=== PATIENT | male | born 1975 | race Caucasian/White ===

== ENCOUNTER 2019-01-16 09:19 | Emergency (ER) | payer BC, SELFPAY ==
[2019-01-16 09:20] VITALS: BP 218/134; PULSE 113; RESP 17; TEMP 37; O2SAT 96; BMI 47.5
[2019-01-16 09:31] VITALS: RESP 18
--- NOTE | 2019-01-16 09:31 | CT_ITS ---
STUDY: CT ABDOMEN AND PELVIS WITHOUT CONTRAST REASON FOR EXAM: Male, 43 years old. Left pelvic pain RADIATION DOSAGE (If Supplied By Facility): CTDIvol = ( 19.99 ) mGy, DLP = ( 2035.03 ) mGycm TECHNIQUE: Transaxial images were obtained from the dome of the diaphragm to the symphysis pubis without oral contrast, and without intravenous contrast. Sagittal and coronal images were reconstructed. Individualized dose optimization techniques were used for this CT. COMPARISON: None. FINDINGS: The visualized lung bases are unremarkable. The visualized portions of the heart are within normal limits. Normal liver. There is non-visualization of the gallbladder, which may be secondary to either contraction or a prior cholecystectomy. Normal spleen. Normal pancreas. Normal bilateral adrenal glands. Normal right kidney. Normal left kidney. Normal visualized stomach. Normal small intestine. There are a few scattered colonic diverticula. The appendix is visualized and appears normal. Appendix best seen on coronal recon image 61. Normal abdominal aorta. Normal inferior vena cava. Normal retroperitoneum. There is nonspecific induration of the pelvic fat is seen on axial image 178. This could be due to a focal diverticulitis but a cystitis can also not be excluded. No abscess cavity or free pelvic air noted. There is nonspecific bladder wall thickening, but the bladder is not completely distended. There are prostatic calcifications. Normal abdominal wall. Normal osseous structures. CT/Abdomen/Pelvis without Cont IMPRESSION: Colonic diverticulosis. No suspicious thickening of the colon noted, there is nonspecific induration of the pelvic fat which could be due to a focal diverticulitis or cystitis. Although the bladder is not completely distended, there is nonspecific circumferential bladder wall thickening. No suspicious solid organ abnormality No free intraperitoneal fluid, air, or suspicious adenopathy Electronically Signed: Sean Quiroga MD at 10:43 EDT , Service support ,
--- NOTE | 2019-01-16 09:32 | US_ITS ---
STUDY: SCROTUM ULTRASOUND REASON FOR EXAM: Male, 43 years old. Left testicular pain TECHNIQUE: Ultrasound evaluation of the scrotum was performed with color Doppler and static lala-scale imaging. COMPARISON: None. FINDINGS: RIGHT TESTICLE INTRATESTICULAR: There is a normal size of the right testicle. The right testicle measures 4.9 x 3.2 x 2.5 cm. There is a homogenous echotexture. There is normal arterial and normal venous vascularity. There is no demonstrated right testicular mass or cyst. EXTRATESTICULAR: The epididymis is normal in size. The epididymis head measures 2.3 x 1.1 x 1.3 cm. There is normal vascularity of the epididymis. There is an epididymal head cyst measuring 1.5 x 0.9 x 1 cm There is a small hydrocele. There are prominent extratesticular veins consistent with a varicocele. There is no demonstrated extratesticular mass or cyst. LEFT TESTICLE INTRATESTICULAR: There is a normal size of the left testicle. The left testicle measures 4.2 x 3.3 x 3 cm. There is a homogenous echotexture. There is increased arterial and increased venous vascularity. There is no demonstrated left testicular mass or cyst. EXTRATESTICULAR: The epididymis is normal in size. The epididymis head measures 1.7 x 1.6 x 1 cm. There is normal vascularity of the epididymis. There is no demonstrated epididymal cystic structure. There is a moderate to large size hydrocele. There are prominent extratesticular veins consistent with a varicocele. There is no demonstrated extratesticular mass or cyst. US/Testicular with Arterial Flow IMPRESSION: There is left testicular hyperemia which may represent orchitis. No evidence of testicular torsion. Small right and moderate to large left hydroceles. Bilateral varicoceles. Right epididymal head cyst. Electronically Signed: Nathanael Huizar, at 12:15 EDT Tel , Service support ,
--- NOTE | 2019-01-16 09:32 | RAD_ITS ---
STUDY: X-RAY CHEST REASON FOR EXAM: Male, 43 years old. Chest pain and cough TECHNIQUE: PA and lateral views of the chest. COMPARISON: 2012 FINDINGS: The lungs are clear and expanded. There is no demonstrated pleural abnormality. Normal size heart. Normal mediastinum and kip. Normal visualized pulmonary arteries. Normal visualized aortic arch and descending thoracic aorta. Normal visualized thoracic spine. Normal visualized ribs, clavicles, and shoulders. There is no demonstrated abnormality of the visualized soft tissue structures of the upper abdomen. RAD/Chest PA and Lateral IMPRESSION: Normal x-ray examination of the chest. Electronically Signed: Sean Quiroga MD at 10:15 EDT , Service support ,
--- NOTE | 2019-01-16 09:36 | ED.VIS.GEN ---
History of Present Illness Chief Complaint: Male Pain/Injury Narrative: 43-year-old male presents with left testicular pain that started last night. He then noticed bilateral flank pain, somewhat worse on the left that was radiating anteriorly. His left testicle became somewhat swollen. He then ejaculated and noticed blood in his semen which has never happened to him before. He denies lower extremity edema or right testicular swelling. Denies shortness of breath. Denies weakness. He has a history of labile blood pressure and does not take blood pressure medication. He denies any recent testicular trauma. Denies concern for STD. No dysuria or hematuria, just blood in his semen. Past Medical History - Allergies and Home Meds Allergies/Adverse Reactions: Allergies No Known Allergies Allergy (Verified 01/16/19 09:20) Primary Care Physician: Care Physician,No Primary [Primary Care Provider] - Surgical History: no surgical history Smoking Status: Current every day smoker Review of Systems All systems negative except as indicated General: Denies: Chills, Fever, Sweats Eyes: Denies: Visual changes - bilaterally, Diplopia ENT: Denies: Rhinorrhea, Sore throat Cardiovascular: Denies: Chest pain, Palpitations Respiratory: Denies: Dyspnea, Cough, Dyspnea on exertion Gastrointestinal: Denies: Abdominal pain, Nausea, Vomiting, Diarrhea, Melena, Hematochezia Genitourinary: Reports: - - left testicle swelling/pain. Denies: Dysuria, Hematuria, Frequency Musculoskeletal: Reports: Back pain. Denies: Extremity Pain Skin: Denies: Rash, Wounds Neurological: Denies: Headache, Weakness, Numbness Physical Exam Vital Signs/Narrative: Vital Signs Temp Pulse Resp BP Pulse Ox 01/16/19 09:31 18 01/16/19 09:20 98.6 F 113 H 17 218/134 H 96 General: Well nourished, Well developed, No Acute Distress Head: Normocephalic, Atraumatic Eyes: Perrl, EOMI ENT: Moist mucous membranes, No rhinorrhea Neck: Supple, Nontender Cardiovascular: Regular rate, Regular rhythm, No murmurs Respiratory: No distress, CTA bilaterally, Chest nontender Abdomen: Soft, Nontender, Nondistended, Normal bowel sounds : - - Left testicular swelling, blood in semen Back: Nontender, Normal Inspection Extremities: Nontender, No edema Skin: Normal color, No rash Neurological: Alert, Oriented x3, Cranial nerves II-XII grossly intact, Normal Strength, Normal Sensation Psychological: Normal affect, Normal Mood Diagnostic/Tx/Re-eval - Medical Decision Making CT abdomen/pelvis revealed inflammation around the bladder. No obstructing ureteral stone. His urine appears infected with positive nitrites and bacteria. It was sent for a culture. White blood cell count only mildly elevated at 12.7. Chemistry panel unremarkable. Ultrasound the left testicle was consistent with orchitis. He was given Percocet for pain. I discussed the case with Dr. England who recommended oral Bactrim and close follow-up. The patient was instructed to come back if he develops a fever or is unable to tolerate his oral medication, or worse pain. ED Disposition - Plan for ED Patient: Disposition: Home or Assisted Living Diagnosis: Orchitis of left testicle, Lower urinary tract infection, acute Instructions: Orchitis, Urinary Tract Infections in Men, Bladder Infection, Male (Adult) Prescriptions: Smz/Tmp Ds [Bactrim Ds] 1 tablet PO BID #20 tablet Naproxen [Naprosyn] 500 mg PO BID PRN #20 tablet Referrals: Ye England MD [STAFF PHYSICIAN] - As soon as possible
[2019-01-16 09:51] LABS: Absolute Lymphocyte Count 1.78 X10^3/uL (0.83-4.51); Absolute Neutrophil Count 9.7 X10^3/uL (2.0-7.7); Basophil# 0.07 X10^3/uL; Basophil% 0.6 % (0-1); Eosinophil# 0.14 X10^3/uL; Eosinophils% 1.1 % (0-5); Hematocrit 52.1 % (40-54); Hemoglobin 17.5 g/dL (13.0-16.5); Lymphocyte # 1.78 X10^3/ul (4.0); Lymphocyte % 14.1 % (19-41); Mean Corp Hgb Conc 33.6 g/dL (32-36); Mean Corpuscular Hgb 31.6 pg (27.0-32.0); Mean Corpuscular Volume 94.2 fL (80-94); Mean Platelet Vol. 10.4 fl (6.2-12.0); Monocyte# 0.93 X10^3/uL; Monocyte% 7.3 % (0-10); NRBC Flagged by Analyzer 0 % (0-5); Neutrophil # 9.68 X10^3/uL (2.7-7.7); Neutrophil % 76.4 % (47-70); Platelet Count 179 K/mm3 (150-450); RBC Distribution Width CV 13.2 % (11.6-14.6); RBC Distribution Width SD 45.9 fl (35.1-43.9); Red Blood Count 5.53 M/mm3 (4.6-6.2); White Blood Count 12.7 K/mm3 (4.4-11.0)
[2019-01-16 10:02] LABS: Anion Gap 3 (5-15); BUN 16 mg/dL (7-18); BUN/Creat Ratio 17.5 RATIO (10-20); Calcium,Total 8.7 mg/dL (8.5-10.1); Chloride 108 mmol/L (98-107); Creatinine, Serum 0.91 mg/dL (0.70-1.30); EST Glomerular Filtration Rate 95 mL/min (>60); Est Glom Filt Rate - Afr Amer 115 mL/min (>60); Estimated Creatinine Clearance 105.85 ml/min; Glucose 104 mg/dL (74-106); Potassium 4.1 mmol/L (3.5-5.1); Sodium Level 140 mmol/L (136-145)
[2019-01-16 10:12] LABS: Mucous, Urine 0 SEEN /hpf (<or=2+); Squamous Epithelial Cells - UA 0 SEEN /hpf (0-5)
[2019-01-16 10:17] LABS: Color, Urine Amber (Yellow); Glucose, Dipstick Normal (Normal); Ketone-Dipstick 5 mg/dl (Negative); Leukocyte Esterase-Dipstick 500 /ul (Negative); Nitrite-Dipstick Positive (Negative); Occult Blood-Urine 250 /ul (Negative); Protein-Dipstick 30 mg/dl (Negative); Specific Gravity, Urine 1.015 (1.002-1.030); Urine Bilirubin Dipstick Negative (Negative); Urine Clarity Cloudy (Clear); Urine Urobilinogen 1 mg/dl (Normal); Urine pH 6.5 (5.0 - 8.0)
[2019-01-16 10:25] LABS: Red Blood Cells-Urine 50-100 SEEN /hpf (0-5); White Blood Cells 5-10 SEEN /hpf (0-5)
[2019-01-16 10:26] LABS: Bacteria 3+ /hpf (None Seen)
[2019-01-16] MEDS: oxyCODONE 5 MG Tablet PO (12:10)
[2019-01-16] MEDS: Smz/Tmp Ds Tablet 1 TABLET PO (12:10)
[2019-01-16 12:11] VITALS: RESP 18
== END 2019-01-16 13:33 | disposition home or self-care (01) ==
PROVIDERS: Emergency Provider Emergency Medicine
DX: N45.2 Orchitis (principal); N39.0 Urinary tract infection, site not specified; F17.200 Nicotine dependence, unspecified, uncomplicated
CPT/HCPCS: 71046; 74176; 76870; 80048; 81001; 85025; 87077; 87086; 87088; 87186; 93976; 99283; A4216

== ENCOUNTER 2021-09-12 12:46 | Emergency (ER) | payer MEDICAID, SELFPAY ==
[2021-09-12 12:46] VITALS: BP 218/126; PULSE 120; RESP 18; TEMP 36.1; O2SAT 95; BMI 50.3
[2021-09-12 14:14] VITALS: BP 207/127; PULSE 108; RESP 18; O2SAT 95
--- NOTE | 2021-09-12 14:22 | EDS_ITS ---
HPI <LYNSEY Stone - Last Filed: 09/12/21 15:57> History of Present Illness Chief Complaint: Hypertension Narrative Narrative: 46-year-old male presents with high blood pressure. He states he has not seen a doctor since 2012. Yesterday he went to get his Covid booster shot but he had a cough so they would not administer it. They checked his blood pressure and it was high in the 200s/100s. He states when he told his friends at the [facility] they guilt tripped into coming to the ER to get checked out. He has never been on medication for HTN. He states he had a cold last week and now just has his chronic smoker's cough. He smokes 1.5 PPD. He has a [id number] history. He has dyspnea on exertion but denies chest pain. He has occasional lower extremity swelling. He has no known cardiac history. He states his blood pressure has been high for a while and some visiting clinic at the [facility] prescribe him BP meds but it was never sent to his pharmacy. [facility] <LYNSEY Stone - Last Filed: 09/12/21 15:57> [facility] Medical History (Updated 09/12/21 @ 15:18 by LYNSEY Stone) Cholecystectomy planned Home Medications naproxen 500 mg PO BID PRN #20 tab 01/16/19 [Rx Last Taken Unknown] sulfamethoxazole-trimethoprim 1 tab PO BID #20 tab 01/16/19 [Rx Last Taken Unknown] metoprolol tartrate [Lopressor] 50 mg PO DAILY #30 tab 09/12/21 [Rx Last Taken Unknown] Allergy/AdvReac Type Severity Reaction Status Date / Time No Known Allergies Allergy Verified 01/16/19 09:20 Social History Smoking Status: Current every day smoker tobacco type: cigarettes ROS <LYNSEY Stone - Last Filed: 09/12/21 15:57> ROS ED ROS Narrative Constitutional: Negative for fever, chills, malaise. Eyes: Negative for visual change. ENT: Negative for sore throat, rhinorrhea. CVS: Negative for palpitations, chest pain, syncope. Respiratory: Positive for dyspnea on exertion, cough. Negative for orthopnea. GI: Negative for abdominal pain, nausea, vomiting, diarrhea, constipation, melena, hematochezia. : Negative for dysuria, hematuria or frequency. Neuro: Negative for headache, motor/sensory dysfunction. Skin: Negative for rash, abscess, or wound. Musc: Negative for joint pain, swelling, trauma. Heme: Negative for easy bruising, bleeding, lymphadenopathy. EXAM <LYNSEY Stone - Last Filed: 09/12/21 15:57> Physical Exam Narrative Exam Narrative: CONST: Patient sitting in no acute distress. EYES: Normal inspection. ENT: Normal inspection, moist mucous membranes. NECK: Normal inspection. RESP: No respiratory distress, CTAB. CVS: Regular rate and rhythm, no murmur, no gallop. ABD: Soft and nontender, no guarding or rebound, nondistended. Back: Normal inspection, no CVA tenderness. SKIN: Color normal, no rash, warm, dry, intact. EXTREMITIES: Normal appearance, 1+ pitting edema both ankles. NEURO: Oriented x4. PSYCH: Normal affect. Const Vital Signs: 09/12/21 12:46 09/12/21 14:12 09/12/21 14:14 Temperature 97 F L Temperature Source Temporal Pulse Rate 120 H 108 H Respiratory Rate 18 18 Respiratory Pattern Normal Blood Pressure 218/126 H 207/127 H Blood Pressure Mean 156 153 Pulse Ox 95 95 Oxygen Delivery Method Room Air Room Air 09/12/21 14:33 09/12/21 16:15 Temperature 98.4 F Temperature Source Pulse Rate 101 H 84 Respiratory Rate 22 H 14 Respiratory Pattern Blood Pressure 197/122 H 190/107 H Blood Pressure Mean 147 Pulse Ox 96 98 Oxygen Delivery Method Room Air <Ervin Ryan MD - Last Filed: 09/12/21 22:54> Physical Exam Const Vital Signs: 09/12/21 12:46 09/12/21 14:12 09/12/21 14:14 Temperature 97 F L Temperature Source Temporal Pulse Rate 120 H 108 H Respiratory Rate 18 18 Respiratory Pattern Normal Blood Pressure 218/126 H 207/127 H Blood Pressure Mean 156 153 Pulse Ox 95 95 Oxygen Delivery Method Room Air Room Air 09/12/21 14:33 09/12/21 16:15 Temperature 98.4 F Temperature Source Pulse Rate 101 H 84 Respiratory Rate 22 H 14 Respiratory Pattern Blood Pressure 197/122 H 190/107 H Blood Pressure Mean 147 Pulse Ox 96 98 Oxygen Delivery Method Room Air MDM <LYNSEY Stone - Last Filed: 09/12/21 15:57> MDM MDM Narrative Medical decision making narrative: Patient presents with asymptomatic hypertension. In triage his BP was 218/126, heart rate 120, otherwise normal. During my examination his blood pressure remained high but his heart rate is around 105. His heart is rapid but regular. Lungs are clear to auscultation. Abdomen soft and nontender. He has scant lower extremity edema. EKG is normal sinus rhythm with no acute ischemia. Basic labs and troponin are obtained and show no end-organ damage. Chest x-ray was negative. He was treated with IV labetalol 10 mg and BP improved to 188/113. He is likely had underlying high blood pressure for a long period of time as he has not seen a doctor in many years. He will be started on metoprolol 50 mg once daily and was given a PCP referral. He was discharged in stable condition. Diagnosis 1. Hypertension Lab Data Labs: Laboratory Results - last 24 hr 09/12/21 09/12/21 14:20 14:20 WBC 9.9 RBC 5.43 Hgb 17.4 H Hct 50.6 MCV 93.2 MCH 32.0 MCHC 34.4 RDW Std Deviation 43.9 RDW Coeff of Angelo 12.8 Plt Count 181 MPV 9.6 Immature Gran % (Auto) 0.400 Neut % (Auto) 72.8 H Lymph % (Auto) 16.8 L [place] % (Auto) 8.0 Eos % (Auto) 1.5 Baso % (Auto) 0.5 Absolute Neuts (auto) 7.2 Absolute Lymphs (auto) 1.66 Nucleated RBC % 0 Sodium 141 Potassium 3.7 Chloride 108 H Carbon Dioxide 31.0 Anion Gap 2 L BUN 20 H Creatinine 1.01 Estim Creat Clear Calc 95.26 Est GFR (MDRD) Af Amer 101 Est GFR (MDRD) Non-Af 84 BUN/Creatinine Ratio 19.8 Glucose 102 Calcium 9.4 Troponin I High Sens 27 Radiography Diagnostic Testing: Clinical Impression(s) from Imaging Studies Chest X-Ray 09/12/21 14:50 IMPRESSION: There are no acute findings. Electronically Signed: Anshul Gonzales MD at 15:19 EDT , ED attending interpretation of chest x-ray shows normal heart size, no acute infiltrate or edema EKG Initial EKG: Attestation: I personally reviewed and interpreted this EKG as follows: Interpretation: Sinus Rhythm Comments: Normal sinus rhythm, normal intervals, no acute ischemia <Ervin Ryan MD - Last Filed: 09/12/21 22:54> MDM MDM Narrative Medical decision making narrative: ATTENDING NOTE: Dr. Ryan: The patient was seen in conjunction with the PA-C/nurse practitioner. I performed a history and physical, and agree with the management of this patient. I agree with noted documentation and plan. I discussed the plan of care and final disposition with the physician associate/nurse practitioner. Elevated blood pressure. Asymptomatic. No chest pain or shortness of breath. Afebrile. Vital signs noted. Regular rate and rhythm. Lungs clear to auscultation bilaterally. Abdomen soft nontender. Neurological examination nonfocal and nonlateralizing. Check labs. Antihypertensives. Follow-up primary care. Discharge. Lab Data Attestation: I reviewed the patient's lab results. Labs: Laboratory Results - last 24 hr 09/12/21 09/12/21 14:20 14:20 WBC 9.9 RBC 5.43 Hgb 17.4 H Hct 50.6 MCV 93.2 MCH 32.0 MCHC 34.4 RDW Std Deviation 43.9 RDW Coeff of Angelo 12.8 Plt Count 181 MPV 9.6 Immature Gran % (Auto) 0.400 Neut % (Auto) 72.8 H Lymph % (Auto) 16.8 L [place] % (Auto) 8.0 Eos % (Auto) 1.5 Baso % (Auto) 0.5 Absolute Neuts (auto) 7.2 Absolute Lymphs (auto) 1.66 Nucleated RBC % 0 Sodium 141 Potassium 3.7 Chloride 108 H Carbon Dioxide 31.0 Anion Gap 2 L BUN 20 H Creatinine 1.01 Estim Creat Clear Calc 95.26 Est GFR (MDRD) Af Amer 101 Est GFR (MDRD) Non-Af 84 BUN/Creatinine Ratio 19.8 Glucose 102 Calcium 9.4 Troponin I High Sens 27 Radiography Diagnostic Testing: Clinical Impression(s) from Imaging Studies Chest X-Ray 09/12/21 14:50 IMPRESSION: There are no acute findings. Electronically Signed: Anshul Gonzales MD at 15:19 EDT , Discharge Plan Triage Chief Complaint: Hypertension ED Provider: Lakisha Loving Dx/Rx/DC Orders Clinical Impression: Hypertension Instructions: ED High Blood Pressure Hypertension Prescriptions: New metoprolol tartrate [Lopressor] 50 mg tablet 50 mg PO DAILY Qty: 30 RF: 2 No Action sulfamethoxazole-trimethoprim 1 TABLET tablet 1 tab PO BID Qty: 20 RF: 0 naproxen 500 MG tablet 500 mg PO BID PRN Qty: 20 RF: 0 Primary Care Provider: Care Physician,No Primary Referrals: Lakisha Paris DO [STAFF PHYSICIAN] - Care Physician,No Primary [Primary Care Provider] - Activity Restrictions/Additional Instructions: I am prescribing a blood pressure medication called metoprolol 50 mg. Take this once daily at the same time every day. Please call the primary care doctor listed above for a follow-up appointment. Disposition Disposition: Home, Self Care Discharge Date/Time: 09/12/21 16:16
[2021-09-12 14:31] LABS: Absolute Lymphocyte Count 1.66 X10^3/uL (0.83-4.51); Absolute Neutrophil Count 7.2 X10^3/uL (2.0-7.7); Basophil# 0.05 X10^3/uL; Basophil% 0.5 % (0-1); Eosinophil# 0.15 X10^3/uL; Eosinophils% 1.5 % (0-5); Hematocrit 50.6 % (40-54); Hemoglobin 17.4 g/dL (13.0-16.5); Lymphocyte # 1.66 X10^3/ul (0.83-4.51); Lymphocyte % 16.8 % (19-41); Mean Corp Hgb Conc 34.4 g/dL (32-36); Mean Corpuscular Volume 93.2 fL (80-94); Mean Platelet Vol. 9.6 fl (6.2-12.0); Monocyte# 0.79 X10^3/uL; NRBC Flagged by Analyzer 0 % (0-5); Neutrophil # 7.19 X10^3/uL (2.7-7.7); Neutrophil % 72.8 % (47-70); Platelet Count 181 K/mm3 (150-450); RBC Distribution Width CV 12.8 % (11.6-14.6); RBC Distribution Width SD 43.9 fl (35.1-43.9); Red Blood Count 5.43 M/mm3 (4.6-6.2); White Blood Count 9.9 K/mm3 (4.4-11.0)
[2021-09-12] MEDS: Labetalol (Prefilled) 20 MG/4 ML 10 MG IV (14:32)
[2021-09-12 14:33] VITALS: BP 197/122; PULSE 101; RESP 22; O2SAT 96
[2021-09-12 14:47] LABS: Anion Gap 2 (5-15); BUN 20 mg/dL (7-18); BUN/Creat Ratio 19.8 RATIO (10-20); Calcium,Total 9.4 mg/dL (8.5-10.1); Chloride 108 mmol/L (98-107); Creatinine, Serum 1.01 mg/dL (0.70-1.30); EST Glomerular Filtration Rate 84 mL/min (>60); Est Glom Filt Rate - Afr Amer 101 mL/min (>60); Estimated Creatinine Clearance 95.26 ml/min; Glucose 102 mg/dL (74-106); Potassium 3.7 mmol/L (3.5-5.1); Sodium Level 141 mmol/L (136-145); Troponin-I HS 27 pg/mL (3.0-78.0)
--- NOTE | 2021-09-12 14:50 | RAD_ITS ---
STUDY: X-RAY CHEST REASON FOR EXAM: Male, 46 years old. Hypertension PAIN dyspnea TECHNIQUE: XR Chest 1 View COMPARISON: 01/16/2019 FINDINGS: There is no demonstrated pleural abnormality. There is borderline cardiomegaly. Normal mediastinum and kip. Normal visualized pulmonary arteries. Normal visualized aortic arch and descending thoracic aorta. There are diffuse degenerative changes of the visualized thoracic spine. There is degenerative osteoarthritis of the bilateral shoulders. There is no demonstrated abnormality of the visualized soft tissue structures of the upper abdomen. RAD/Chest 1 View (Portable) IMPRESSION: There are no acute findings. Electronically Signed: Anshul Gonzales MD at 15:19 EDT ,
--- NOTE | 2021-09-12 15:32 | EKG12_ITS ---
Test Reason : Blood Pressure : / mmHG Vent. Rate : 095 BPM Atrial Rate : 095 BPM P-R Int : 170 ms QRS Dur : 124 ms QT Int : 402 ms P-R-T Axes : 063 025 084 degrees QTc Int : 505 ms Normal sinus rhythm Normal ECG Confirmed by HARLEY MCGILL, RICHARD ([id number]), editor at large DEMETRIO TREVINO ([id number]) on 09/15/2021 11:13:36 A M Referred By: BRENT Confirmed By:DENISE SOUZA MD
[2021-09-12] MEDS: Metoprolol(XL)Succ 50 MG Tablet PO (15:49)
[2021-09-12 16:15] VITALS: BP 190/107; PULSE 84; RESP 14; TEMP 36.9; O2SAT 98
--- NOTE | 2021-09-15 13:28 | CM.ED ---
ED RNCM DC F/u Call: Called patient listed number on demographics. No answer and VM does not identify correct patient identity- therefore no VM left at this time. Patient marked Homeless per demographics, No h/o HTN but prescribed rx meds for HTN by clinic with [facility] in past but clinic never sent rx to pharmacy/or patient never picked up per chart documentation from ER MD. Rx for HTN and PCP list provided this ED visit- attempt to f/u to inquire if any issues picking up/filling medication and/or establishing care with a PCP. Sari Burton RNCM
== END 2021-09-12 16:16 | disposition home or self-care (01) ==
PROVIDERS: Emergency Provider Physician Assistant; Visit Provider Physician Assistant
DX: I10 Essential (primary) hypertension (principal); F17.210 Nicotine dependence, cigarettes, uncomplicated
CPT/HCPCS: 71045; 80048; 84484; 85025; 93005; 96374; 99285

== ENCOUNTER 2022-05-01 21:13 | Emergency (ER) | payer MEDICAID, SELFPAY ==
[2022-05-01 21:15] VITALS: BP 220/155; PULSE 109; RESP 20; TEMP 36.7; O2SAT 95; BMI 50.1
--- NOTE | 2022-05-01 22:04 | EKG12_ITS ---
Test Reason : DYSRHYTHMIA Blood Pressure : / mmHG Vent. Rate : 098 BPM Atrial Rate : 098 BPM P-R Int : 162 ms QRS Dur : 124 ms QT Int : 400 ms P-R-T Axes : 055 043 077 degrees QTc Int : 510 ms Normal sinus rhythm Normal ECG Confirmed by PURVI MCGILL, SHWETHA ([id number]), editor & co founder KEYSHAWN TROY ([id number]) on 05/04/2022 11:42:36 AM Referred By: MARY Confirmed By:SHWETHA LOJA MD
[2022-05-01] MEDS: Labetalol (Prefilled) 20 MG/4 ML IV ×2 (22:13→23:19)
[2022-05-01 22:15] VITALS: BP 178/148; PULSE 87; RESP 18; O2SAT 95
[2022-05-01] MEDS: cloNIDine HCl 0.2 MG Tablet PO (22:21)
[2022-05-01 22:35] LABS: Absolute Lymphocyte Count 1.74 X10^3/uL (0.83-4.51); Absolute Neutrophil Count 8.6 X10^3/uL (2.0-7.7); Basophil# 0.06 X10^3/uL; Basophil% 0.5 % (0-1); Eosinophil# 0.13 X10^3/uL; Eosinophils% 1.1 % (0-5); Hematocrit 45.2 % (40-54); Hemoglobin 14.9 g/dL (13.0-16.5); Lymphocyte # 1.74 X10^3/ul (0.83-4.51); Lymphocyte % 15.4 % (19-41); Mean Corpuscular Hgb 30.3 pg (27.0-32.0); Mean Corpuscular Volume 91.9 fL (80-94); Mean Platelet Vol. 10.4 fl (6.2-12.0); Monocyte# 0.77 X10^3/uL; Monocyte% 6.8 % (0-10); NRBC Flagged by Analyzer 0 % (0-5); Neutrophil # 8.55 X10^3/uL (2.7-7.7); Neutrophil % 75.7 % (47-70); Platelet Count 213 K/mm3 (150-450); RBC Distribution Width CV 13.2 % (11.6-14.6); RBC Distribution Width SD 44.4 fl (35.1-43.9); Red Blood Count 4.92 M/mm3 (4.6-6.2); White Blood Count 11.3 K/mm3 (4.4-11.0)
[2022-05-01 22:59] LABS: Anion Gap 7 (5-15); BUN 18 mg/dL (7-18); BUN/Creat Ratio 19.5 RATIO (10-20); Calcium,Total 8.9 mg/dL (8.5-10.1); Chloride 108 mmol/L (98-107); Creatinine, Serum 0.92 mg/dL (0.70-1.30); EST Glomerular Filtration Rate 93 mL/min (>60); Est Glom Filt Rate - Afr Amer 112 mL/min (>60); Estimated Creatinine Clearance 104.58 ml/min; Glucose 97 mg/dL (74-106); Sodium Level 142 mmol/L (136-145); Troponin-I HS 88 pg/mL (3.0-78.0)
[2022-05-01 23:03] VITALS: BP 205/127; PULSE 86; RESP 18; O2SAT 92
[2022-05-01 23:45] VITALS: BP 163/103; PULSE 73; RESP 18; O2SAT 91
[2022-05-02 00:33] VITALS: BP 158/97; PULSE 79; RESP 18; O2SAT 94
[2022-05-02 01:05] LABS: Troponin-I HS 84 pg/mL (3.0-78.0)
[2022-05-02 02:00] VITALS: O2SAT 93
[2022-05-02 02:09] VITALS: BP 172/95; PULSE 69; RESP 16; O2SAT 87
[2022-05-02 03:09] LABS: Troponin-I HS 78 pg/mL (3.0-78.0)
--- NOTE | 2022-05-02 03:15 | EX.ED.DYSGE1 ---
HPI History of Present Illness Chief Complaint: Hypertension Narrative Narrative: Patient is a 46-year-old male with history of hypertension morbid obesity and tobacco abuse. He states he is prescribed 2 different blood pressure medications but does not know what they are and states that he does not take them as directed most days. He states this evening he ate food prepared by his roommate which had a large amount of salt and he felt like his blood pressure began to elevate after this. He states he checked it at home and it was high and it was not coming down with time and therefore he presents to the ER for evaluation. The patient denies any headache change in vision chest pain or shortness of breath associated with this. He denies any excessive stimulant use or illicit drug use [facility] Medical History (Updated 05/02/22 @ 04:[address] Jose Wall DO) Cholecystectomy planned Home Medications naproxen 500 mg tablet 500 mg PO BID PRN #20 tabs 01/16/19 [Rx Last Taken Unknown] sulfamethoxazole 800 mg-trimethoprim 160 mg tablet 1 tab PO BID #20 tabs 01/16/19 [Rx Last Taken Unknown] metoprolol tartrate 50 mg tablet (Lopressor) 50 mg PO DAILY #30 tabs 09/12/21 [Rx Last Taken Unknown] Allergy/AdvReac Type Severity Reaction Status Date / Time No Known Allergies Allergy Verified 05/01/22 21:18 Social History Smoking Status: Current every day smoker tobacco type: cigarettes ROS ROS ED Constitutional Constitutional ED: Denies chills or fever(s) Eyes Eyes: Denies change in vision ENT ENT ED: Denies sore throat Cardiovascular Cardiovascular: Denies chest pain Respiratory/Chest Respiratory/Chest: Denies cough or dyspnea Gastrointestinal Gastrointestinal: Denies abdominal pain, diarrhea, nausea or vomiting Genitourinary Genitourinary ED: Denies dysuria Musculoskeletal Musculoskeletal: Denies myalgias Integumentary Denies rash Neurologic Neurologic: Denies headache(s) Hematologic/Lymphatic Hematologic/Lymphatic: Denies easy bleeding or easy bruising EXAM Physical Exam Const Vital Signs: 05/01/22 21:15 05/01/22 21:25 05/01/22 22:15 Temperature 98.0 F Temperature Source Oral Pulse Rate 109 H 87 Respiratory Rate 20 H 18 Respiratory Pattern Normal Blood Pressure 220/155 H 178/148 H Blood Pressure Mean 176 158 Pulse Ox 95 95 Oxygen Delivery Method Room Air Room Air Oxygen Flow Rate (L/min) 05/01/22 23:03 05/01/22 23:45 05/02/22 00:33 Temperature Temperature Source Pulse Rate 86 73 79 Respiratory Rate 18 18 18 Respiratory Pattern Blood Pressure 205/127 H 163/103 H 158/97 H Blood Pressure Mean 153 123 117 Pulse Ox 92 91 94 Oxygen Delivery Method Room Air Room Air Room Air Oxygen Flow Rate (L/min) 05/02/22 02:09 05/02/22 02:00 05/02/22 03:22 Temperature Temperature Source Pulse Rate 69 74 Respiratory Rate 16 16 Respiratory Pattern Blood Pressure 172/95 H 157/94 H Blood Pressure Mean 120 Pulse Ox 87 93 97 Oxygen Delivery Method Room Air Nasal Cannula Oxygen Flow Rate (L/min) 2 Positive well nourished, well developed and obese General Appearance ED: well developed Nutritional Appearance: obese Eyes PERRL and EOMs intact bilaterally Neck supple Resp normal respiratory effort Resp Narrative: Breath sounds are diminished throughout with faint expiratory wheeze and rhonchi in bilateral bases distant smoking history but no signs of respiratory distress Cardio regular rate and regular rhythm Rate: other Other Details: Radial pulses are +2-4 bilaterally are equal and symmetric Carotid pulses are equal and symmetric as well GI normal to inspection, nondistended, normoactive bowel sounds, non-tender and non-distended GI Narrative: No voluntary guarding or rigidity no pulsatile mass Auscultation: normoactive bowel sounds Palpation: soft Extremity normal to inspection Neuro oriented x3, CN's II-XII intact bilaterally and no sensory deficits noted Neuro Narrative: Cranial nerves II through XII are grossly intact no focal neurologic deficits. No pronator drift no dysmetria no truncal ataxia. NIH stroke scale score of 0 Sensorium / Orientation: alert Psych mental status grossly normal Skin no rashes or lesions noted MDM MDM MDM Narrative Medical decision making narrative: Patient presented to the ER hypertensive approximately 220/155. With this however he had no signs of endorgan damage or hypertensive encephalopathy. However in order to ensure that there was no endorgan damage from the hypertensive event a basic work-up was obtained. Labs revealed normal kidney function but his initial troponin was elevated at 88. Despite this elevation his EKG was normal sinus rhythm and he had no complaint of chest pain. A 2-hour delta was obtained which decreased to 84. His blood pressure has been reduced by approximately 25% and I do feel that the initial elevation to the troponin was secondary to the hypertension. In order to ensure that symptoms are improving with blood pressure control I like to perform a third troponin which decreased even further to 78. On reevaluation the patient still does not have any chest pain and now that his blood pressure has been controlled and his work-up does not show any signs of endorgan damage she is otherwise safe for discharge Lab Data Attestation: I reviewed the patient's lab results. Labs: Laboratory Results - last 24 hr 05/01/22 05/01/22 05/02/22 22:21 22:21 00:20 WBC 11.3 H RBC 4.92 Hgb 14.9 Hct 45.2 MCV 91.9 MCH 30.3 MCHC 33.0 RDW Std Deviation 44.4 H RDW Coeff of Angelo 13.2 Plt Count 213 MPV 10.4 Immature Gran % (Auto) 0.500 Neut % (Auto) 75.7 H Lymph % (Auto) 15.4 L [place] % (Auto) 6.8 Eos % (Auto) 1.1 Baso % (Auto) 0.5 Absolute Neuts (auto) 8.6 H Absolute Lymphs (auto) 1.74 Nucleated RBC % 0 Sodium 142 Potassium 4.0 Chloride 108 H Carbon Dioxide 27.0 Anion Gap 7 BUN 18 Creatinine 0.92 Estim Creat Clear Calc 104.58 Est GFR (MDRD) Af Amer 112 Est GFR (MDRD) Non-Af 93 BUN/Creatinine Ratio 19.5 Glucose 97 Calcium 8.9 Troponin I High Sens 88 H 84 H 05/02/22 02:30 WBC RBC Hgb Hct MCV MCH MCHC RDW Std Deviation RDW Coeff of Angelo Plt Count MPV Immature Gran % (Auto) Neut % (Auto) Lymph % (Auto) [place] % (Auto) Eos % (Auto) Baso % (Auto) Absolute Neuts (auto) Absolute Lymphs (auto) Nucleated RBC % Sodium Potassium Chloride Carbon Dioxide Anion Gap BUN Creatinine Estim Creat Clear Calc Est GFR (MDRD) Af Amer Est GFR (MDRD) Non-Af BUN/Creatinine Ratio Glucose Calcium Troponin I High Sens 78 Discharge Plan Triage Chief Complaint: Hypertension ED Provider: Jose Wall Dx/Rx/DC Orders Clinical Impression: Accelerated hypertension, Tobacco abuse disorder, Morbid obesity Instructions: ED Hypertension, Established Prescriptions: No Action sulfamethoxazole-trimethoprim 1 TABLET tablet 1 tab PO BID Qty: 20 0RF naproxen 500 MG tablet 500 mg PO BID PRN Qty: 20 0RF metoprolol tartrate [Lopressor] 50 mg tablet 50 mg PO DAILY Qty: 30 2RF Primary Care Provider: Care Physician,No Primary Referrals: Samuel Jaffe MD [STAFF PHYSICIAN] - Care Physician,No Primary [Primary Care Provider] - Activity Restrictions/Additional Instructions: Please continue your blood pressure medications as previously directed and return to the ER should you have any further concerns Disposition Disposition: Home, Self Care Discharge Date/Time: 05/02/22 03:23
[2022-05-02 03:22] VITALS: BP 157/94; PULSE 74; RESP 16; O2SAT 97
== END 2022-05-02 03:23 | disposition home or self-care (01) ==
PROVIDERS: Emergency Provider Emergency Medicine; Visit Provider Emergency Medicine
DX: I10 Essential (primary) hypertension (principal); E66.01 Morbid (severe) obesity due to excess calories; F17.210 Nicotine dependence, cigarettes, uncomplicated
CPT/HCPCS: 80048; 84484; 85025; 93005; 99284; A4216

== ENCOUNTER 2022-05-09 17:40 | Inpatient (IN) | payer MEDICAID, SELFPAY ==
[2022-05-09] VITALS (8 sets, daily range): BP systolic 166–221; BP diastolic 110–137; PULSE 91–108; RESP 18–28; TEMP 36.6–37.1; O2SAT 89–99; BMI 50.1; BMI 58.1
--- NOTE | 2022-05-09 18:00 | EKG12_ITS ---
Test Reason : HYPERTENSION Blood Pressure : / mmHG Vent. Rate : 096 BPM Atrial Rate : 096 BPM P-R Int : 150 ms QRS Dur : 114 ms QT Int : 400 ms P-R-T Axes : 058 033 083 degrees QTc Int : 505 ms Normal sinus rhythm Possible Left atrial enlargement Incomplete right bundle branch block Prolonged QT Abnormal ECG Confirmed by PURVI MCGILL, SHWETHA ([id number]), technical writer and editor DEMETRIO TREVINO ([id number]) on 05/12/2022 11:08:53 AM Referred By: Confirmed By:SHWETHA LOJA MD
--- NOTE | 2022-05-09 18:01 | EX.ED.DYSGE1 ---
HPI History of Present Illness Chief Complaint: Hypertension Informant: patient Narrative Narrative: Patient states the primary reason he came in is he feels his blood pressure is up. He states he feels slightly dizzy. For him this is a nonspecific sense of motion. He is not dizzy right now. He also feels more short of breath. He has been feeling short of breath for about a week. He now tells me that he has been having coughing this week. He has no sputum production. He is having wheezing. He denies a history of asthma but has been on steroid inhalers, rescue inhalers, and is a long-term smoker. He has also been on steroids for his breathing before. He takes metoprolol and lisinopril for blood pressure. At first he was not sure when he last took it. He then states he took metoprolol this morning he thinks. But he has not taken lisinopril for about 2 weeks. He states he was told to take 1 pill a day. So he will take metoprolol 1 month and then switch to lisinopril the next month. He also admits to frequently missing dosages. He also complains that he has some thrush. This has been a problem before. It is worse when he uses steroid inhalers. He denies being diabetic. He states it causes him to have [place]. Patient denies chest pain or palpitations. He states his temperature has been up and down but his fever does not stay. But he has not checked his temperature but he does have symptoms consistent with that. [facility] Medical History (Updated 05/09/22 @ 22:[address] Matt Davenport MD) HTN (hypertension) Morbid obesity Tobacco abuse disorder Home Medications naproxen 500 mg tablet 500 mg PO BID PRN #20 tabs 01/16/19 [Rx Last Taken Unknown] sulfamethoxazole 800 mg-trimethoprim 160 mg tablet 1 tab PO BID #20 tabs 01/16/19 [Rx Last Taken Unknown] metoprolol tartrate 50 mg tablet (Lopressor) 50 mg PO DAILY #30 tabs 09/12/21 [Rx Last Taken Unknown] Allergy/AdvReac Type Severity Reaction Status Date / Time No Known Allergies Allergy Verified 05/09/22 17:40 Surgical History (Updated 05/09/22 @ 20:[address] Meghan Mejía MD) History of lithotripsy History of tonsillectomy and adenoidectomy Hx of cholecystectomy Social History (Updated 05/09/22 @ 20:[address] Meghan Mejía MD) Smoking Status: Current every day smoker tobacco type: cigarettes Smoking packs per day: 1.5 Smoking cigarettes per day: 30.0 alcohol intake: never substance use type: does not use ROS ROS ED Constitutional Constitutional ED: Reports subjective Eyes Eyes: Denies change in vision or diplopia ENT ENT ED: Reports sore throat and other Details: Thrush. ; Denies ear pain or rhinorrhea Cardiovascular Cardiovascular: Denies chest pain, palpitations or racing heartbeat Respiratory/Chest Respiratory/Chest: Reports cough, dyspnea and other Details: Patient is not sure if he has sputum. He has coughed up a little bit of clear material on occasion. No blood. Gastrointestinal Gastrointestinal: Denies abdominal pain, nausea or vomiting Genitourinary Genitourinary ED: Denies dysuria, hematuria or urinary frequency Musculoskeletal Musculoskeletal: Denies arthralgias, back pain or myalgias Integumentary Denies rash Neurologic Neurologic: Denies headache(s) Psychiatric Psychiatric: Denies anxiety Endocrine Endocrinology: Denies polydipsia or polyuria Hematologic/Lymphatic Hematologic/Lymphatic: Denies easy bleeding or easy bruising Allergic/Immunologic Allergic/Immunologic ED: Denies urticaria EXAM Physical Exam Const Vital Signs: 05/09/22 17:42 05/09/22 18:10 05/09/22 18:15 Temperature 97.8 F Temperature Source Temporal Pulse Rate 104 H 100 Respiratory Rate 18 18 Respiratory Effort Short of Breath Respiratory Pattern Hyperpnea Blood Pressure 206/121 H Blood Pressure Mean 149 Pulse Ox 99 Oxygen Delivery Method Room Air Oxygen Flow Rate (L/min) 05/09/22 19:40 05/09/22 19:56 05/09/22 20:51 Temperature 98.5 F Temperature Source Oral Pulse Rate 108 H 93 92 Respiratory Rate 28 H 23 H 22 H Respiratory Effort Respiratory Pattern Blood Pressure 221/137 H 189/111 H Blood Pressure Mean 165 137 Pulse Ox 89 94 Oxygen Delivery Method Room Air Nasal Cannula Oxygen Flow Rate (L/min) 2 05/09/22 21:51 Temperature Temperature Source Pulse Rate 91 Respiratory Rate 21 H Respiratory Effort Respiratory Pattern Blood Pressure Blood Pressure Mean Pulse Ox Oxygen Delivery Method Oxygen Flow Rate (L/min) Positive well nourished and obese Constitutional Narrative: Patient is awake alert. He is laying back in bed. Breathing is overall unlabored. General Appearance ED: NAD Nutritional Appearance: obese HEENT Reports moist mucous membranes HEENT Narrative: Patient is essentially edentulous. Gums are a little bit red. There may be a small amount of thrush but is not significant. Eyes EOMs intact bilaterally General Eye ED: Negative for scleral icterus Neck supple Neck Narrative: No JVD noted. This would be difficult as he has a somewhat thick neck. Chest Wall inspection of chest normal Resp normal respiratory effort Resp Narrative: Breathing does not seem labored. Patient carries on normal conversation. But he does have a very notable wheezing on exam. Cardio regular rhythm Rate: tachycardic and other Other Details: Rate ranges from about 90-105. It is sinus rhythm. No ectopy noted. GI normal to inspection, nondistended, normoactive bowel sounds and non-tender Narrative: No CVA tenderness. Back/Spine no CVA tenderness Extremity Extremity Narrative: Patient does have bilaterally large legs. He has some chronic stasis changes. No tenderness. No asymmetry. Neuro oriented x3 Neuro Narrative: Patient is not sleepy or lethargic. Sensorium / Orientation: Negative for lethargic or stuporous Psych mental status grossly normal Skin no rashes or lesions noted MDM MDM MDM Narrative Medical decision making narrative: X-ray was hinting of bilateral pneumonia. At this point we added further blood work. There was no sign of congestive heart failure on labs. Troponin was negative. However his white count was elevated. Lactate was normal. We did listen to him again after his breathing treatment. He was actually wheezing quite a bit more. We have given him a second treatment. The patient will desaturate if we take oxygen off. When we walked him he went down to 85%. I am giving him a third treatment. He is overall doing better. He is more comfortable. He is sitting calmly in bed at 2 L and not desaturating even asleep. Blood pressure is down but still a bit up. We will give him a small dose of hydralazine. With his x-ray findings, cough, dyspnea, high white count we will bring him in the hospital. He is also wheezing quite a bit. I think this likely represents undiagnosed COPD/emphysema. He has been a lifelong smoker. He has smoked for about 32 years. He smokes about a pack and a half a day. He has used inhalers but denies ever officially being diagnosed with COPD. I discussed the case with hospitalist. Lab Data Attestation: I reviewed the patient's lab results. Labs: Laboratory Results - last 24 hr 05/09/22 05/09/22 05/09/22 19:22 19:22 19:22 WBC 14.6 H RBC 4.86 Hgb 14.7 Hct 45.5 MCV 93.6 MCH 30.2 MCHC 32.3 RDW Std Deviation 46.6 H RDW Coeff of Angelo 13.7 Plt Count 214 MPV 10.1 Immature Gran % (Auto) 0.500 Neut % (Auto) 80.4 H Lymph % (Auto) 9.0 L [place] % (Auto) 9.1 Eos % (Auto) 0.6 Baso % (Auto) 0.4 Absolute Neuts (auto) 11.8 H Absolute Lymphs (auto) 1.32 Nucleated RBC % 0 Sodium 142 Potassium 3.7 Chloride 107 Carbon Dioxide 31.0 Anion Gap 4 L BUN 17 Creatinine 0.93 Estim Creat Clear Calc 103.46 Est GFR (MDRD) Af Amer 111 Est GFR (MDRD) Non-Af 92 BUN/Creatinine Ratio 18.2 Glucose 100 Lactic Acid Calcium 9.0 Troponin I High Sens 38 B-Natriuretic Peptide 93.6 05/09/22 20:00 WBC RBC Hgb Hct MCV MCH MCHC RDW Std Deviation RDW Coeff of Angelo Plt Count MPV Immature Gran % (Auto) Neut % (Auto) Lymph % (Auto) [place] % (Auto) Eos % (Auto) Baso % (Auto) Absolute Neuts (auto) Absolute Lymphs (auto) Nucleated RBC % Sodium Potassium Chloride Carbon Dioxide Anion Gap BUN Creatinine Estim Creat Clear Calc Est GFR (MDRD) Af Amer Est GFR (MDRD) Non-Af BUN/Creatinine Ratio Glucose Lactic Acid 0.9 Calcium Troponin I High Sens B-Natriuretic Peptide Radiography Diagnostic Testing: Clinical Impression(s) from Imaging Studies Chest X-Ray 05/09/22 18:30 IMPRESSION: Bilateral pneumonia. Electronically Signed: Anshul Gonzales MD at 18:58 EST , X-ray is read as bilateral pneumonia. Some of these changes also could be from his body habitus. It does look somewhat similar to prior although does have slightly more markings. Discharge Plan Dx/Rx/DC Orders Clinical Impression: COPD exacerbation, Bilateral pneumonia, Hypoxia Disposition Disposition: Acute Care Hospital [facility]
[2022-05-09] MEDS: Ipratropium/Albuterol Sulfate 3 ML AMPUL.NEB INHALATION (18:14)
[2022-05-09] MEDS: cloNIDine HCl 0.2 MG Tablet PO (18:15)
[2022-05-09] MEDS: Lisinopril 20 MG Tablet PO (18:15)
--- NOTE | 2022-05-09 18:30 | RAD_ITS ---
STUDY: X-RAY CHEST REASON FOR EXAM: Male, 46 years old. CHEST PAIN cough TECHNIQUE: XR Chest 1 View COMPARISON: 3 FINDINGS: There is no demonstrated pleural abnormality. There is bilateral infiltrate. Normal size heart. Normal mediastinum and kip. Normal visualized pulmonary arteries. Normal visualized aortic arch and descending thoracic aorta. Normal visualized thoracic spine. Normal visualized ribs, clavicles, and shoulders. There is no demonstrated abnormality of the visualized soft tissue structures of the upper abdomen. RAD/Chest 1 View (Portable) IMPRESSION: Bilateral pneumonia. Electronically Signed: Anshul Gonzales MD at 18:58 EST ,
[2022-05-09 19:39] LABS: Absolute Lymphocyte Count 1.32 X10^3/uL (0.83-4.51); Absolute Neutrophil Count 11.8 X10^3/uL (2.0-7.7); Basophil# 0.06 X10^3/uL; Basophil% 0.4 % (0-1); Eosinophil# 0.09 X10^3/uL; Eosinophils% 0.6 % (0-5); Hematocrit 45.5 % (40-54); Hemoglobin 14.7 g/dL (13.0-16.5); Lymphocyte # 1.32 X10^3/ul (0.83-4.51); Mean Corp Hgb Conc 32.3 g/dL (32-36); Mean Corpuscular Hgb 30.2 pg (27.0-32.0); Mean Corpuscular Volume 93.6 fL (80-94); Mean Platelet Vol. 10.1 fl (6.2-12.0); Monocyte# 1.33 X10^3/uL; Monocyte% 9.1 % (0-10); NRBC Flagged by Analyzer 0 % (0-5); Neutrophil # 11.76 X10^3/uL (2.7-7.7); Neutrophil % 80.4 % (47-70); Platelet Count 214 K/mm3 (150-450); RBC Distribution Width CV 13.7 % (11.6-14.6); RBC Distribution Width SD 46.6 fl (35.1-43.9); Red Blood Count 4.86 M/mm3 (4.6-6.2); White Blood Count 14.6 K/mm3 (4.4-11.0)
--- NOTE | 2022-05-09 19:40 | ED.RN ---
pt ambulated on room air, pulse ox dropped to 85%, placed on 2lnc
[2022-05-09 19:52] LABS: Anion Gap 4 (5-15); BUN 17 mg/dL (7-18); BUN/Creat Ratio 18.2 RATIO (10-20); Chloride 107 mmol/L (98-107); Creatinine, Serum 0.93 mg/dL (0.70-1.30); EST Glomerular Filtration Rate 92 mL/min (>60); Est Glom Filt Rate - Afr Amer 111 mL/min (>60); Estimated Creatinine Clearance 103.46 ml/min; Glucose 100 mg/dL (74-106); Potassium 3.7 mmol/L (3.5-5.1); Sodium Level 142 mmol/L (136-145); Troponin-I HS 38 pg/mL (3.0-78.0)
[2022-05-09] MEDS: Albuterol 2.5 MG/3 ML VIAL.NEB. INHALATION ×2 (19:55→21:50)
[2022-05-09 19:59] LABS: BNP,B-Type NATRIURETIC PEPTIDE 93.6 pg/mL (0-100)
[2022-05-09] MEDS: Ceftriaxone 1 GM/50 ML BAG IV (20:10)
[2022-05-09] MEDS: MethylPREDNISolone 125 MG/2 ML Vial IV (20:11)
[2022-05-09 20:45] LABS: Lactic Acid 0.9 mmol/L (0.4-1.9)
--- NOTE | 2022-05-09 22:31 | PCM.HP.STD ---
HPI - General General Date of Admission: 05/09/22 Date of Service: 05/09/22 Chief Complaint: Cough, dyspnea, wheezing. HPI Narrative The patient is a 46 y/o M w/ PMHx: Suspected CARSON (notes gasping for air, snoring if sleeps on his back, no formal testing), Morbid Obesity, HTN, Asthma/COPD, Tobacco use who presents to the [facility] ED on 05/09/22 with history of onset of dizziness with dyspnea ongoing for the last week with a nonproductive cough and associated wheezing with intermittently notes having felt febrile but never checked his temperature prompting eventual ED presentation. He has been using his steroid inhalers more frequently and as a result has thrush. Patient recently was in the emergency room 05/02/2022 for elevated blood pressure and at that time reported he is not been taking his medications and reports to medications that he is previously been prescribed at that time but unclear specific ones. Work-up in the ED included T98.5, heart rate 108 initially with most recent repeat 93, BP initially 221/137 believing he did not take his blood pressure medication on day of presentation-->166/118 which is his prior baseline from review of trending, initially respiratory rate 18, 99% on room air however most recent repeat 89% on room air, CBC with WC 14.6, he 114.7, platelet 214 with left shift, BMP unremarkable, troponin 38, BNP 93.6, lactic acid 0.8, chest x-ray with questionable bilateral pneumonia, rapid SARS COVID antigen and influenza negative, blood culture x2 pending per ED. In the ED patient administered albuterol, DuoNeb therapy, Solu-Medrol 125 mg IV x1 as well as lisinopril 20 mg, clonidine 0.2 mg, azithromycin 5 mg IV x1, Rocephin 1 g IV x1. [facility] Medical History (Updated 05/09/22 @ 22:[address] Meghan Mejía MD) COPD with asthma HTN (hypertension) Morbid obesity Tobacco abuse disorder Home Medications naproxen 500 mg tablet 500 mg PO BID PRN #20 tabs 01/16/19 [Rx Last Taken Unknown] sulfamethoxazole 800 mg-trimethoprim 160 mg tablet 1 tab PO BID #20 tabs 01/16/19 [Rx Last Taken Unknown] metoprolol tartrate 50 mg tablet (Lopressor) 50 mg PO DAILY #30 tabs 09/12/21 [Rx Last Taken Unknown] Allergy/AdvReac Type Severity Reaction Status Date / Time No Known Allergies Allergy Verified 05/09/22 17:40 Family History (Updated 05/09/22 @ 22:[address] Meghan Mejía MD) Father Diabetes Family History other other (Patient does not know his maternal family history well but denies hx of DM, HD, CA.) Surgical History (Updated 05/09/22 @ 20:[address] Meghan Mejía MD) History of lithotripsy History of tonsillectomy and adenoidectomy Hx of cholecystectomy Social History (Updated 05/09/22 @ 20:[address] Meghan Mejía MD) Smoking Status: Current every day smoker tobacco type: cigarettes Smoking packs per day: 1.5 Smoking cigarettes per day: 30.0 alcohol intake: never substance use type: does not use ROS ROS Narrative Admission Review of Systems: CONSTITUTIONAL: No weight loss, fever, chills, + weakness or fatigue. HEENT: + Congestion, rhinorrhea. Eyes: No visual loss, blurred vision, double vision or yellow sclerae. Ears, Nose, Throat: No hearing loss, sneezing. SKIN: No rash or itching, lesions, wounds. CARDIOVASCULAR: No chest pain, chest pressure or chest discomfort, palpitations, edema, orthopnea, syncopal events. RESPIRATORY: + shortness of breath, cough with occasional sputum, wheezing, No hemoptysis. GASTROINTESTINAL: + anorexia, No nausea, vomiting or diarrhea, abdominal pain, melena, BRBPR. GENITOURINARY: No dysuria, frequency, urgency or retention. NEUROLOGICAL: No headache, dizziness, syncope, paralysis, ataxia, numbness or tingling in the extremities, focal weakness, change in bowel or bladder control, seizure. MUSCULOSKELETAL: + muscle, back pain, joint pain or stiffness. HEMATOLOGIC: No anemia, bleeding or bruising. LYMPHATICS: No enlarged nodes. No history of splenectomy. PSYCHIATRIC: No history of depression or anxiety. ENDOCRINOLOGIC: + reports of sweating, cold or heat intolerance. No polyuria or polydipsia. ALLERGIES: + history of asthma, rhinitis. Vital Signs Vital Signs Vital Signs: 05/09/22 17:42 05/09/22 18:10 05/09/22 18:15 Temperature 97.8 F Temperature Source Temporal Pulse Rate 104 H 100 Respiratory Rate 18 18 Respiratory Effort Short of Breath Respiratory Pattern Hyperpnea Blood Pressure 206/121 H Blood Pressure Mean 149 Pulse Ox 99 Oxygen Delivery Method Room Air Oxygen Flow Rate (L/min) 05/09/22 19:40 05/09/22 19:56 05/09/22 20:51 Temperature 98.5 F Temperature Source Oral Pulse Rate 108 H 93 92 Respiratory Rate 28 H 23 H 22 H Respiratory Effort Respiratory Pattern Blood Pressure 221/137 H 189/111 H Blood Pressure Mean 165 137 Pulse Ox 89 94 Oxygen Delivery Method Room Air Nasal Cannula Oxygen Flow Rate (L/min) 2 05/09/22 21:51 05/09/22 21:48 Temperature 98.1 F Temperature Source Oral Pulse Rate 91 95 Respiratory Rate 21 H 26 H Respiratory Effort Respiratory Pattern Blood Pressure 166/118 H Blood Pressure Mean 134 Pulse Ox 94 Oxygen Delivery Method Nasal Cannula Oxygen Flow Rate (L/min) 2 Weight Weight: 359 lb 5.655 oz Body Mass Index (BMI) 50.1 Physical Exam Narrative Physical Examination: General: Awake, alert, oriented x 3 and cooperative, seated upright in the ED bed, fatigued and ill-appearing, diaphoretic. Skin: Normal color, normal turgor, no icterus, no cyanosis. HEENT: AT/NC, EOMI, PERRLA, dry MM, mild thrush, no carotid bruits or JVD noted. Lungs: Significantly diminished, diffuse expiratory wheezing, no specific rales or rhonchi, mild increased respiratory rate but no distress. Heart: Regular rate and rhythm; no gallop, rub audible. Abdomen: Soft, morbidly obese, no obvious tenderness to palpation, difficult to assess distention given habitus, distant bowel sounds, unable to discern HSM well given habitus. Extremities: No cyanosis, clubbing, or edema. Neurological: Patient awake, alert, oriented as noted, cognitive function intact; pupils equally reactive to light and accommodation, cranial nerves II-XII grossly normal, moving all 4 extremities, no focal deficits, strength moderately to severely global decrease secondary to acute presentation Psychiatric: Affect appears fatigued, ill-appearing, no acute evidence of depressive or anxiety feelings. Results Lab / Micro Data Result Diagrams: 05/09/22 19:22 05/09/22 19:22 Labs: Laboratory Results - last 24 hr 05/09/22 19:22: WBC 14.6 H, RBC 4.86, Hgb 14.7, Hct 45.5, MCV 93.6, MCH 30.2, MCHC 32.3, RDW Std Deviation 46.6 H, RDW Coeff of Angelo 13.7, Plt Count 214, MPV 10.1, Immature Gran % (Auto) 0.500, Neut % (Auto) 80.4 H, Lymph % (Auto) 9.0 L, [place] % (Auto) 9.1, Eos % (Auto) 0.6, Baso % (Auto) 0.4, Absolute Neuts (auto) 11.8 H, Absolute Lymphs (auto) 1.32, Nucleated RBC % 0 05/09/22 19:22: Sodium 142, Potassium 3.7, Chloride 107, Carbon Dioxide 31.0, Anion Gap 4 L, BUN 17, Creatinine 0.93, Estim Creat Clear Calc 103.46, Est GFR (MDRD) Af Amer 111, Est GFR (MDRD) Non-Af 92, BUN/Creatinine Ratio 18.2, Glucose 100, Calcium 9.0, Troponin I High Sens 38 05/09/22 19:22: B-Natriuretic Peptide 93.6 05/09/22 20:00: Lactic Acid 0.9 Micro: Microbiology 05/09/22 18:20 Nasal Secretion SARS-CoV-2 & FLU Antigen (Rapid) - Final Radiology Impression Chest X-Ray 05/09/22 18:30 IMPRESSION: Bilateral pneumonia. Electronically Signed: Anshul Gonzales MD at 18:58 EST Reading Location ID and State: [facility] [place] / MD , Service support , Assessment & Plan Assessment/Plan (1) COPD exacerbation: (2) Bilateral pneumonia: (3) Hypoxia: PLAN: Plan The patient is a 46 y/o M w/ PMHx: Suspected CARSON (notes gasping for air, snoring if sleeps on his back, no formal testing), Morbid Obesity, HTN, Asthma/COPD, Tobacco use who presents to the [facility] ED on 05/09/22 with history of onset of dizziness with dyspnea ongoing for the last week with a nonproductive cough and associated wheezing with intermittently notes having felt febrile but never checked his temperature prompting eventual ED presentation. #1. Community Acquired Pneumonia w/ associated Acute Asthma/COPD Exacerbation and Acute Hypoxia: Will admit to MS, maintain on oxygen with wean as tolerated to room air, continue ATC duonebs, PRN albuterol, maintained on IV Rocephin and Azithromycin, HOB, IS parameters w/ pending sputum cultures, full respiratory viral panel, COVID PCR and urine antigens. Bld cx x 2 obtained in the ED. #2. Hypertension, uncontrolled: From external records patient was on losartan 50 mg daily, although it appears this has not been filled since August 2021. Patient also reports being on metoprolol but no external record. Awaiting clarification especially given history. BP improved with clonidine and lisinopril. Will maintain on lisinopril, add HCTZ, PRN hydralazine with further adjustments pending repeat blood pressure trending. #3. Tobacco Abuse: Encouraged cessation, inpatient consultation per RT, NR if desired. #4. Morbid Obesity: Weight loss and lifestyle changes encouraged, nutrition consulted for education and teaching especially given uncontrolled hypertension. #5. Mild oral thrush: We will maintain on oral nystatin swish and swallow. #6. Suspected CARSON: Patient does admit to gasping for air and waking himself up when he sleeps on his back but has never had formal sleep apnea testing, will maintain on continuous trending pulse ox. #7. DVT prophylaxis: SCDs, Lovenox. Charges/Coding Visit Charges Inpatient E&M: 86640 Init Hosp L3
[2022-05-09] MEDS: hydrALAZINE 20 MG/ML Vial 10 MG IV (22:32)
[2022-05-09] MEDS: 0.9% Normal Saline 1,000 ML 125 ML IV (23:44)
[2022-05-09] MEDS: NYSTATIN 500,000 UNIT/5 ML UDC 500000 UNIT PO (23:56)
[2022-05-10] VITALS (24 sets, daily range): BP systolic 144–181; BP diastolic 74–103; PULSE 84–101; RESP 17–20; TEMP 36.2–36.9; O2SAT 94–98
[2022-05-10] MEDS: hydrALAZINE 20 MG/ML Vial 10 MG IV ×3 (02:39→17:42)
[2022-05-10] MEDS: 0.9% Saline Lock 10 ML Syringe IV ×4 (02:39→21:06)
[2022-05-10] MEDS: guaiFENesin 10 ML UDC (200MG/10ML) 20 ML PO (02:39)
[2022-05-10] MEDS: Ipratropium/Albuterol Sulfate 3 ML AMPUL.NEB INHALATION ×4 (07:15→19:24)
[2022-05-10 07:22] LABS: Absolute Lymphocyte Count 0.75 X10^3/uL (0.83-4.51); Absolute Neutrophil Count 14.4 X10^3/uL (2.0-7.7); Basophil# 0.03 X10^3/uL; Basophil% 0.2 % (0-1); Hematocrit 48.7 % (40-54); Hemoglobin 15.8 g/dL (13.0-16.5); Lymphocyte # 0.75 X10^3/ul (0.83-4.51); Lymphocyte % 4.8 % (19-41); Mean Corp Hgb Conc 32.4 g/dL (32-36); Mean Corpuscular Hgb 30.6 pg (27.0-32.0); Mean Corpuscular Volume 94.4 fL (80-94); Mean Platelet Vol. 10.3 fl (6.2-12.0); Monocyte# 0.18 X10^3/uL; Monocyte% 1.2 % (0-10); NRBC Flagged by Analyzer 0 % (0-5); Neutrophil # 14.44 X10^3/uL (2.7-7.7); Neutrophil % 93.2 % (47-70); Platelet Count 236 K/mm3 (150-450); RBC Distribution Width CV 13.7 % (11.6-14.6); RBC Distribution Width SD 47.2 fl (35.1-43.9); Red Blood Count 5.16 M/mm3 (4.6-6.2); White Blood Count 15.5 K/mm3 (4.4-11.0)
[2022-05-10 07:55] LABS: ALB/GLOB Ratio 0.9 RATIO (0.9-2.4); AST(SGOT) 14 U/L (15-37); Alanine Aminotransfer ALT/SGPT 26 U/L (16-61); Albumin, Serum 3.5 g/dL (3.2-5.0); Alkaline Phosphatase 81 U/L (45-117); Anion Gap 7 (5-15); BUN 16 mg/dL (7-18); BUN/Creat Ratio 15.1 RATIO (10-20); Calcium,Total 8.7 mg/dL (8.5-10.1); Chloride 103 mmol/L (98-107); Creatinine, Serum 1.06 mg/dL (0.70-1.30); EST Glomerular Filtration Rate 79 mL/min (>60); Est Glom Filt Rate - Afr Amer 96 mL/min (>60); Estimated Creatinine Clearance 90.77 ml/min; Globulin 3.8 g/dL (2.2-4.2); Glucose 163 mg/dL (74-106); Protein, Total 7.3 g/dL (6.4-8.2); Sodium Level 139 mmol/L (136-145)
--- NOTE | 2022-05-10 08:48 | PCM.PN.HOSP ---
Subjective Subjective Doing well, no issues overnight. Maintaining his oxygen saturations on 2 L nasal cannula. Objective Data Objective Data Vital Signs: Vital Signs Temp Pulse Resp BP Pulse Ox O2 Del Method O2 Flow Rate 97.2 F L 96 18 166/102 H 98 Nasal Cannula 2 05/10/22 08:17 05/10/22 08:33 05/10/22 08:17 05/10/22 08:17 05/10/22 08:17 05/10/22 08:25 05/10/22 08:17 Oxygen Flow Rate (L/min) 2 Oxygen Delivery Method Nasal Cannula Weight: 416 lb 14.306 oz Body Mass Index (BMI) 58.1 Intake & Output: Intake and Output for Last 24 Hours 05/09/22 05/10/22 05/11/22 03:59 03:59 03:59 Intake Total 305 / 305 1000 / 1000 Balance 305 / 305 1000 / 1000 Lab / Micro Data Result Diagrams: 05/10/22 06:52 05/10/22 06:52 Labs: Laboratory Results - last 24 hr 05/09/22 19:22: WBC 14.6 H, RBC 4.86, Hgb 14.7, Hct 45.5, MCV 93.6, MCH 30.2, MCHC 32.3, RDW Std Deviation 46.6 H, RDW Coeff of Angelo 13.7, Plt Count 214, MPV 10.1, Immature Gran % (Auto) 0.500, Neut % (Auto) 80.4 H, Lymph % (Auto) 9.0 L, [place] % (Auto) 9.1, Eos % (Auto) 0.6, Baso % (Auto) 0.4, Absolute Neuts (auto) 11.8 H, Absolute Lymphs (auto) 1.32, Nucleated RBC % 0 05/09/22 19:22: Sodium 142, Potassium 3.7, Chloride 107, Carbon Dioxide 31.0, Anion Gap 4 L, BUN 17, Creatinine 0.93, Estim Creat Clear Calc 103.46, Est GFR (MDRD) Af Amer 111, Est GFR (MDRD) Non-Af 92, BUN/Creatinine Ratio 18.2, Glucose 100, Calcium 9.0, Troponin I High Sens 38 05/09/22 19:22: B-Natriuretic Peptide 93.6 05/09/22 20:00: Lactic Acid 0.9 05/10/22 00:21: COVID-19 (DEEPTI) Not Detected 05/10/22 06:52: WBC 15.5 H, RBC 5.16, Hgb 15.8, Hct 48.7, MCV 94.4 H, MCH 30.6, MCHC 32.4, RDW Std Deviation 47.2 H, RDW Coeff of Angelo 13.7, Plt Count 236, MPV 10.3, Immature Gran % (Auto) 0.600, Neut % (Auto) 93.2 H, Lymph % (Auto) 4.8 L, [place] % (Auto) 1.2, Eos % (Auto) 0.0, Baso % (Auto) 0.2, Absolute Neuts (auto) 14.4 H, Absolute Lymphs (auto) 0.75 L, Nucleated RBC % 0 05/10/22 06:52: Sodium 139, Potassium 4.0, Chloride 103, Carbon Dioxide 29.0, Anion Gap 7, BUN 16, Creatinine 1.06, Estim Creat Clear Calc 90.77, Est GFR (MDRD) Af Amer 96, Est GFR (MDRD) Non-Af 79, BUN/Creatinine Ratio 15.1, Glucose 163 H, Calcium 8.7, Total Bilirubin 0.80, AST 14 L, ALT 26, Alkaline Phosphatase 81, Total Protein 7.3, Albumin 3.5, Globulin 3.8, Albumin/Globulin Ratio 0.9 Micro: Microbiology 05/10/22 00:21 Interface Orders Respiratory Panel (PCR) - Final 05/10/22 00:05 Urine, Clean Catch Legionella Antigen - Final 05/10/22 00:05 Urine, Clean Catch Streptococcus pneumoniae Antigen (M - Final 05/09/22 18:20 Nasal Secretion SARS-CoV-2 & FLU Antigen (Rapid) - Final Radiography Diagnostic Testing: Radiology Impression Chest X-Ray 05/09/22 18:30 IMPRESSION: Bilateral pneumonia. Electronically Signed: Anshul Gonzales MD at 18:58 EST , Physical Exam Narrative General: Alert, Oriented x3, Cooperative, No apparent distress HEENT: Atraumatic, PERRLA, EOMI, Normocephalic Oral: Moist Mucosa Neck: Supple, No JVD Lungs: Diminished, Normal air movement, rhonchi, wheeze, No rales Cardiovascular: Regular rate, Regular Rhythm, Normal S1, Normal S2, No murmurs Abdomen: Soft, Non Tender, Non-Distended, No Hepato-splenomegaly Extremities: No edema, Capillary Refill Less than 3 Seconds Skin: No rashes, No breakdown Musculoskeletal: No Tenderness to Palpation of Joints or Extremities Neurological: Cranial nerves II-XII grossly intact, Motor Exam 5/5 strength throughout, Sensory exam intact to light touch and pain Psych/Mental Status: Normal Affect, Appropriate Assessment & Plan Assessment/Plan (1) COPD exacerbation: (2) Bilateral pneumonia: (3) Hypoxia: PLAN: Plan 1. Acute hypoxic respiratory failure secondary to immunity acquired pneumonia in the setting of a COPD exacerbation/tobacco abuse ? Continue with Rocephin and azithromycin ? Continue with steroids and breathing treatments ? Discussed tobacco cessation ? Given his body habitus would be beneficial for him to have a sleep study as an outpatient 2. Hypertension/morbid obesity ? Continue with his home blood pressure medications including the metoprolol ? We will continue to monitor and make adjustments as necessary ? BMI 58.1, discussed lifestyle modifications 3. Mild oral thrush ? Continue with nystatin DVT: Lovenox Charges/Coding Visit Charges Inpatient E&M: 46810 Subs Hosp L2
[2022-05-10] MEDS: Metoprolol Tartrate 50 MG Tablet PO (09:29)
[2022-05-10] MEDS: NYSTATIN 500,000 UNIT/5 ML UDC 500000 UNIT PO ×4 (09:29→21:06)
[2022-05-10] MEDS: Enoxaparin 40 MG/0.4 ML Syringe SC ×2 (09:29→21:06)
[2022-05-10] MEDS: Lisinopril 20 MG Tablet PO (09:29)
[2022-05-10] MEDS: hydroCHLOROthiazide 12.5mg 12.5 MG PO (09:29)
--- NOTE | 2022-05-10 13:28 | CPS ---
Patient was unable to produce a sputum sample.
[2022-05-10] MEDS: amLODIPine 10 MG Tablet PO (18:06)
[2022-05-10] MEDS: Ceftriaxone 1 GM/50 ML BAG IV (21:07)
[2022-05-11] VITALS (19 sets, daily range): BP systolic 150–171; BP diastolic 78–95; PULSE 87–115; RESP 18–20; TEMP 36.6–37.2; O2SAT 94–96
[2022-05-11] MEDS: 0.9% Saline Lock 10 ML Syringe IV (06:28)
[2022-05-11] MEDS: Ipratropium/Albuterol Sulfate 3 ML AMPUL.NEB INHALATION ×3 (07:19→19:42)
--- NOTE | 2022-05-11 07:30 | PN.HOSP_ITS ---
Subjective Subjective DOS: 05/11/2022 CC: Cough Reports continued cough but since admission has not been productive, shortness of breath slowly improving. Denying present chest pain, no significant swelling. Eating well. No other complaints this morning Objective Data Objective Data Vital Signs: Vital Signs Temp Pulse Resp BP Pulse Ox O2 Del Method O2 Flow Rate 97.8 F 95 18 150/93 H 95 Nasal Cannula 2 05/11/22 03:57 05/11/22 03:57 05/11/22 03:57 05/11/22 03:57 05/11/22 03:57 05/11/22 03:57 05/11/22 03:57 FiO2 2 05/11/22 03:57 Oxygen Flow Rate (L/min) 2 Oxygen Delivery Method Nasal Cannula Weight: 187.5 kg Body Mass Index (BMI) 58.1 Intake & Output: Intake and Output for Last 24 Hours 05/09/22 05/10/22 05/11/22 23:59 23:59 23:59 Intake Total 305 / 305 2455 / 2455 Output Total 200 / 200 Balance 305 / 305 2455 / 2255 -200 / -200 Lab / Micro Data Result Diagrams: 05/10/22 06:52 05/10/22 06:52 Labs: Laboratory Results - last 24 hr 05/10/22 06:52: Sodium 139, Potassium 4.0, Chloride 103, Carbon Dioxide 29.0, Anion Gap 7, BUN 16, Creatinine 1.06, Estim Creat Clear Calc 90.77, Est GFR (MDRD) Af Amer 96, Est GFR (MDRD) Non-Af 79, BUN/Creatinine Ratio 15.1, Glucose 163 H, Calcium 8.7, Total Bilirubin 0.80, AST 14 L, ALT 26, Alkaline Phosphatase 81, Total Protein 7.3, Albumin 3.5, Globulin 3.8, Albumin/Globulin Ratio 0.9 Micro: Microbiology 05/10/22 00:21 Interface Orders Respiratory Panel (PCR) - Final 05/10/22 00:05 Urine, Clean Catch Legionella Antigen - Final 05/10/22 00:05 Urine, Clean Catch Streptococcus pneumoniae Antigen (M - Francesca l 05/09/22 18:20 Nasal Secretion SARS-CoV-2 & FLU Antigen (Rapid) - Final Physical Exam Const alert and no apparent distress Constitutional Narrative: Oriented HEENT normocephalic and head/scalp atraumatic Eyes Eyes Narrative: EOM grossly intact, anicteric Neck supple Resp normal respiratory effort Resp Narrative: Difficult to auscultate secondary to body habitus, diminished at the this Cardio regular rate and regular rhythm GI soft to palpation, non-tender and non-distended Extremity Extremity Narrative: No edema appreciated Neuro moves all extremities Neuro Narrative: No overt focal deficits appreciated Psych Psych Narrative: Cooperative Assessment & Plan Assessment/Plan (1) COPD exacerbation: (2) Bilateral pneumonia: (3) Hypoxia: PLAN: Plan 38-year-old male with suspected history of CARSON though normal formal testing, morbid obesity, asthma/COPD, hypertension presented 04/29 with dizziness and dyspnea for 1 week with nonproductive cough and associated wheezing. #Acute hypoxic respiratory failure secondary to community-acquired pneumonia associated with acute COPD exacerbation and hypoxia Chest x-ray with questionable bilateral pneumonia flu and COVID-negative Blood cultures pending Albuterol as needed, DuoNebs, Solu-Medrol, azithromycin and Rocephin Would recommend sleep study as an outpatient Wean O2 as able, does seem to be improving #Hypertensive urgency on chronic hypertension Per report appears likely due to noncompliance Lisinopril, HCTZ, as needed hydralazine Blood pressure improving though not at goal #Tobacco abuse Encourage cessation #Morbid obesity Weight loss and lifestyle changes encouraged Nutrition consulted on admission for education and teaching especially given uncontrolled hypertension #Mild oral thrush Was started nystatin swish and swallow #Suspicion for CARSON History concerning for CARSON, on continuous pulse ox here Will need outpatient sleep study #DVT ppx: SCDs, Lovenox Clair Riggs MD Charges/Coding Visit Charges Inpatient E&M: 06992 Subs Hosp L2
[2022-05-11] MEDS: amLODIPine 10 MG Tablet PO (10:07)
[2022-05-11] MEDS: Enoxaparin 40 MG/0.4 ML Syringe SC ×2 (10:07→20:59)
[2022-05-11] MEDS: Metoprolol Tartrate 50 MG Tablet PO (10:07)
[2022-05-11] MEDS: NYSTATIN 500,000 UNIT/5 ML UDC 500000 UNIT PO ×4 (10:08→21:00)
[2022-05-11] MEDS: Lisinopril 20 MG Tablet PO (10:08)
[2022-05-11] MEDS: hydroCHLOROthiazide 12.5mg 12.5 MG PO (10:08)
[2022-05-11] MEDS: hydrALAZINE 20 MG/ML Vial 10 MG IV ×2 (10:21→20:54)
--- NOTE | 2022-05-11 10:48 | CASEMGMT ---
Addendum entered by Shelly Hinkle 05/11/22 15:45: Referral made to Patient Link. Original Note: RN AXEL Assessment: Face to Face with pt for initial transition planning/care coordination assessment. ANDRA REYNA introduced self and role at [facility], pt voices understanding and consents to assessment. Pt is A/O x4 and answers all questions appropriately at this time. Pt sitting up in bed on RA in no distress. Care providers, pharmacy, and demographics verified/updated. Admitting Dx: COPD, pna, HTN PCP:Pt denies. States everytime he goes to set one up, something else comes up that needs his attention more. Provided pt with a local healthcare directory list. Specialists:Pt denies. Preferred Pharmacy: [facility] Insurance: [facility] Prescription Benefit: yes LNOK: Pt does not have any contact listed and denies need to do so. States he needs to pick someone and does not want to do this yet. Living Arrangements: Pt lives with a friend, pt declines to list friend's name or address. He states it is in [place]. Pt lives in a two story house with 13 steps to enter with a rail. Pt reports he is I in ADL's and denies concerns at home. Transportation: Pt drives self but states he currently does not have a vehicle. Pt denies concerns with transportation. DME/HHC/SNF: Pt denies having any DME in the home, previous HHC or SNF stays. Pt states no concerns with going home at time of dc. States he is supposed to work tomorrow and is wondering if he will be dc'd. Pt states no further concerns/needs. CM to follow. Advised pt to ask CM if any further question/concerns/needs arise, voices understanding. Pt Goal: Home Plan: Home
--- NOTE | 2022-05-11 14:33 | EKG12_ITS ---
Test Reason : Blood Pressure : / mmHG Vent. Rate : 092 BPM Atrial Rate : 092 BPM P-R Int : 156 ms QRS Dur : 114 ms QT Int : 402 ms P-R-T Axes : 064 027 100 degrees QTc Int : 497 ms Somatic/Motion Artifact Normal sinus rhythm Confirmed by LINDA MCGILL, KAREN ([id number]), technical editor DEMETRIO TREVINO ([id number]) on 05/13/2022 7:57:49 AM Referred By: KIMBERLEY Confirmed By:KAREN MCKEON MD
[2022-05-11 15:12] LABS: Magnesium 2.3 mg/dL (1.6-2.6)
[2022-05-11 17:02] LABS: Anion Gap 8 (5-15); BUN 23 mg/dL (7-18); BUN/Creat Ratio 19.8 RATIO (10-20); Calcium,Total 9.3 mg/dL (8.5-10.1); Chloride 101 mmol/L (98-107); Creatinine, Serum 1.16 mg/dL (0.70-1.30); EST Glomerular Filtration Rate 71 mL/min (>60); Est Glom Filt Rate - Afr Amer 86 mL/min (>60); Estimated Creatinine Clearance 82.95 ml/min; Glucose 139 mg/dL (74-106); Potassium 3.9 mmol/L (3.5-5.1); Sodium Level 138 mmol/L (136-145)
[2022-05-11] MEDS: Ceftriaxone 1 GM/50 ML BAG IV (20:57)
[2022-05-11] MEDS: guaiFENesin 10 ML UDC (200MG/10ML) 20 ML PO (21:02)
[2022-05-12] VITALS (9 sets, daily range): BP systolic 145–158; BP diastolic 80–98; PULSE 88–103; RESP 16–20; TEMP 36.7–37.1; O2SAT 92–95
[2022-05-12 05:05] LABS: Absolute Lymphocyte Count 1.17 X10^3/uL (0.83-4.51); Absolute Neutrophil Count 16.6 X10^3/uL (2.0-7.7); Basophil# 0.05 X10^3/uL; Basophil% 0.3 % (0-1); Hemoglobin 15.3 g/dL (13.0-16.5); Lymphocyte # 1.17 X10^3/ul (0.83-4.51); Lymphocyte % 6.1 % (19-41); Mean Corp Hgb Conc 31.9 g/dL (32-36); Mean Corpuscular Hgb 29.9 pg (27.0-32.0); Mean Corpuscular Volume 93.8 fL (80-94); Mean Platelet Vol. 9.9 fl (6.2-12.0); Monocyte# 0.97 X10^3/uL; Monocyte% 5.1 % (0-10); NRBC Flagged by Analyzer 0 % (0-5); Neutrophil # 16.59 X10^3/uL (2.7-7.7); Neutrophil % 86.9 % (47-70); Platelet Count 285 K/mm3 (150-450); RBC Distribution Width CV 13.8 % (11.6-14.6); RBC Distribution Width SD 47.3 fl (35.1-43.9); Red Blood Count 5.12 M/mm3 (4.6-6.2); White Blood Count 19.1 K/mm3 (4.4-11.0)
[2022-05-12] MEDS: 0.9% Saline Lock 10 ML Syringe IV (05:07)
[2022-05-12 05:37] LABS: Anion Gap 6 (5-15); BUN 24 mg/dL (7-18); BUN/Creat Ratio 24.8 RATIO (10-20); Calcium,Total 8.8 mg/dL (8.5-10.1); Chloride 101 mmol/L (98-107); Creatinine, Serum 0.97 mg/dL (0.70-1.30); EST Glomerular Filtration Rate 88 mL/min (>60); Est Glom Filt Rate - Afr Amer 106 mL/min (>60); Estimated Creatinine Clearance 99.19 ml/min; Glucose 124 mg/dL (74-106); Potassium 4.1 mmol/L (3.5-5.1); Sodium Level 138 mmol/L (136-145)
[2022-05-12] MEDS: Ipratropium/Albuterol Sulfate 3 ML AMPUL.NEB INHALATION ×2 (07:19→11:06)
[2022-05-12] MEDS: Metoprolol Tartrate 50 MG Tablet PO (08:44)
[2022-05-12] MEDS: hydroCHLOROthiazide 12.5mg 12.5 MG PO (08:44)
[2022-05-12] MEDS: predniSONE 20 MG Tablet 40 MG PO (08:44)
[2022-05-12] MEDS: amLODIPine 10 MG Tablet PO (08:45)
[2022-05-12] MEDS: NYSTATIN 500,000 UNIT/5 ML UDC 500000 UNIT PO (08:45)
[2022-05-12] MEDS: Enoxaparin 40 MG/0.4 ML Syringe SC (08:45)
[2022-05-12] MEDS: Lisinopril 20 MG Tablet PO (08:45)
--- NOTE | 2022-05-12 10:59 | DCINST_ITS ---
Discharge Instructions Diet Discharge Diet: No restrictions Activity Discharge Activity: Return to Normal Activity Follow Up Care Test Results: Test results from this visit will be discussed in further detail at your follow- up appointment, if applicable. Discharge Plan Admission Admit Date/Time: 05/09/22 22:33 Primary Reason for Your Visit: Shortness of breath Attending Provider: Clair Riggs Primary Care Provider: Care Physician,No Primary Consulting Providers: Meghan Mejía ; Herb Williamson Instructions Patient Instructions: ED Pneumonia (Adult) Additional Instructions / Restrictions: ? Recommend that you discuss an outpatient sleep study with your primary care physician upon discharge ?You were diagnosed with pneumonia and was started on antibiotics and steroids as well as breathing treatments ? You will be discharged on Augmentin 875 mg twice daily starting this evening and continuing for 4 more days as well as azithromycin 500 mg for 1 more dose this evening ?Additionally you will be discharged on prednisone for 4 more days tomorrow 05/13 ? 2 inhalers will be sent to your preferred pharmacy on file to take over the next 10 days ? You were started on several blood pressure medications amlodipine, losartan, hydrochlorothiazide. These have been sent to your preferred pharmacy on file. Continue your home metoprolol -Please call your primary care provider's office upon discharge to schedule a hospital follow up within 1 week. If you do not have a primary care provider a list of local providers can be provided prior to discharge -For any concerning signs or symptoms please call 911 or proceed to the nearest emergency department Discharge Orders/Prescriptions Prescriptions: New lisinopril 20 mg Tablet 20 mg PO DAILY 30 Days Qty: 30 1RF prednisone 20 mg Tablet 40 mg PO BREAKFAST 4 Days Qty: 8 0RF amlodipine 10 mg Tablet 10 mg PO DAILY 30 Days Qty: 30 1RF hydrochlorothiazide 12.5 mg Capsule 12.5 mg PO DAILY 30 Days Qty: 30 1RF amoxicillin-pot clavulanate 875-125 mg tablet 1 tab PO BID Qty: 9 0RF Rx Instructions: Start first dose 05/12 at night azithromycin 500 mg tablet 500 mg PO DAILY 1 Days Qty: 1 0RF Rx Instructions: Take the night of 05/12 to finish your course albuterol sulfate 90 mcg/actuation HFA aerosol inhaler 2 inh inhalation Q6H 10 Days Qty: 8.5 0RF ipratropium bromide 17 mcg/actuation HFA aerosol inhaler 2 puff inhalation Q6H 10 Days Qty: 12.9 0RF Rx Instructions: administer with spacer Continued metoprolol tartrate [Lopressor] 50 mg tablet 50 mg PO DAILY Qty: 30 2RF Discontinued sulfamethoxazole-trimethoprim 1 TABLET tablet 1 tab PO BID Qty: 20 0RF naproxen 500 MG tablet 500 mg PO BID PRN Qty: 20 0RF Referrals / Follow Up: Care Physician,No Primary [Primary Care Provider] - Disposition Disposition (needs filled in before D/C Order can be placed): Home, Self Care
--- NOTE | 2022-05-12 11:15 | PCM.DC.SUM ---
Providers Date of Admission: 05/09/22 Date of Discharge: 05/12/22 Primary Care Physician: No Primary Care Phys Reason For Visit: COPD, PNEUMONIA, HYPERTENSION Diagnosis Discharge Diagnosis (1) COPD exacerbation: Status: Chronic Code(s): J44.1 - Chronic obstructive pulmonary disease with (acute) exacerbation (2) Bilateral pneumonia: Status: Acute Code(s): J18.9 - Pneumonia, unspecified organism (3) Hypoxia: Status: Acute Code(s): R09.02 - Hypoxemia Plan #Acute hypoxic respiratory failure secondary to community-acquired pneumonia associated with acute COPD exacerbation and hypoxia #Hypertensive urgency on chronic hypertension #Tobacco abuse #Morbid obesity #Mild oral thrush #Suspicion for CARSON Medications at Discharge Home Medications metoprolol tartrate 50 mg tablet (Lopressor) 50 mg PO DAILY #30 tabs 09/12/21 albuterol sulfate 90 mcg/actuation aerosol inhaler 2 inh inhalation Q6H 10 days #8.5 grams 05/12/22 amlodipine 10 mg tablet 10 mg PO DAILY 30 days #30 tabs 05/12/22 amoxicillin 875 mg-potassium clavulanate 125 mg tablet 1 tab PO BID #9 tabs 05/12/22 azithromycin 500 mg tablet 500 mg PO DAILY 1 day #1 TAB 05/12/22 hydrochlorothiazide 12.5 mg capsule 12.5 mg PO DAILY 30 days #30 caps 05/12/22 ipratropium bromide 17 mcg/actuation HFA aerosol inhaler 2 puff inhalation Q6H 10 days #12.9 grams 05/12/22 lisinopril 20 mg tablet 20 mg PO DAILY 30 days #30 tabs 05/12/22 prednisone 20 mg tablet 40 mg PO BREAKFAST 4 days #8 tabs 05/12/22 Hospital Course Summary of Care Provided Minutes Spent on Discharge: 32 Hospital Course: 38-year-old male with suspected history of CARSNO though normal formal testing, morbid obesity, asthma/COPD, hypertension presented 04/29 with dizziness and dyspnea for 1 week with nonproductive cough and associated wheezing. He was found to have bilateral pneumonia and was also deemed to have a COPD exacerbation. He was started on azithromycin and Rocephin as well as duo nebs and steroids. He improved significantly and was off oxygen, walk test revealed he did not need ambulatory oxygen either. Given his significant improvement he is ready for discharge 05/12. On day of discharge he reports breathing is certainly better, cough improved, no chest pain. Denies any other complaints today. He will be discharged on oral antibiotics, prednisone, inhalers as well as multiple blood pressure medications that were added to his regimen. Instructions given to patient as below: ? Recommend that you discuss an outpatient sleep study with your primary care physician upon discharge ?You were diagnosed with pneumonia and was started on antibiotics and steroids as well as breathing treatments ? You will be discharged on Augmentin 875 mg twice daily starting this evening and continuing for 4 more days as well as azithromycin 500 mg for 1 more dose this evening ?Additionally you will be discharged on prednisone for 4 more days tomorrow 05/13 ? 2 inhalers will be sent to your preferred pharmacy on file to take over the next 10 days ? You were started on several blood pressure medications amlodipine, losartan, hydrochlorothiazide.? These have been sent to your preferred pharmacy on file.? Continue your home metoprolol -Please call your primary care provider's office upon discharge to schedule a hospital follow up within 1 week.? If you do not have a primary care provider a list of local providers can be provided prior to discharge -For any concerning signs or symptoms please call 911 or proceed to the nearest emergency department Physical Exam Const alert and no apparent distress Constitutional Narrative: Oriented HEENT normocephalic and head/scalp atraumatic Eyes Eyes Narrative: EOM grossly intact, anicteric Neck supple Resp normal respiratory effort Resp Narrative: Difficult to auscultate secondary to body habitus, diminished at the bases, no wheezes or rhonci appreciated Cardio regular rate and regular rhythm GI soft to palpation, non-tender and non-distended Extremity Extremity Narrative: No edema appreciated Neuro moves all extremities Neuro Narrative: No overt focal deficits appreciated Psych Psych Narrative: Cooperative Weight / BMI Weight Weight: 185 kg Body Mass Index (BMI) 58.1 ABG / Lab / Microbiology Data Result Diagrams: 05/12/22 04:42 05/12/22 04:42 Laboratory: Laboratory Results - last 24 hr 05/10/22 06:52: Magnesium 2.3 05/11/22 15:25: Sodium 138, Potassium 3.9, Chloride 101, Carbon Dioxide 29.0, Anion Gap 8, BUN 23 H, Creatinine 1.16, Estim Creat Clear Calc 82.95, Est GFR (MDRD) Af Amer 86, Est GFR (MDRD) Non-Af 71, BUN/Creatinine Ratio 19.8, Glucose 139 H, Calcium 9.3 05/12/22 04:42: WBC 19.1 H, RBC 5.12, Hgb 15.3, Hct 48.0, MCV 93.8, MCH 29.9, MCHC 31.9 L, RDW Std Deviation 47.3 H, RDW Coeff of Angelo 13.8, Plt Count 285, MPV 9.9, Immature Gran % (Auto) 1.600 H, Neut % (Auto) 86.9 H, Lymph % (Auto) 6.1 L, [place] % (Auto) 5.1, Eos % (Auto) 0.0, Baso % (Auto) 0.3, Absolute Neuts (auto) 16.6 H, Absolute Lymphs (auto) 1.17, Nucleated RBC % 0 05/12/22 04:42: Sodium 138, Potassium 4.1, Chloride 101, Carbon Dioxide 31.0, Anion Gap 6, BUN 24 H, Creatinine 0.97, Estim Creat Clear Calc 99.19, Est GFR (MDRD) Af Amer 106, Est GFR (MDRD) Non-Af 88, BUN/Creatinine Ratio 24.8 H, Glucose 124 H, Calcium 8.8 Microbiology: Microbiology 05/09/22 20:00 Blood Culture (Wb) - Anticubital Right Blood Culture - Preliminary No growth in 48 hours. 05/09/22 20:00 Blood Culture (Wb) - Anticubital Left Blood Culture - Preliminary No growth in 48 hours. 05/10/22 00:21 Interface Orders Respiratory Panel (PCR) - Final 05/10/22 00:05 Urine, Clean Catch Legionella Antigen - Final 05/10/22 00:05 Urine, Clean Catch Streptococcus pneumoniae Antigen (M - Final 05/09/22 18:20 Nasal Secretion SARS-CoV-2 & FLU Antigen (Rapid) - Final D/C Instructions Discharge Diet: No restrictions Meaningful Use Info Meaningful Use Diagnoses (Choose all that apply): None applicable Discharge Plan Admission Admit Date/Time: 05/09/22 22:33 Primary Reason for Your Visit: Shortness of breath Attending Provider: Clair Riggs Primary Care Provider: Care Physician,No Primary Consulting Providers: Meghan Mejía ; Herb Williamson Instructions Patient Instructions: ED Pneumonia (Adult) Additional Instructions / Restrictions: ? Recommend that you discuss an outpatient sleep study with your primary care physician upon discharge ?You were diagnosed with pneumonia and was started on antibiotics and steroids as well as breathing treatments ? You will be discharged on Augmentin 875 mg twice daily starting this evening and continuing for 4 more days as well as azithromycin 500 mg for 1 more dose this evening ?Additionally you will be discharged on prednisone for 4 more days tomorrow 05/13 ? 2 inhalers will be sent to your preferred pharmacy on file to take over the next 10 days ? You were started on several blood pressure medications amlodipine, losartan, hydrochlorothiazide. These have been sent to your preferred pharmacy on file. Continue your home metoprolol -Please call your primary care provider's office upon discharge to schedule a hospital follow up within 1 week. If you do not have a primary care provider a list of local providers can be provided prior to discharge -For any concerning signs or symptoms please call 911 or proceed to the nearest emergency department Discharge Orders/Prescriptions Prescriptions: New lisinopril 20 mg Tablet 20 mg PO DAILY 30 Days Qty: 30 1RF prednisone 20 mg Tablet 40 mg PO BREAKFAST 4 Days Qty: 8 0RF amlodipine 10 mg Tablet 10 mg PO DAILY 30 Days Qty: 30 1RF hydrochlorothiazide 12.5 mg Capsule 12.5 mg PO DAILY 30 Days Qty: 30 1RF amoxicillin-pot clavulanate 875-125 mg tablet 1 tab PO BID Qty: 9 0RF Rx Instructions: Start first dose 05/12 at night azithromycin 500 mg tablet 500 mg PO DAILY 1 Days Qty: 1 0RF Rx Instructions: Take the night of 05/12 to finish your course albuterol sulfate 90 mcg/actuation HFA aerosol inhaler 2 inh inhalation Q6H 10 Days Qty: 8.5 0RF ipratropium bromide 17 mcg/actuation HFA aerosol inhaler 2 puff inhalation Q6H 10 Days Qty: 12.9 0RF Rx Instructions: administer with spacer Continued metoprolol tartrate [Lopressor] 50 mg tablet 50 mg PO DAILY Qty: 30 2RF Discontinued sulfamethoxazole-trimethoprim 1 TABLET tablet 1 tab PO BID Qty: 20 0RF naproxen 500 MG tablet 500 mg PO BID PRN Qty: 20 0RF Referrals / Follow Up: Care Physician,No Primary [Primary Care Provider] - Disposition Disposition (needs filled in before D/C Order can be placed): Home, Self Care Charges/Coding Visit Charges Inpatient E&M: 81856 Disch Hosp
--- NOTE | 2022-05-12 11:22 | CASEMGMT ---
Spoke with pt nurse, pt did not qualify for home oxygen.
--- NOTE | 2022-05-12 14:43 | PHA.DC.MC ---
Pharmacy Service has performed discharge medication reconciliation and counseling for this patient. 1. ALBUTEROL MDI 2INHALATIONS Q6H 2. AMLODIPINE 10MG PO DAILY 3. AUGMENTIN 875 1T PO BID X 4.5 DAYS 4. AZITHROMYCIN 500MG PO DAILY X 1 DAY 5. HYDROCHLOROTHIAZIDE 12.5MG PO DAILY 6. IPRATROPIUM 2INHALATIONS Q2H 7. LISINOPRIL 20MG PO DAILY 8. PREDNISONE 40MG PO BREAKFAST X 4 DAYS The patient's discharge medication list was reviewed for discrepancies and discrepancies were resolved. Home Medications metoprolol tartrate 50 mg tablet (Lopressor) 50 mg PO DAILY #30 tabs 09/12/21 albuterol sulfate 90 mcg/actuation aerosol inhaler 2 inh inhalation Q6H 10 days #8.5 grams 05/12/22 amlodipine 10 mg tablet 10 mg PO DAILY 30 days #30 tabs 05/12/22 amoxicillin 875 mg-potassium clavulanate 125 mg tablet 1 tab PO BID #9 tabs 05/12/22 azithromycin 500 mg tablet 500 mg PO DAILY 1 day #1 TAB 05/12/22 hydrochlorothiazide 12.5 mg capsule 12.5 mg PO DAILY 30 days #30 caps 05/12/22 ipratropium bromide 17 mcg/actuation HFA aerosol inhaler 2 puff inhalation Q6H 10 days #12.9 grams 05/12/22 lisinopril 20 mg tablet 20 mg PO DAILY 30 days #30 tabs 05/12/22 prednisone 20 mg tablet 40 mg PO BREAKFAST 4 days #8 tabs 05/12/22 The patient was counseled on the following discharge medications and changes in medications for homegoing were reviewed. The Reason for Use, instructions for use, and potential side effects were reviewed for all new medications. The patient's questions regarding all of their medications were answered. The patient was able to verbally demonstrate an understanding of their discharge medications. Patient counseled by pharmacy service associateStarr.
== END 2022-05-12 11:20 | disposition home or self-care (01) | DRG 139 ==
LOC: ED 17:59 → MS3 22:07
PROVIDERS: Admitting Provider Family Medicine; Emergency Provider Emergency Medicine; Visit Provider Internal Medicine
DX: J18.9 Pneumonia, unspecified organism (principal); J96.01 Acute respiratory failure with hypoxia; J44.0 Chronic obstructive pulmonary disease with (acute) lower respiratory infection; J44.1 Chronic obstructive pulmonary disease with (acute) exacerbation; Z68.43 Body mass index [BMI] 50.0-59.9, adult; B37.0 Candidal stomatitis; E66.01 Morbid (severe) obesity due to excess calories; G47.33 Obstructive sleep apnea (adult) (pediatric); I10 Essential (primary) hypertension; J45.909 Unspecified asthma, uncomplicated; I16.0 Hypertensive urgency; F17.210 Nicotine dependence, cigarettes, uncomplicated
CPT/HCPCS: 36415; 71045; 80048; 80053; 83605; 83735; 83880; 84484; 85025; 87040; 87428; 87449; 87633; 87635; 93005; 94640; 94762; 97802; 99251; 99285; 99406; J7030; J7050; A4216; G0463; U0003; U0005

== ENCOUNTER 2022-09-13 19:01 | Emergency (ER) | payer MEDICAID, SELFPAY ==
[2022-09-13] VITALS (11 sets, daily range): BP systolic 152–199; BP diastolic 90–123; PULSE 79–118; RESP 16–22; TEMP 36.1; O2SAT 92–96; BMI 52.2
--- NOTE | 2022-09-13 19:08 | EKG12_ITS ---
Test Reason : CP Blood Pressure : / mmHG Vent. Rate : 113 BPM Atrial Rate : 113 BPM P-R Int : 134 ms QRS Dur : 128 ms QT Int : 370 ms P-R-T Axes : 049 047 056 degrees QTc Int : 507 ms Sinus tachycardia Non-specific intra-ventricular conduction block Abnormal ECG Confirmed by PURVI MCGILL, SHWETHA ([id number]), technical editor DEMETRIO TREVINO ([id number]) on 09/14/2022 12:42:02 PM Referred By: YVONNE Confirmed By:SHWETHA LOJA MD
[2022-09-13 19:21] LABS: Absolute Lymphocyte Count 1.77 X10^3/uL (0.83-4.51); Absolute Neutrophil Count 2.7 X10^3/uL (2.0-7.7); Basophil# 0.02 X10^3/uL; Basophil% 0.4 % (0-1); Eosinophil# 0.05 X10^3/uL; Hematocrit 49.3 % (40-54); Hemoglobin 16.1 g/dL (13.0-16.5); Lymphocyte # 1.77 X10^3/ul (0.83-4.51); Lymphocyte % 34.2 % (19-41); Mean Corp Hgb Conc 32.7 g/dL (32-36); Mean Corpuscular Hgb 30.3 pg (27.0-32.0); Mean Corpuscular Volume 92.7 fL (80-94); Mean Platelet Vol. 9.8 fl (6.2-12.0); Monocyte# 0.65 X10^3/uL; Monocyte% 12.5 % (0-10); NRBC Flagged by Analyzer 0 % (0-5); Neutrophil # 2.68 X10^3/uL (2.7-7.7); Neutrophil % 51.7 % (47-70); Platelet Count 159 K/mm3 (150-450); RBC Distribution Width CV 13.4 % (11.6-14.6); RBC Distribution Width SD 45.7 fl (35.1-43.9); Red Blood Count 5.32 M/mm3 (4.6-6.2); White Blood Count 5.2 K/mm3 (4.4-11.0)
--- NOTE | 2022-09-13 19:25 | RAD_ITS ---
STUDY: X-RAY CHEST REASON FOR EXAM: Male, 47 years old. CHEST PAIN chest pain TECHNIQUE: XR Chest 1 View COMPARISON: 05/09/2022 FINDINGS: There is no demonstrated pleural abnormality. There is bilateral infiltrate. There is moderate cardiac enlargement. Normal mediastinum and kip. Normal visualized pulmonary arteries. Normal visualized aortic arch and descending thoracic aorta. Normal visualized thoracic spine. Normal visualized ribs, clavicles, and shoulders. There is no demonstrated abnormality of the visualized soft tissue structures of the upper abdomen. RAD/Chest 1 View (Portable) IMPRESSION: Bilateral pneumonia. Enlarged heart Electronically Signed: Anshul Gonzales MD at 19:53 EDT ,
[2022-09-13 19:36] LABS: D-Dimer Quantitative (DVT/PE) 0.58 FEU/ug/m (0.27-0.49)
[2022-09-13 19:38] LABS: Anion Gap 6 (5-15); BUN 12 mg/dL (7-18); BUN/Creat Ratio 10.6 RATIO (10-20); Calcium,Total 8.1 mg/dL (8.5-10.1); Chloride 106 mmol/L (98-107); Creatinine, Serum 1.13 mg/dL (0.70-1.30); EST Glomerular Filtration Rate 73 mL/min (>60); Est Glom Filt Rate - Afr Amer 89 mL/min (>60); Estimated Creatinine Clearance 84.22 ml/min; Glucose 116 mg/dL (74-106); Potassium 3.2 mmol/L (3.5-5.1); Sodium Level 142 mmol/L (136-145); Troponin-I HS (w/2H Reflex) 57 pg/mL (3.0-78.0)
--- NOTE | 2022-09-13 19:45 | ED.VIS.CHEST ---
HPI History of Present Illness Chief Complaint: Shortness of Breath Narrative Narrative: 47-year-old male with uncontrolled hypertension presenting with chest pain and shortness of breath. He states he also has a history of COPD. He still a smoker. He reports that he is trying to quit. Patient states he was hospitalized in April and he was treated for pneumonia and ultimately started on antihypertensive medications. He was given a 30-day supply of amlodipine 10 mg, hydrochlorothiazide 12.5 mg, lisinopril 20 mg and states that he made this somehow last until July. He states he never had a chance to make a follow-up appointment because he works third shift, and because he does not have a ride. He also notes that he has difficulty making phone calls to the insurance company to figure out who is supposed to follow-up with. Patient states that the chest pain that is experiencing feels achy in the anterior portion of his chest. It does not radiate. He states that he had some cold sweats earlier but no lightheadedness or dizziness. He has not had any fever or chills. He does report that he thought he got of a cold last week. He is complaining today also of urinary frequency and dysuria. [facility] Medical History (Updated 05/20/22 @ 00:01 by Background Damagda) Bilateral pneumonia Congestive heart failure (CHF) COPD exacerbation COPD with asthma HTN (hypertension) Hypoxia Kidney stones Morbid obesity Myocardial infarct Sleep apnea Smoker Tobacco abuse disorder Home Medications amlodipine 10 mg tablet 10 mg PO DAILY 30 days #30 tabs 05/12/22 [Rx Last Taken Unknown] hydrochlorothiazide 12.5 mg capsule 12.5 mg PO DAILY 30 days #30 caps 05/12/22 [Rx Last Taken Unknown] lisinopril 20 mg tablet 20 mg PO DAILY 30 days #30 tabs 05/12/22 [Rx Last Taken Unknown] amlodipine 10 mg tablet 10 mg PO DAILY #30 tabs 09/13/22 [Rx Last Taken Unknown] aspirin 500 mg tablet 1,000 mg PO DAILY 09/13/22 [History Last Taken Unknown] hydrochlorothiazide 12.5 mg tablet 12.5 mg PO DAILY #30 tabs 09/13/22 [Rx Last Taken Unknown] lisinopril 20 mg tablet 20 mg PO DAILY #30 tabs 09/13/22 [Rx Last Taken Unknown] levofloxacin 500 mg tablet 500 mg PO DAILY #7 tabs 09/14/22 [Rx Last Taken Unknown] Allergy/AdvReac Type Severity Reaction Status Date / Time No Known Allergies Allergy Verified 09/13/22 19:01 Family History (Updated 05/09/22 @ 22:[address] Meghan Mejía MD) Father Diabetes Surgical History (Updated 05/09/22 @ 20:[address] Meghan Mejía MD) History of lithotripsy History of tonsillectomy and adenoidectomy Hx of cholecystectomy Social History (Updated 05/09/22 @ 20:[address] Meghan Mejía MD) Smoking Status: Current every day smoker tobacco type: cigarettes alcohol intake: never substance use type: does not use ROS ROS ED Constitutional Constitutional ED: Reports sweats; Denies chills or fever(s) Eyes Eyes: Denies blurry vision or change in vision ENT ENT ED: Denies rhinorrhea or sore throat Cardiovascular Cardiovascular: Reports as per HPI Respiratory/Chest Respiratory/Chest: Reports dyspnea and dyspnea on exertion Gastrointestinal Gastrointestinal: Denies abdominal pain, nausea or vomiting Genitourinary Genitourinary ED: Reports dysuria and urinary frequency Musculoskeletal Musculoskeletal: Denies arthralgias or back pain Integumentary Reports abscess Neurologic Neurologic: Reports headache(s); Denies paresthesias or weakness Psychiatric Psychiatric: Denies anxiety or depression EXAM Physical Exam Const Vital Signs: 09/13/22 19:02 09/13/22 19:15 09/13/22 19:17 Temperature 97.0 F L Temperature Source Temporal Pulse Rate 118 H Respiratory Rate 18 Respiratory Effort Normal Respiratory Depth Normal Respiratory Pattern Normal Blood Pressure 199/123 H Blood Pressure Mean 148 Pulse Ox 96 95 Oxygen Delivery Method Room Air Room Air Room Air 09/13/22 19:56 09/13/22 20:00 09/13/22 21:00 Temperature Temperature Source Pulse Rate 102 H 94 89 Respiratory Rate 22 H 18 16 Respiratory Effort Respiratory Depth Respiratory Pattern Blood Pressure 185/107 H 152/90 H 188/115 H Blood Pressure Mean 133 110 139 Pulse Ox 94 92 92 Oxygen Delivery Method Room Air Room Air Room Air 09/13/22 22:00 09/13/22 22:19 09/13/22 22:44 Temperature Temperature Source Pulse Rate 90 79 Respiratory Rate 16 18 Respiratory Effort Respiratory Depth Respiratory Pattern Blood Pressure 177/112 H 158/106 H 163/105 H Blood Pressure Mean 133 123 124 Pulse Ox 94 93 94 Oxygen Delivery Method Room Air Room Air Room Air 09/13/22 23:26 Temperature Temperature Source Pulse Rate 81 Respiratory Rate 20 H Respiratory Effort Respiratory Depth Respiratory Pattern Blood Pressure 166/107 H Blood Pressure Mean 126 Pulse Ox 95 Oxygen Delivery Method Room Air Positive well nourished and obese General Appearance ED: NAD; Negative for pallor Nutritional Appearance: obese HEENT Reports moist mucous membranes normocephalic and atraumatic Eyes PERRL and EOMs intact bilaterally Chest Wall inspection of chest normal and palpation of chest normal Resp normal respiratory effort and clear to auscultation bilaterally Cardio regular rhythm Rate: tachycardic Extremity normal to inspection Neuro oriented x3 and CN's II-XII intact bilaterally Sensorium / Orientation: awake and alert Motor Exam: strength 5/5 throughout Psych mental status grossly normal Skin no rashes or lesions noted General Skin Exam: Negative for jaundice or pallor Heart Score History: Slightly/Non-Suspicious ECG: Normal Age: >45 - <65 years Risk Factors: >/= 3 Risk Factors or History of CAD Troponin: </= Normal Limit Score: 3 MDM MDM MDM Narrative Medical decision making narrative: Patient presenting with some chest pain and elevated blood pressures. He does have history of hypertension and medical noncompliance. He is also obese and a smoker. HEART score of 3. Differential includes but is not limited to ACS, PE, aortic dissection, pneumonia, , pneumothorax, muscle strain, costochondritis. EKG was obtained and on my interpretation this is sinus tachycardia with a ventricular rate of 113 bpm. Blood pressure is very elevated and the patient states that he has not had medication since July but his last prescription was in April and had a 30-day supply. CBC was obtained to assess white blood cell count, hemoglobin, platelet, differential. BMP to assess kidney function, renal function, electrolytes, glucose and anion gap. High-sensitivity troponin assess for cardiac source of chest pain. D-dimer is obtained as patient is tachycardic and I cannot PERC him out. Urinalysis was obtained because the patient states having urinary symptoms. Patient given labetalol 20 mg and blood pressure came to 152 /90 and then came back up. To 188/115. He is given a second dose of labetalol. CBC shows no leukocytosis. Hemoglobin hematocrit are stable. Platelets are normal. Renal function is normal. Electrolytes within normal limits with exception of potassium of 3.2. Initial high-sensitivity troponin came back at 57. D-dimer was elevated at 0.58. Patient had CTA of the chest which shows no dissection nor does it show a PE. His chest x-ray showed bilateral infiltrates on my interpretation. Radiologist interpretation agrees. CTA shows mild perihilar and upper lobe infiltrates. Patient's pulse ox is 95-[address] in [address] When he ambulates that the only goes down to 92. He is feeling improved after his blood pressures responded. His delta troponin came back at 64. Urinalysis came back negative for infection. Patient states he wants to go home and he states that he can make a follow-up appointment with somebody. I gave him follow-up with Stacie Gaytan. I did put him on Levaquin with first dose in the ER. He was also given 30 days worth of blood pressure medicines. Return precautions were discussed. Impression: 1. Hypertension 2. Medical noncompliance 3. Chest pain 4. Bilateral pneumonia 5. Dysuria Lab Data Labs: Laboratory Results - last 24 hr 09/13/22 09/13/22 09/13/22 19:15 19:15 19:15 WBC 5.2 RBC 5.32 Hgb 16.1 Hct 49.3 MCV 92.7 MCH 30.3 MCHC 32.7 RDW Std Deviation 45.7 H RDW Coeff of Angelo 13.4 Plt Count 159 MPV 9.8 Immature Gran % (Auto) 0.200 Neut % (Auto) 51.7 Lymph % (Auto) 34.2 [place] % (Auto) 12.5 H Eos % (Auto) 1.0 Baso % (Auto) 0.4 Absolute Neuts (auto) 2.7 Absolute Lymphs (auto) 1.77 Nucleated RBC % 0 D-Dimer Quant (PE/DVT) 0.58 H* Sodium 142 Potassium 3.2 L Chloride 106 Carbon Dioxide 30.0 Anion Gap 6 BUN 12 Creatinine 1.13 Estim Creat Clear Calc 84.22 Est GFR (MDRD) Af Amer 89 Est GFR (MDRD) Non-Af 73 BUN/Creatinine Ratio 10.6 Glucose 116 H Calcium 8.1 L Troponin I High Sens 57 Urine Color Urine Clarity Urine pH Ur Specific [place] Urine Protein Urine Glucose (UA) Urine Ketones Urine Occult Blood Urine Nitrite Urine Bilirubin Urine Urobilinogen Ur Leukocyte Esterase Urine RBC Urine WBC Ur Squamous Epith Cells Calcium Oxalate Crystal Urine Bacteria Urine Mucus 09/13/22 09/13/22 20:15 21:20 WBC RBC Hgb Hct MCV MCH MCHC RDW Std Deviation RDW Coeff of Angelo Plt Count MPV Immature Gran % (Auto) Neut % (Auto) Lymph % (Auto) [place] % (Auto) Eos % (Auto) Baso % (Auto) Absolute Neuts (auto) Absolute Lymphs (auto) Nucleated RBC % D-Dimer Quant (PE/DVT) Sodium Potassium Chloride Carbon Dioxide Anion Gap BUN Creatinine Estim Creat Clear Calc Est GFR (MDRD) Af Amer Est GFR (MDRD) Non-Af BUN/Creatinine Ratio Glucose Calcium Troponin I High Sens 64 Urine Color Yellow Urine Clarity Sl. Cloudy Urine pH 5.0 Ur Specific [place] 1.020 Urine Protein 100 H Urine Glucose (UA) Normal Urine Ketones 5 H Urine Occult Blood 10 H Urine Nitrite Negative Urine Bilirubin Negative Urine Urobilinogen Normal Ur Leukocyte Esterase Negative Urine RBC 5-10 SEEN Urine WBC 0 SEEN Ur Squamous Epith Cells 0-5 SEEN Calcium Oxalate Crystal RARE Urine Bacteria 0 SEEN Urine Mucus 0 SEEN Radiography Diagnostic Testing: Clinical Impression(s) from Imaging Studies Chest X-Ray 09/13/22 19:25 IMPRESSION: Bilateral pneumonia. Enlarged heart Electronically Signed: Anshul Gonzales MD at 19:53 EDT , Chest CTA 09/13/22 19:46 IMPRESSION: (NOT LISTED IN ORDER OF SIGNIFICANCE) No demonstrated pulmonary embolism or arterial dissection. Mild perihilar and upper lobe infiltrate suggesting pneumonia. Electronically Signed: Anshul Gonzales MD at 21:13 EDT , Discharge Plan Triage Chief Complaint: Shortness of Breath ED Provider: Nirmal Zurita Dx/Rx/DC Orders Instructions: ED Chest Pain, Noncardiac, ED Dyspnea, ED Hypertension, Established, ED Pneumonia (Adult) Prescriptions: New amlodipine 10 mg tablet 10 mg PO DAILY Qty: 30 0RF hydrochlorothiazide 12.5 mg tablet 12.5 mg PO DAILY Qty: 30 0RF lisinopril 20 mg tablet 20 mg PO DAILY Qty: 30 0RF levofloxacin 500 mg tablet 500 mg PO DAILY Qty: 7 0RF No Action lisinopril 20 mg Tablet 20 mg PO DAILY 30 Days Qty: 30 1RF amlodipine 10 mg Tablet 10 mg PO DAILY 30 Days Qty: 30 1RF hydrochlorothiazide 12.5 mg Capsule 12.5 mg PO DAILY 30 Days Qty: 30 1RF aspirin 500 mg Tablet 1,000 mg PO DAILY Rx Instructions: while awake Primary Care Provider: Care Physician,No Primary Referrals: [facility] [Outside] - As soon as possible Care Physician,No Primary [Primary Care Provider] - Disposition Disposition: Home, Self Care
--- NOTE | 2022-09-13 19:46 | CT_ITS ---
STUDY: CTA CHEST REASON FOR EXAM: Male, 47 years old. elevated d-dimer, uncontrolled htn, sob int and cp, lower back pain, copd, smokePAIN PE SOB TECHNIQUE: The examination was performed with the intravenous administration of 100 cc of IV Isovue 300 contrast material. Post-processing of the angiographic images was performed, with axial imaging and 3D reconstruction. MIPS images were obtained. Individualized dose optimization techniques were used for this CT. COMPARISON: None. FINDINGS: Normal enhancement of the main pulmonary artery and right and left pulmonary arteries. Normal enhancement of the bilateral peripheral pulmonary arteries. There is no demonstrated pulmonary embolism. Normal thoracic aorta and visualized great vessels. There is no demonstrated aortic dissection. Normal heart and pericardium with no evidence for calcifications of the coronary arteries. Normal mediastinum. Mild perihilar and upper lobe infiltrate suggesting pneumonia. Normal visualized trachea and bronchi. The lungs are well expanded. Normal pulmonary parenchyma. Normal pleura. Normal chest wall structures. There are degenerative changes of thoracic spine. Normal visualized upper abdomen. CT/CTA Chest W/WO Contrast IMPRESSION: (NOT LISTED IN ORDER OF SIGNIFICANCE) No demonstrated pulmonary embolism or arterial dissection. Mild perihilar and upper lobe infiltrate suggesting pneumonia. Electronically Signed: Anshul Gonzales MD at 21:13 EDT ,
[2022-09-13] MEDS: Labetalol (Prefilled) 20 MG/4 ML IV ×2 (19:54→22:10)
[2022-09-13 21:12] LABS: Bacteria 0 SEEN /hpf (None Seen); Mucous, Urine 0 SEEN /hpf (<or=2+); White Blood Cells 0 SEEN /hpf (0-5)
[2022-09-13 21:17] LABS: Color, Urine Yellow (Yellow); Glucose, Dipstick Normal (Normal); Ketone-Dipstick 5 mg/dl (Negative); Leukocyte Esterase-Dipstick Negative /ul (Negative); Nitrite-Dipstick Negative (Negative); Occult Blood-Urine 10 /ul (Negative); Protein-Dipstick 100 mg/dl (Negative); Urine Bilirubin Dipstick Negative (Negative); Urine Clarity Sl. Cloudy (Clear); Urine Urobilinogen Normal (Normal)
[2022-09-13 21:17] LABS: Reflex Troponin-HS? (from REC) Y
[2022-09-13 21:28] LABS: Calcium Oxalate Crystals Ur RARE /hpf (<or=2+); Red Blood Cells-Urine 5-10 SEEN /hpf (0-5); Squamous Epithelial Cells - UA 0-5 SEEN /hpf (0-5)
[2022-09-13 21:51] LABS: Troponin-I HS 64 pg/mL (3.0-78.0)
[2022-09-14] MEDS: levoFLOXacin 750 MG Tablet PO (00:02)
[2022-09-14 00:12] VITALS: BP 162/112; PULSE 86; RESP 16; TEMP 36.9
== END 2022-09-14 00:14 | disposition home or self-care (01) ==
PROVIDERS: Emergency Provider Student in an Organized Health Care Education/Training Program; Visit Provider Student in an Organized Health Care Education/Training Program
DX: J18.9 Pneumonia, unspecified organism (principal); I11.0 Hypertensive heart disease with heart failure; I50.9 Heart failure, unspecified; Z91.199 Patient's noncompliance with other medical treatment and regimen due to unspecified reason; R30.0 Dysuria; F17.210 Nicotine dependence, cigarettes, uncomplicated; R07.9 Chest pain, unspecified; Z79.82 Long term (current) use of aspirin
CPT/HCPCS: 71045; 71275; 80048; 81001; 84484; 85025; 85379; 93005; 96374; 96376; 99285; Q9967; A4216

== ENCOUNTER 2023-01-31 18:59 | Emergency (ER) | payer OTHER, SELFPAY ==
[2023-01-31 19:03] VITALS: BP 213/123; PULSE 111; RESP 20; TEMP 36.6; O2SAT 96; BMI 55.4
--- NOTE | 2023-01-31 19:07 | EDS_ITS ---
HPI History of Present Illness Chief Complaint: General Illness [facility] Medical History (Updated 01/31/23 @ 23:[address] Alexy Randle, DO) Bilateral pneumonia Congestive heart failure (CHF) COPD exacerbation COPD with asthma HTN (hypertension) Hypoxia Kidney stones Morbid obesity Myocardial infarct Sleep apnea Smoker Tobacco abuse disorder Home Medications albuterol sulfate 90 mcg/actuation aerosol inhaler 2 inh inhalation Q4H PRN shortness of breath or wheezing 01/31/23 [History Last Taken Unknown] lisinopril 20 mg tablet 20 mg PO DAILY 30 days #30 tabs 01/31/23 [Rx Last Taken Unknown] Allergy/AdvReac Type Severity Reaction Status Date / Time No Known Allergies Allergy Verified 01/31/23 19:03 Family History (Updated 05/09/22 @ 22:[address] Meghan Mejía MD) Father Diabetes Surgical History (Updated 05/09/22 @ 20:[address] Meghan Mejía MD) History of lithotripsy History of tonsillectomy and adenoidectomy Hx of cholecystectomy Social History (Updated 05/09/22 @ 20:[address] Meghan Mejía MD) Smoking Status: Current every day smoker tobacco type: cigarettes alcohol intake: never substance use type: does not use EXAM Physical Exam Const Vital Signs: 01/31/23 19:03 01/31/23 19:41 01/31/23 19:45 Temperature 98 F Temperature Source Temporal Pulse Rate 111 H 103 H Respiratory Rate 20 H 14 Respiratory Pattern Normal Blood Pressure 213/123 H 228/134 H Blood Pressure Mean 153 165 Pulse Ox 96 94 Oxygen Delivery Method Room Air Oxygen Flow Rate (L/min) 01/31/23 21:00 01/31/23 21:16 01/31/23 21:31 Temperature Temperature Source Pulse Rate 102 H 94 94 Respiratory Rate 16 Respiratory Pattern Blood Pressure 230/141 H 240/150 H 226/145 H Blood Pressure Mean 170 Pulse Ox Oxygen Delivery Method Oxygen Flow Rate (L/min) 01/31/23 23:15 Temperature Temperature Source Pulse Rate 85 Respiratory Rate 18 Respiratory Pattern Blood Pressure 192/116 H Blood Pressure Mean 141 Pulse Ox 96 Oxygen Delivery Method Nasal Cannula Oxygen Flow Rate (L/min) 2 MDM MDM MDM Narrative Medical decision making narrative: HISTORY OF PRESENT ILLNESS: 47-year-old male here with a chief complaint of abdominal pain and shortness of breath. The patient notes last 2 days he had worsening dyspnea on exertion. Notes scrotal and leg swelling. States he supposed be on blood pressure medicine but has not been taking it. The patient denies recent surgery in the last 4 weeks or immobilization in the last 3 days, denies previous diagnosis of DVT or PE, hemoptysis, unilateral leg swelling or malignancy with treatment the last 6 months. No estrogen use noted. He denies any cough. Does note he felt hot prior to arrival. Notes his belly is been hurting him he has been having diarrhea. He denies any melena. He denies any recent antibiotic use or hospitalization. No recent travel. Denies any history of abdominal surgery. REVIEW OF SYSTEMS: Pertinent positives: Shortness of breath, abdominal pain, diarrhea, leg swelling, scrotal swelling Pertinent negatives: Unilateral leg swelling, hemoptysis, estrogen use PHYSICAL EXAM: Nursing triage notes reviewed, Vital signs reviewed Constitutional: please see mdm HENT: MMM Eyes: Pupils equal round and reactive to light, Extraocular muscles intact Neck: No stridor, no JVD, full neck ROM Lungs: Exam limited secondary to body habitus, no obvious rales or wheezing. No increased work of breathing, no conversational dyspnea. Heart: Regular rate and rhythm, No murmurs, No rubs and No gallops, 2+ distal pulses (radial, femoral, posterior tibial) in all extremities Abdomen: Soft, there is no tenderness, rigidity, rebound or guarding, no obvious peritoneal signs, no palpable pulsatile abdominal masses, no auscultated abdominal bruit : No CVAT, scrotum is edematous bilaterally, nontender, positive cremasteric reflex Extremities: 2+ pitting edema bilateral lower extremities Neuro: No focal neurological deficits, cranial nerves II through XII intact, 5/5 strength in all extremities. Intact sensation to light touch in all extremities, 2+ reflexes bilateral patella tendons. Normal gait. No ataxia. Skin: No rash or lesions noted MEDICAL DECISION MAKING: Chief Complaint: Shortness of breath, bilateral lower extremity edema, External records reviewed: Last ED visit in August 2022 for pneumonia. Echocardiogram 2012 shows ejection fraction 75% Factors affecting care: Hypertension Social determinants of health: History of tobacco abuse History obtained from others: Patient's significant other Consults: none ALL IMAGES (IF OBTAINED) HAVE BEEN PERSONALLY REVIEWED AND INTERPRETED BY MYSELF. MDM Narrative: The patient was initially tachycardic, hypertensive, tachypneic. Exam most consistent with CHF exacerbation given shortness of breath, hypertension, bila teral lower extremity edema. I considered the following differential diagnosis: Pneumonia, viral infection, PE, CHF exacerbation, anemia, arrhythmia, myocardial ischemia, asthma or COPD exacerbation Patient no focal lung findings to suggest a COPD exacerbation. Chest x-ray was read person by myself showed no evidence of obvious pneumonia. There was no pulmonary edema, BNP was within normal limits to suggest CHF. EKG was nonischemic and not arrhythmia genic. No significant anemia noted troponin was negative x2. COVID and flu test was also negative. Patient remained persistently hypertensive despite oral medicines. He was into the IV labetalol with improvement in blood pressure. Patient A1c was reassuring. No clear life- limiting etiology be ascertained. Suspect the patient symptoms are secondary to uncontrolled hypertension. The patient was not hypoxic or on oxygen on my final evaluation. Saturating well on room air. The patient and/or family, caregivers express understanding. The patient and/or family, caregivers agrees with the plan. Shared decision making: I will have a discussion with the patient and or visitors regarding risk/benefits of further testing or admission. They will be made aware of of the risk/benefits inherent in this decision they will be given the opportunity to voice understanding. Total critical care time today provided was at least 0 minutes. This excludes separately billable procedures. Critical care time (if documented) is secondary to the patient having high probability of clinically significant/life threatening deterioration in the patient's condition which required my urgent intervention. Lab Data Attestation: I reviewed the patient's lab results. Lab results narrative: EKG with normal sinus rhythm, normal axis, prolonged QT and, no STEMI CBC with leukocytosis, no anemia, no thrombocytopenia BMP with mild hypokalemia, no anion gap suggest endorgan hypoperfusion, no acute kidney injury LFTs show no evidence of hepatobiliary pathology. Troponin is negative, no evidence of myocardial ischemia x2 Lipase is wnl indicating no pancreatic inflammation. Labs: Laboratory Results - last 24 hr 01/31/23 01/31/23 01/31/23 19:35 20:55 21:35 WBC 11.3 H RBC 4.80 Hgb 14.3 Hct 45.8 MCV 95.4 H MCH 29.8 MCHC 31.2 L RDW Std Deviation 49.0 H RDW Coeff of Angelo 14.0 Plt Count 203 MPV 10.0 Immature Gran % (Auto) 0.600 Neut % (Auto) 78.7 H Lymph % (Auto) 10.9 L [place] % (Auto) 8.6 Eos % (Auto) 0.7 Baso % (Auto) 0.5 Absolute Neuts (auto) 8.9 H Absolute Lymphs (auto) 1.24 Nucleated RBC % 0 Sodium 141 Potassium 3.2 L Chloride 106 Carbon Dioxide 29.0 Anion Gap 6 BUN 15 Creatinine 1.02 Estim Creat Clear Calc 93.30 Est GFR (MDRD) Af Amer 100 Est GFR (MDRD) Non-Af 82 BUN/Creatinine Ratio 14.7 Glucose 95 Hemoglobin A1c 5.3 Calcium 8.1 L Total Bilirubin 0.70 Direct Bilirubin 0.18 AST 14 L ALT 17 Alkaline Phosphatase 73 Troponin I High Sens 43 47 B-Natriuretic Peptide 99.8 Total Protein 6.2 L Albumin 3.2 Globulin 3.0 Lipase 30 Radiography Diagnostic Testing: Clinical Impression(s) from Imaging Studies Chest X-Ray 01/31/23 19:35 IMPRESSION: No radiographic evidence of acute cardiopulmonary disease. Electronically Signed: Cari Ku MD at 19:47 EDT Reading Location ID and State: [id number] / Tel , Service support , Discharge Plan Triage Chief Complaint: General Illness ED Provider: Alexy Randle Dx/Rx/DC Orders Clinical Impression: Uncontrolled hypertension Instructions: Hypertension Dc Prescriptions: New lisinopril 20 mg tablet 20 mg PO DAILY 30 Days Qty: 30 0RF No Action albuterol sulfate 90 mcg/actuation HFA aerosol inhaler 2 inh INHALATION Q4H PRN (Reason: shortness of breath or wheezing) Patient Comments: Inhale 2 puffs by mouth every 6 hours for 10 days. Primary Care Provider: Care Physician,No Primary Referrals: Ravi Bell MD [Med Staff - [employer]] - Activity Restrictions/Additional Instructions: Thank you for trusting us with your care today! Please take Tylenol (2 pills, 650 mg), ibuprofen (2 pills, 400 mg) every 6 hours as needed for pain and fever control. Please call your primary care physician for outpatient blood pressure titration. Please return to the emergency department if your symptoms change or worsen. Please follow with your primary care physician for further outpatient evaluation and management. Disposition Disposition: Home, Self Care
--- NOTE | 2023-01-31 19:19 | EKG12_ITS ---
Test Reason : DYSRYTHMIA Blood Pressure : / mmHG Vent. Rate : 096 BPM Atrial Rate : 096 BPM P-R Int : 170 ms QRS Dur : 126 ms QT Int : 410 ms P-R-T Axes : 053 027 075 degrees QTc Int : 517 ms Normal sinus rhythm Non-specific intra-ventricular conduction block Minimal voltage criteria for LVH, may be normal variant ( Tone product ) Abnormal ECG Confirmed by PURVI MCGILL, SHWETHA ([id number]), supervising editor trailer DEMETRIO TREVINO ([id number]) on 02/01/2023 1:34:00 PM Referred By: Confirmed By:SHWETHA LOJA MD
--- NOTE | 2023-01-31 19:35 | RAD_ITS ---
INDICATION: SOB EXAMINATION/TECHNIQUE: X-RAY - XR Chest 1 View COMPARISON: 09/13/2022. FINDINGS: LINES/DEVICES: None. LUNGS: No consolidation, edema or effusion. No pneumothorax. MEDIASTINUM AND CARDIOVASCULAR STRUCTURES: Cardiac silhouette not enlarged. Central airways and mediastinal contour are unremarkable. BONES AND SOFT TISSUES: Unremarkable. RAD/Chest 1 View (Portable) IMPRESSION: No radiographic evidence of acute cardiopulmonary disease. Electronically Signed: Cari Ku MD at 19:47 EDT Reading Location ID and State: [id number] / Tel , Service support ,
[2023-01-31 19:41] VITALS: BP 228/134; PULSE 103; RESP 14; O2SAT 94
[2023-01-31 19:53] LABS: Absolute Lymphocyte Count 1.24 X10^3/uL (0.83-4.51); Absolute Neutrophil Count 8.9 X10^3/uL (2.0-7.7); Basophil# 0.06 X10^3/uL; Basophil% 0.5 % (0-1); Eosinophil# 0.08 X10^3/uL; Eosinophils% 0.7 % (0-5); Hematocrit 45.8 % (40-54); Hemoglobin 14.3 g/dL (13.0-16.5); Lymphocyte # 1.24 X10^3/ul (0.83-4.51); Lymphocyte % 10.9 % (19-41); Mean Corp Hgb Conc 31.2 g/dL (32-36); Mean Corpuscular Hgb 29.8 pg (27.0-32.0); Mean Corpuscular Volume 95.4 fL (80-94); Monocyte# 0.97 X10^3/uL; Monocyte% 8.6 % (0-10); NRBC Flagged by Analyzer 0 % (0-5); Neutrophil # 8.92 X10^3/uL (2.7-7.7); Neutrophil % 78.7 % (47-70); Platelet Count 203 K/mm3 (150-450); White Blood Count 11.3 K/mm3 (4.4-11.0)
[2023-01-31 20:12] LABS: AST(SGOT) 14 U/L (15-37); Alanine Aminotransfer ALT/SGPT 17 U/L (16-61); Albumin, Serum 3.2 g/dL (3.2-5.0); Alkaline Phosphatase 73 U/L (45-117); Anion Gap 6 (5-15); BUN 15 mg/dL (7-18); BUN/Creat Ratio 14.7 RATIO (10-20); Bilirubin, Direct 0.18 mg/dL (0.00-0.30); Calcium,Total 8.1 mg/dL (8.5-10.1); Chloride 106 mmol/L (98-107); Creatinine, Serum 1.02 mg/dL (0.70-1.30); EST Glomerular Filtration Rate 82 mL/min (>60); Est Glom Filt Rate - Afr Amer 100 mL/min (>60); Glucose 95 mg/dL (74-106); Lipase 30 U/L (13-75); Potassium 3.2 mmol/L (3.5-5.1); Protein, Total 6.2 g/dL (6.4-8.2); Sodium Level 141 mmol/L (136-145); Troponin-I HS 43 pg/mL (3.0-78.0)
[2023-01-31 20:24] LABS: BNP,B-Type NATRIURETIC PEPTIDE 99.8 pg/mL (0-100)
[2023-01-31 21:00] VITALS: BP 230/141; PULSE 102; RESP 16
[2023-01-31] MEDS: amLODIPine 5 MG Tablet PO (21:04)
[2023-01-31] MEDS: hydroCHLOROthiazide 12.5mg 12.5 MG PO (21:04)
[2023-01-31] MEDS: Lisinopril 20 MG Tablet PO (21:04)
[2023-01-31 21:16] VITALS: BP 240/150; PULSE 94
[2023-01-31 21:31] VITALS: BP 226/145; PULSE 94
[2023-01-31 21:31] LABS: Hemoglobin A1c 5.3 % (3.8-5.6)
[2023-01-31] MEDS: Nitroglycerin SL (ED/IMG/CATH) 0.4 MG TABLET SL (21:31)
[2023-01-31 22:05] LABS: Troponin-I HS 47 pg/mL (3.0-78.0)
[2023-01-31] MEDS: Labetalol (Prefilled) 20 MG/4 ML IV (22:54)
[2023-01-31 23:15] VITALS: BP 192/116; PULSE 85; RESP 18; O2SAT 96
[2023-02-01 00:05] VITALS: BP 185/117; PULSE 94; RESP 21; O2SAT 95
== END 2023-02-01 00:06 | disposition home or self-care (01) ==
PROVIDERS: Emergency Provider Emergency Medicine; Visit Provider Emergency Medicine
DX: I10 Essential (primary) hypertension (principal); J44.9 Chronic obstructive pulmonary disease, unspecified; R19.7 Diarrhea, unspecified; Z87.891 Personal history of nicotine dependence; I25.2 Old myocardial infarction; Z87.442 Personal history of urinary calculi
CPT/HCPCS: 36415; 71045; 80048; 80076; 83036; 83690; 83880; 84484; 85025; 87428; 93005; 99284; A4216

== ENCOUNTER → 2023-06-14 | Outpatient (CLI) | payer OTHER, SELFPAY ==
--- NOTE | 2023-06-14 08:09 | ECHOCS_ITS ---
Version 2 Reason For Study: EDEMA Procedure This was a 2D Doppler, Color Flow transthoracic echocardiogram. The study was technically difficult. Exam performed in department. Left Ventricle Normal LV size. Severe concentric left ventricular hypertrophy. Left ventricular systolic function is normal. The estimated ejection fraction is 55 %. Stage 1 diastolic dysfunction. No regional wall motion abnormalities noted. Right Ventricle Normal RV size. Normal systolic function. Atria Normal left atrium. Normal right atrium. Mitral Valve Normal mitral valve. Tricuspid Valve Normal tricuspid valve. Aortic Valve Normal aortic valve. Pulmonic Valve Normal pulmonic valve. Great Vessels Normal aortic root. The pulmonary artery is normal size. Normal inferior vena cava. Pericardium/Pleural No pericardial effusion. Medication 22 gauge I.V. with prn adaptor inserted into right arm. Diluted definity 2ml given slow IV push to enhance endocardial definition. MMode/2D Measurements & Calculations LVIDd: 6.1 cm IVSd: 1.6 cm Ao root diam: 3.5 cm LVIDs: 4.3 cm LVPWd: 1.6 cm RVDd: 4.0 cm FS: 28.9 % LAV(MOD-bp): 54.1 ml LVAd ap2: 44.9 cm2 SV(MOD-sp2): 91.7 ml LAV(MOD-bp) Indexed: 19.6 ml/m2 LVLd ap2: 9.5 cm LAV(MOD-sp2): 46.8 ml EDV(MOD-sp2): 172.3 ml LAV(MOD-sp4): 52.9 ml EDV(sp2-el): 179.2 ml LVAs ap2: 28.6 cm2 LVLs ap2: 8.2 cm ESV(MOD-sp2): 80.5 ml ESV(sp2-el): 84.9 ml EF(MOD-sp2): 53.3 % LA A4 area: 18.0 cm2 LA dimension(2D): 3.7 cm RA A4 area: 17.3 cm2 Time Measurements MV dec time: 0.14 sec Doppler Measurements & Calculations MV E max marquis: 72.7 cm/sec Lat Peak E' Marquis: 5.1 cm/sec Med Peak E' Marquis: 5.0 cm/sec MV A max marquis: 123.7 cm/sec E/E' lat: 14.2 E/E' med: 14.4 MV E/A: 0.59 Ao V2 max: 95.9 cm/sec LV V1 max: 93.4 cm/sec PA V2 max: 100.3 cm/sec Ao max P.7 mmHg LV V1 max P.5 mmHg ECHO/Echo Complete W/ Contrast Interpretation Summary Normal LV size. Severe concentric left ventricular hypertrophy. Left ventricular systolic function is normal. The estimated ejection fraction is 55 %. Stage 1 diastolic dysfunction. Ordering Physician: Getachew Witt Referring Physician: Getachew Witt Performed By: Jocelyn Benson RDCS
== END | disposition home or self-care (01) ==
LOC: CVS 08:01
PROVIDERS: PCP Nurse Practitioner Family; Referring Provider Nurse Practitioner Family; Visit Provider Nurse Practitioner Family
DX: R60.0 Localized edema (principal)
CPT/HCPCS: 93306; Q9957; A4216; C8929

== ENCOUNTER → 2024-04-25 | Outpatient (CLI) | payer OTHER, SELFPAY ==
[2024-04-25 18:44] LABS: Absolute Lymphocyte Count 1.55 X10^3/uL (0.83-4.51); Basophil# 0.05 X10^3/uL; Basophil% 0.6 % (0-1); Eosinophil# 0.18 X10^3/uL; Eosinophils% 2.1 % (0-5); Hematocrit 46.5 % (40-54); Hemoglobin 15.3 g/dL (13.0-16.5); Lymphocyte # 1.55 X10^3/ul (0.83-4.51); Lymphocyte % 17.9 % (19-41); Mean Corp Hgb Conc 32.9 g/dL (32-36); Mean Corpuscular Hgb 30.2 pg (27.0-32.0); Mean Corpuscular Volume 91.7 fL (80-94); Mean Platelet Vol. 10.2 fl (6.2-12.0); Monocyte# 0.86 X10^3/uL; Monocyte% 9.9 % (0-10); NRBC Flagged by Analyzer 0 % (0-5); Platelet Count 221 K/mm3 (150-450); RBC Distribution Width CV 14.2 % (11.6-14.6); RBC Distribution Width SD 47.3 fl (35.1-43.9); Red Blood Count 5.07 M/mm3 (4.6-6.2); White Blood Count 8.7 K/mm3 (4.4-11.0)
[2024-04-25 18:57] LABS: ALB/GLOB Ratio 0.9 RATIO (0.9-2.4); AST(SGOT) 18 U/L (15-37); Alanine Aminotransfer ALT/SGPT 19 U/L (16-61); Albumin, Serum 3.6 g/dL (3.2-5.0); Alkaline Phosphatase 78 U/L (45-117); Anion Gap 6 (5-15); BUN 11 mg/dL (7-18); BUN/Creat Ratio 9.6 RATIO (10-20); Calcium,Total 8.9 mg/dL (8.5-10.1); Chloride 105 mmol/L (98-107); Cholesterol 173 mg/dL (200); Creatinine, Serum 1.15 mg/dL (0.70-1.30); EST Glomerular Filtration Rate 71 mL/min (>60); Est Glom Filt Rate - Afr Amer 86 mL/min (>60); Glucose 101 mg/dL (74-106); High Density Lipoprotein 34 mg/dL; Potassium 3.6 mmol/L (3.5-5.1); Protein, Total 7.6 g/dL (6.4-8.2); Sodium Level 139 mmol/L (136-145); Triglycerides 362 mg/dL; Very Low Density Lipoprotein 72 mg/dL (5-40)
[2024-04-25 19:05] LABS: Hemoglobin A1c 5.4 % (3.8-5.6)
== END | disposition home or self-care (01) ==
LOC: VSLAB 16:35
PROVIDERS: PCP Nurse Practitioner Family; Visit Provider Nurse Practitioner Family
DX: Z13.220 Encounter for screening for lipoid disorders (principal); Z13.1 Encounter for screening for diabetes mellitus; I10 Essential (primary) hypertension
CPT/HCPCS: 36415; 80053; 80061; 83036; 84443; 85025

== ENCOUNTER → 2024-08-29 | Outpatient (CLI) | payer OTHER, SELFPAY ==
[2024-08-29 17:20] LABS: Absolute Lymphocyte Count 1.37 X10^3/uL (0.83-4.51); Basophil# 0.03 X10^3/uL; Basophil% 0.4 % (0-1); Eosinophils% 2.7 % (0-5); Hematocrit 47.7 % (40-54); Hemoglobin 15.8 g/dL (13.0-16.5); Lymphocyte # 1.37 X10^3/ul (0.83-4.51); Lymphocyte % 18.7 % (19-41); Mean Corp Hgb Conc 33.1 g/dL (32-36); Mean Corpuscular Hgb 30.4 pg (27.0-32.0); Mean Corpuscular Volume 91.9 fL (80-94); Mean Platelet Vol. 10.1 fl (6.2-12.0); Monocyte# 0.72 X10^3/uL; Monocyte% 9.8 % (0-10); NRBC Flagged by Analyzer 0 % (0-5); Neutrophil # 4.99 X10^3/uL (2.7-7.7); Neutrophil % 68.1 % (47-70); Platelet Count 229 K/mm3 (150-450); RBC Distribution Width CV 13.3 % (11.6-14.6); RBC Distribution Width SD 44.7 fl (35.1-43.9); Red Blood Count 5.19 M/mm3 (4.6-6.2); White Blood Count 7.3 K/mm3 (4.4-11.0)
[2024-08-29 19:34] LABS: ALB/GLOB Ratio 1.3 RATIO (0.9-2.4); AST(SGOT) 28 U/L (<=37); Alanine Aminotransfer ALT/SGPT 15 U/L (<=46); Albumin, Serum 4.3 g/dL (3.5-5.0); Alkaline Phosphatase 74 U/L (40-129); Anion Gap 15 (5-15); BUN 18 mg/dL (4-19); BUN/Creat Ratio 16.6 RATIO (10-20); Calcium,Total 9.4 mg/dL (7.6-11.0); Carbon Dioxide 22.7 mmol/L (21.0-32.0); Chloride 102 mmol/L (98-108); Creatinine, Serum 1.06 mg/dL (0.70-1.20); EST Glomerular Filtration Rate 85 (>60); Globulin 3.2 g/dL (2.2-4.2); Glucose 96 mg/dL (70-99); Potassium 4.2 mmol/L (3.3-5.1); Protein, Total 7.5 g/dL (5.9-8.4); Sodium Level 140 mmol/L (133-145); Total Bilirubin 0.39 mg/dL (0.00-1.30)
[2024-08-29 21:33] LABS: Cholesterol 183 mg/dL (<=200); High Density Lipoprotein 30 mg/dL; Low Density Lipoprotein Calc. 87 mg/dL; Triglycerides 334 mg/dL; Very Low Density Lipoprotein 67 mg/dL (5-40); cholesterol:hdl ratio screen 6.16
== END | disposition home or self-care (01) ==
LOC: VSLAB 13:37
PROVIDERS: PCP Nurse Practitioner Family; Visit Provider Nurse Practitioner Family
DX: I10 Essential (primary) hypertension (principal); E78.5 Hyperlipidemia, unspecified
CPT/HCPCS: 36415; 80053; 80061; 84443; 85025

== ENCOUNTER → 2024-11-29 | Outpatient (CLI) | payer OTHER, SELFPAY ==
[2024-11-29 17:08] LABS: Basophil# 0.06 X10^3/uL; Basophil% 0.6 % (0-1); Eosinophils% 2.1 % (0-5); Hematocrit 44.1 % (40-54); Hemoglobin 14.9 g/dL (13.0-16.5); Lymphocyte % 14.6 % (19-41); Mean Corp Hgb Conc 33.8 g/dL (32-36); Mean Corpuscular Hgb 31.2 pg (27.0-32.0); Mean Corpuscular Volume 92.5 fL (80-94); Mean Platelet Vol. 10.4 fl (6.2-12.0); Monocyte# 0.88 X10^3/uL; Monocyte% 9.2 % (0-10); NRBC Flagged by Analyzer 0 % (0-5); Neutrophil # 7.04 X10^3/uL (2.7-7.7); Neutrophil % 73.2 % (47-70); Platelet Count 228 K/mm3 (150-450); RBC Distribution Width CV 13.1 % (11.6-14.6); RBC Distribution Width SD 44.2 fl (35.1-43.9); Red Blood Count 4.77 M/mm3 (4.6-6.2); White Blood Count 9.6 K/mm3 (4.4-11.0)
[2024-11-29 17:09] LABS: ALB/GLOB Ratio 1.4 RATIO (0.9-2.4); AST(SGOT) 29 U/L (<=37); Alanine Aminotransfer ALT/SGPT 15 U/L (<=46); Albumin, Serum 4.2 g/dL (3.5-5.0); Alkaline Phosphatase 85 U/L (40-129); Anion Gap 15 (5-15); BUN 22 mg/dL (4-19); BUN/Creat Ratio 18.9 RATIO (10-20); Calcium,Total 9.4 mg/dL (7.6-11.0); Carbon Dioxide 23.2 mmol/L (21.0-32.0); Chloride 101 mmol/L (98-108); Cholesterol 131 mg/dL (<=200); Creatinine, Serum 1.14 mg/dL (0.70-1.20); EST Glomerular Filtration Rate 78 (>60); Globulin 3.1 g/dL (2.2-4.2); Glucose 103 mg/dL (70-99); High Density Lipoprotein 25 mg/dL; Low Density Lipoprotein Calc. 10 mg/dL; Potassium 3.6 mmol/L (3.3-5.1); Protein, Total 7.2 g/dL (5.9-8.4); Sodium Level 138 mmol/L (133-145); Total Bilirubin 0.41 mg/dL (0.00-1.30); Triglycerides 478 mg/dL; Very Low Density Lipoprotein 96 mg/dL (5-40); cholesterol:hdl ratio screen 5.18
== END | disposition home or self-care (01) ==
LOC: VSLAB 13:38
PROVIDERS: PCP Nurse Practitioner Family; Visit Provider Nurse Practitioner Family
DX: I10 Essential (primary) hypertension (principal); E78.5 Hyperlipidemia, unspecified
CPT/HCPCS: 36415; 80053; 80061; 85025

== ENCOUNTER 2025-01-06 19:27 | Emergency (ER) | payer OTHER, SELFPAY ==
[2025-01-06 19:29] VITALS: BP 186/81; PULSE 92; RESP 18; TEMP 36.9; O2SAT 97
[2025-01-06 19:41] VITALS: BMI 40.7
--- NOTE | 2025-01-06 19:41 | ED.VIS.LOWEX ---
HPI History of Present Illness Chief Complaint: Lower Extremity Injury Informant: patient Narrative Prior similar symptoms: Yes PFSH PFSH Medical History Kidney stones Smoker Sleep apnea Myocardial infarct Congestive heart failure (CHF) COPD with asthma Hypoxia Bilateral pneumonia COPD exacerbation HTN (hypertension) Morbid obesity Tobacco abuse disorder Home Medications ?Medication ?Instructions ?Recorded ?Last Taken ?Type lisinopril 20 mg tablet 20 mg PO DAILY 30 days #30 tabs 01/31/23 Unknown Rx amlodipine 10 mg tablet 10 mg PO DAILY 01/06/25 Unknown History carvedilol 25 mg tablet 25 mg PO BID 01/06/25 Unknown History potassium chloride 20 mEq 20 meq PO DAILY 01/06/25 Unknown History tablet,extended release(part/cryst) Allergy/AdvReac Type Severity Reaction Status Date / Time No Known Allergies Allergy Verified 01/06/25 19:32 Family History Father Diabetes Surgical History History of lithotripsy History of tonsillectomy and adenoidectomy Hx of cholecystectomy Social History Smoking Status: Current every day smoker tobacco type: cigarettes alcohol intake: never substance use type: does not use EXAM Physical Exam Const Vital Signs: 01/06/25 19:29 Temperature 98.5 F Temperature Source Oral Pulse Rate 92 Respiratory Rate 18 Blood Pressure 186/81 H Blood Pressure Mean 116 Pulse Ox 97 Oxygen Delivery Method Room Air Discharge Plan Triage Chief Complaint: Lower Extremity Injury ED Midlevel Provider: Lakisha Loving ED Provider: Familia August Dx/Rx/DC Orders Prescriptions: No Action lisinopril 20 mg tablet 20 mg PO DAILY 30 Days Qty: 30 0RF carvedilol 25 mg tablet 25 mg PO BID potassium chloride 20 mEq tablet,ER particles/crystals 20 meq PO DAILY amlodipine 10 mg tablet 10 mg PO DAILY Primary Care Provider: Delicia Bergman Referrals: Alberto Solitario MD [Med Staff - Active Staff] - 1-2 Weeks Evelia Mccloud NP-C [Non-Staff] - 3-5 Days Pacheco,Delicia VSC, [employer]-C [Primary Care Provider] - Print Language: Uzbek Disposition Disposition: Home, Self Care
--- NOTE | 2025-01-06 19:41 | EX.ED.DYSGE1 ---
HPI <LYNSEY Stone - Last Filed: 01/06/25 20:00> History of Present Illness Chief Complaint: Lower Extremity Injury Narrative Narrative: 49-year-old male states his roommate's cat scratched his left calf 2 days ago. He woke up this morning and the area was painful and looks more red than usual. He has chronic swelling and discoloration of his legs. He states he felt hot at work like he might had of a fever but did not check his temperature. He took aspirin for pain. He is not diabetic or immunocompromised. PFSH <LYNSEY Stone - Last Filed: 01/06/25 20:00> PFSH Medical History Kidney stones Smoker Sleep apnea Myocardial infarct Congestive heart failure (CHF) COPD with asthma Hypoxia Bilateral pneumonia COPD exacerbation HTN (hypertension) Morbid obesity Tobacco abuse disorder Home Medications ?Medication ?Instructions ?Recorded ?Last Taken ?Type lisinopril 20 mg tablet 20 mg PO DAILY 30 days #30 tabs 01/31/23 Unknown Rx amlodipine 10 mg tablet 10 mg PO DAILY 01/06/25 Unknown History carvedilol 25 mg tablet 25 mg PO BID 01/06/25 Unknown History doxycycline hyclate 100 mg capsule 100 mg PO BID 7 days #14 caps 01/06/25 Unknown Rx potassium chloride 20 mEq 20 meq PO DAILY 01/06/25 Unknown History tablet,extended release(part/cryst) Allergy/AdvReac Type Severity Reaction Status Date / Time No Known Allergies Allergy Verified 01/06/25 19:32 Family History Father Diabetes Surgical History History of lithotripsy History of tonsillectomy and adenoidectomy Hx of cholecystectomy Social History Smoking Status: Current every day smoker tobacco type: cigarettes alcohol intake: never substance use type: does not use ROS <LYNSEY Stone - Last Filed: 01/06/25 20:00> ROS ED ROS Narrative Constitutional: Positive for fever. No chills or malaise. GI: Negative for nausea, vomiting. Neuro: Negative for motor/sensory dysfunction. Skin: Positive for cat scratch. EXAM <LYNSEY Stone - Last Filed: 01/06/25 20:00> Physical Exam Narrative Exam Narrative: CONST: Patient sitting in no acute distress. EYES: Normal inspection. NECK: Normal inspection. RESP: No respiratory distress, CTAB. CVS: Regular rate and rhythm, no murmur, no gallop. SKIN: Color normal, no rash, warm, dry, intact. EXTREMITIES: Bilateral lower extremity lymphedema. Left lateral calf has 3 small abrasions from cat scratches. Both lower extremities have chronic venous stasis and slight redness but it does seem more so on the left calf. He is tender over the area of the scratches without fluctuance or crepitus. He has full range of motion of all joints without pain. Normal sensation. 2+ DP pulses. NEURO: Alert and answering questions appropriately. PSYCH: Normal affect. Const Vital Signs: 01/06/25 19:29 01/06/25 20:05 Temperature 98.5 F 98.6 F Temperature Source Oral Pulse Rate 92 90 Respiratory Rate 18 16 Blood Pressure 186/81 H 138/90 H Blood Pressure Mean 116 106 Pulse Ox 97 97 Oxygen Delivery Method Room Air <Dr. Familia August DO - Last Filed: 01/07/25 00:14> Physical Exam Const Vital Signs: 01/06/25 19:29 01/06/25 20:05 Temperature 98.5 F 98.6 F Temperature Source Oral Pulse Rate 92 90 Respiratory Rate 18 16 Blood Pressure 186/81 H 138/90 H Blood Pressure Mean 116 106 Pulse Ox 97 97 Oxygen Delivery Method Room Air [facility] <LYNSEY Stone - Last Filed: 01/06/25 20:00> [facility] Narrative Medical decision making narrative: 49-year-old male states his roommate's cat scratched his left 2 days ago. There are 3 small abrasions on the lateral calf. Today he developed pain, redness, and a subjective fever. He appears well and nontoxic. He is afebrile. He is hypertensive which is chronic with otherwise stable vital signs. The abrasions on his left lateral leg seem to have increased redness which is superimposed on bilateral lymphedema and chronic venous stasis. There is no signs of abscess or crepitus. Extremities are neurovascularly intact. No indication for imaging. He was treated with doxycycline, naproxen, and tetanus and prescribed antibiotics for home. He was discharged in stable condition. <Dr. Familia August, DO - Last Filed: 01/07/25 00:14> [facility] Treatment and Re-Evaluation :: Attending note: I have personally performed a face to face assessment of the patient and have reviewed the SALMA note. I personally made/approved the management plan and take responsibility for the patient management. I performed a substantive portion of the visit including all aspects of the following. My tovar findings include: 2-day history cat scratch left lower leg from roommate. Tetanus unknown. Nondiabetic. Reports felt warm today. Exam left leg small puncture with scabbing erythema distal leg no streaking up the leg no drainage. Erythema outlined started on doxycycline with cat scratch. Tetanus updated. Strict return precautions. All questions were answered. Discharge Plan Triage Chief Complaint: Lower Extremity Injury ED Midlevel Provider: Lakisha Loving ED Provider: Familia Auguts Dx/Rx/DC Orders Clinical Impression: Cat scratch, Cellulitis of left leg, Tetanus toxoid vaccination administered at current visit Instructions: Animal Bites and Scratches, Cellulitis Dc Prescriptions: New doxycycline hyclate 100 mg capsule 100 mg PO BID 7 Days Qty: 14 0RF No Action lisinopril 20 mg tablet 20 mg PO DAILY 30 Days Qty: 30 0RF carvedilol 25 mg tablet 25 mg PO BID potassium chloride 20 mEq tablet,ER particles/crystals 20 meq PO DAILY amlodipine 10 mg tablet 10 mg PO DAILY Primary Care Provider: Delicia Bergman Referrals: Alberto Solitario MD [Med Staff - Active Staff] - 1-2 Weeks Evelia Mccloud NP-C [Non-Staff] - 3-5 Days Delicia Bergman NP-C [Primary Care Provider] - Activity Restrictions/Additional Instructions: Take Tylenol or ibuprofen as needed for pain. Take all of the antibiotics as prescribed. If you have worsening redness spreading up your leg, high fevers, worsening pain etc. please be reevaluated. Print Language: Qatari Disposition Disposition: Home, Self Care Discharge Date/Time: 01/06/25 20:05
--- OUTSIDE RECORDS SUMMARY | 2025-01-06 19:50 | XMS RPT_ITS | CCD ---
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 Matt Davenport Emergency Provider Dr. Meghan Mejía Admit Provider Dr. Meghan Mejía Attending Provider Dr. Meghan Mejía Other Provider Dr. Herb Williamson Attending Provider Dr. Herb Williamson Other Provider Dr. Clair Riggs Attending Provider Dr. Clair Riggs Other Provider Miryam REGISTERED NURSE CARDIOVASCULAR ICU, REGISTERED NURSE CARDIOVASCULAR ICU-C [place] Primary Care Provider Dr. Lenard Heredia Attending Provider Pacheco REGISTERED NURSE CARDIOVASCULAR ICU-C, Delicia Primary Care Provider Pacheco REGISTERED NURSE CARDIOVASCULAR ICU-C, Delicia Attending Provider Pacheco VSC, Delicia Attending Marieabl e Pacheco C, Delicia Primary Care Unavailabl e Pacheco C, Delicia Attending Unavailabl e Pacheco C, Delicia Primary Care Unavailabl e Pacheco C, Delicia Primary Care Unavailabl e Pacheco C, Delicia Attending Unavailabl e Medications Current Medications Medication Drug Class(es) Dates Sig (Normalized) Sig (Original) [id number] 200 actuat albuterol 0.09 mg/actuat metered dose inhaler (5 sources) beta2-Adrenergic Agonist Start: 01-31-2023 Albuterol Sulfate 90 mcg/actuation HFA aerosol inhaler Active 2 NMA INHALATION Q4H as needed for shortness of breath or wheezing January 31, 2023 12:00am Start: 01-31-2023 Albuterol Sulf ate Active 2 INH INHALATION Q4H January 30, 2023 11:00pm Start: 05-12-2022 Albuterol Sulf ate Active 2 INH INHALATION EVERY 6 HOURS 8.5 May 12, 2022 12:00am amoxicillin 875 mg / clavulanate 125 mg oral tablet (1 source) Penicillin-class Antibacterial Start: 05-12-2022 take [id number] tablet by mouth twice daily Amoxicillin-Pot Clavulanate Active 1 TABLET PO TWICE A DAY May 12, 2022 12:00am Start first dose 05/12 at night azithromycin 500 mg oral tablet (1 source) Macrolide Antimicrobial Start: 05-12-2022 Azithromycin Active 500 MG PO DAILY 1 May 12, 2022 12:00am Take the night of 05/12 to finish your course 200 actuat ipratropium bromide 0.017 mg/actuat metered dose inhaler (1 source) Anticholinergic Start: 05-12-2022 take 1 puff(s) by inhalation every six hours Ipratropium [place] Active 2 PUFF INHALATION EVERY 6 HOURS 12.9 May 12, 2022 12:00am administer with spacer metoprolol tartrate 50 mg oral tablet (2 sources) beta-Adrenergic Lore Start: 09-12-2021 take 1 tablet by mouth once daily Metoprolol Tartrate (Lopressor) 50 mg tablet Active 50 MG PO DAILY September 11, 2021 11:00pm predniSONE 20 mg oral tablet (1 source) Start: 05-12-2022 take 40 mg by mouth at breakfast Prednisone Active 40 MG PO WITH BREAKFAST 8 May 12, 2022 12:00am Completed/Discontinued Medications Medication Drug Class(es) Dates Sig (Normalized) Sig (Original) amLODIPine 10 mg oral tablet (9 sources) Dihydropyridine Calcium Channel Lore Start: 05-12-2022 End: 01-31-2023 take 1 tablet by mouth once daily Amlodipine 10 mg tablet Discontinued 10 mg PO DAILY September 13, 2022 12:00am January 31, 2023 7:06pm aspirin 500 mg oral tablet (4 sources) Platelet Aggregation Inhibitor, Nonsteroidal Anti-inflammatory Drug Start: 09-13-2022 End: 01-31-2023 take 2 tablets by mouth once daily Aspirin 500 mg Tablet Discontinued 1000 mg PO DAILY September 13, 2022 12:00am January 31, 2023 7:06pm while awake Start: 09-13-2022 End: 01-31-2023 take 1000 mg by mouth once daily Aspirin Discontinued 1000 MG PO DAILY September 12, 2022 11:00pm January 31, 2023 6:06pm while awake hydroCHLOROthiazide 12.5 mg oral tablet (9 sources) Thiazide Diuretic Start: 09-13-2022 End: 01-31-2023 take 1 tablet by mouth once daily Hydrochlorothiazide 12.5 mg tablet Discontinued 12.5 mg PO DAILY September 13, 2022 12:00am January 31, 2023 7:06pm Start: 05-12-2022 End: 01-31-2023 take 1 capsule by mouth once daily Hydrochlorothiazide 12.5 mg Capsule Discontinued 12.5 mg PO DAILY May 12, 2022 1:00am January 31, 2023 7:06pm levoFLOXacin 500 mg oral tablet (4 sources) Quinolone Antimicrobial Start: 09-14-2022 End: 01-31-2023 take 1 tablet by mouth once daily Levofloxacin 500 mg tablet Discontinued 500 mg PO DAILY September 14, 2022 12:00am January 31, 2023 7:06pm lisinopril 20 mg oral tablet (13 sources) Angiotensin Converting Enzyme Inhibitor Start: 05-12-2022 End: 01-31-2023 take 1 tablet by mouth once daily Lisinopril 20 mg tablet Discontinued 20 mg PO DAILY September 13, 2022 12:00am January 31, 2023 7:06pm naproxen 500 mg oral tablet (6 sources) Nonsteroidal Anti-inflammatory Drug Start: 01-16-2019 End: 05-12-2022 take 1 tablet by mouth twice daily as needed Naproxen 500 MG tablet Discontinued 500 mg PO TWICE DAILY NEEDED January 16, 2019 12:00am May 12, 2022 12:03pm sulfamethoxazole 800 mg / trimethoprim 160 mg oral tablet (6 sources) Dihydrofolate Reductase Inhibitor Antibacterial, Sulfonamide Antimicrobial Start: 01-16-2019 End: 05-12-2022 Sulfamethoxazole- Trimethoprim 1 TABLET tablet Discontinued 1 {tbl} PO TWICE A DAY January 16, 2019 12:00am May 12, 2022 12:03pm Start: 01-16-2019 End: 05-12-2022 take 1 tablet by mouth twice daily Sulfamethoxazole-Trimethoprim Discontinu ed 1 TABLET PO TWICE A DAY January 15, 2019 11:00pm May 12, 2022 11:03am Problems Active Problems Problem Classification Problem Date Documented Da te Episodic/Chronic Chronic obstructive pulmonary disease and bronchiectasis (6 sources) Acute exacerbation of chronic obstructive airways disease; Translations: [Chronic obstructive pulmonary disease with (acute) exacerbation] Chronic Essential hypertension (17 sources) Malignant hypertension; Translations: [Essential (primary) hypertension] Onset: 12-06-2024 01-31-2023 Chronic Inflammatory conditions of male genital organs (6 sources) Orchitis; Translations: [Orchitis] 01-17-2019 Episodic Other lower respiratory disease (5 sources) Hypoxia; Translations: [Hypoxemia] 05-20-2022 Episodic Other lower respiratory disease (1 source) Hypoxemia; Translations: [Hypoxemia] Episodic Other nutritional; endocrine; and metabolic disorders (5 sources) Morbid obesity; Translations: [Morbid (severe) obesity due to excess calories] 05-10-2022 Chronic Pneumonia (except that caused by tuberculosis or sexually transmitted disease) (6 sources) Bilateral pneumonia; Translations: [Pneumonia, unspecified organism] Episodic Residual codes; unclassified (5 sources) Tobacco user; Translations: [Tobacco use] 05-10-2022 Episodic Urinary tract infections (6 sources) Acute lower urinary tract infection; Translations: [Urinary tract infection, site not specified] 01-17-2019 Episodic Past or Other Problems Problem Classification Problem Date Documented Da te Episodic/Chronic Other screening for suspected conditions (not mental disorders or infectious disease) (1 source) Encounter for screening for lipoid disorders; Translations: [Encounter for screening for lipoid disorders] Onset: 05-28-2024 Episodic Results Test Name Value Interpretation Reference Range Facility Absolute lymphocyte countOrd ered By: [facility] Delicia Bergman on 11-29-2024 Lymphocytes Auto (Unsp spec) [#/Vol] 1.40 10*3/uL 0.83-4.51 [facility] Absolute neutrophil countOrd ered By: [facility] Delicia Bergman on 11-29-2024 Neutrophils (Bld) [#/Vol] 7.0 10*3/uL 2.0-7.7 [facility] Anion gap in Serum or Plasma Ordered By: [facility] Delicia Bergman on 11-29-2024 Anion gap [Moles/Vol] 15 mmol/L 5-15 [facility] Automated lymphocyte count a s percentage of total leukocytesOrdered By: [facility] Delicia Bergman on 11-29-2024 Lymphocytes/100 WBC Auto (Unsp spec) 14.6 % Low 19-41 [facility] BUN/creatinine ratioOrdered By: [facility] Delicia Bergman on 11-29-2024 Urea nitrogen/Creatinine [Mass ratio] 18.9 mg/mg 10-20 [facility] Basophil percentageOrdered B y: [facility] Delicia Bergman on 11-29-2024 Basophils/100 WBC (Bld) 0.6 % 0-1 [facility] Bilirubin, totalOrdered By: [facility] Delicia Bergman on 11-29-2024 Bilirubin [Mass/Vol] 0.41 mg/dL 0.00-1.30 [facility] CBC W/Diff, Automatedon Absolute Lymph 1.40 X10 3/uL Normal 0.83-4.51 [facility] Comment on above: Performed By: #### L 500.4050, L500.4100, L100.0100 #### [facility] [address] [place], [address] Absolute Neut 7.0 X10 3/uL Normal 2.0-7.7 [facility] Comment on above: Performed By: #### L 500.4050, L500.4100, L100.0100 #### [facility] [address] [place], [address] Basophils/100 WBC (Bld) 0.6 % Normal 0-1 [facility] Comment on above: Performed By: #### L 500.4050, L500.4100, L100.0100 #### [facility] [address] [place], [address] Eosinophils/100 WBC (Bld) 2.1 % Normal 0-5 [facility] Comment on above: Performed By: #### L 500.4050, L500.4100, L100.0100 #### [facility] [address] [place], [address] Erythrocyte distribution width (RBC) [Ratio] 13.1 % Normal 11.6-14.6 [facility] Comment on above: Performed By: #### L 500.4050, L500.4100, L100.0100 #### [facility] [address] [place], [address] Hematocrit (Bld) [Volume fraction] 44.1 % Normal 40-54 [facility] Comment on above: Performed By: #### L 500.4050, L500.4100, L100.0100 #### [facility] [address] [place], [address] Hemoglobin (Bld) [Mass/Vol] 14.9 g/dL Normal 13.0-16.5 [facility] Comment on above: Performed By: #### L 500.4050, L500.4100, L100.0100 #### [facility] [address] [place], [address] IG% 0.300 Normal 0.0-0.9 [facility] Comment on above: Result Comment: IG% - Immature Granulocytes (promyelocytes, myelocytes and metamyelocytes) > 1% indicates that a LEFT SHIFT is Present. Performed By: #### L 500.4050, L500.4100, L100.0100 #### [facility] [address] [place], [address] Lymphocytes/100 WBC (Bld) 14.6 % Low 19-41 [facility] Comment on above: Performed By: #### L 500.4050, L500.4100, L100.0100 #### [facility] [address] [place], [address] MCH (RBC) [Entitic mass] 31.2 pg Normal 27.0-32.0 [facility] Comment on above: Performed By: #### L 500.4050, L500.4100, L100.0100 #### [facility] [address] [place], [address] MCHC (RBC) [Mass/Vol] 33.8 g/dL Normal 32-36 [facility] Comment on above: Performed By: #### L 500.4050, L500.4100, L100.0100 #### [facility] [address] [place], [address] MCV (RBC) [Entitic vol] 92.5 fL Normal 80-94 [facility] Comment on above: Performed By: #### L 500.4050, L500.4100, L100.0100 #### [facility] [address] [place], [address] Monocytes/100 WBC (Bld) 9.2 % Normal 0-10 [facility] Comment on above: Performed By: #### L 500.4050, L500.4100, L100.0100 #### [facility] [address] [place], [address] Neutrophils/100 WBC (Bld) 73.2 % High 47-70 [facility] Comment on above: Performed By: #### L 500.4050, L500.4100, L100.0100 #### [facility] [address] [place], [address] Nucleated RBC (Bld) [#/Vol] 0 10*3/uL Normal 0-5 [facility] Comment on above: Performed By: #### L 500.4050, L500.4100, L100.0100 #### [facility] [address] [place], [address] Platelet mean volume (Bld) [Entitic vol] 10.4 fL Normal 6.2-12.0 [facility] Comment on above: Performed By: #### L 500.4050, L500.4100, L100.0100 #### [facility] [address] [place], [address] Platelets (Bld) [#/Vol] 228 10*3/uL Normal 150-450 [facility] Comment on above: Performed By: #### L 500.4050, L500.4100, L100.0100 #### [facility] [address] [place], [address] RBC (Bld) [#/Vol] 4.77 10*6/uL Normal 4.6-6.2 [facility] Comment on above: Performed By: #### L 500.4050, L500.4100, L100.0100 #### [facility] [address] [place], [address] RDW SD 44.2 fl High 35.1-43.9 [facility] Comment on above: Performed By: #### L 500.4050, L500.4100, L100.0100 #### [facility] [address] [place], [address] WBC (Bld) [#/Vol] 9.6 10*3/uL Normal 4.4-11.0 [facility] Comment on above: Performed By: #### L 500.4050, L500.4100, L100.0100 #### [facility] [address] [place], [address] Calculated very low density lipoprotein (VLDL) cholesterol measurementOrdered By: [facility] Delicia Bergman on 11-29-2024 Calculated very low density lipoprotein (VLDL) cholesterol measurement 96 mg/dL High 5-40 [facility] Carbon dioxide, total [Moles /volume] in Central venous bloodOrdered By: [facility] Delicia Bergman on 11-29-2024 CO2 [Moles/Vol] 23.2 mmol/L 21.0-32.0 [facility] Chloride assayOrdered By: ANAND Bergman on 11-29-2024 Chloride [Moles/Vol] 101 mmol/L 98-108 [facility] Comprehensive Metabolic Prof ilon 11-29-2024 Albumin [Mass/Vol] 4.2 g/dL Normal 3.5-5.0 [facility] Comment on above: Performed By: #### L 500.4050, L100.0100, L500.4100, [id number] #### [facility] [address] [place], [address] Albumin/Globulin [Mass ratio] 1.4 {ratio} Normal 0.9-2.4 [facility] Comment on above: Performed By: #### L 500.4050, L100.0100, L500.4100, [id number] #### [facility] [address] [place], [address] ALK PHOS 85 U/L Normal 40-129 [facility] Comment on above: Performed By: #### L 500.4050, L100.0100, L500.4100, [id number] #### [facility] [address] [place], [address] ALT [Catalytic activity/Vol] 15 U/L Normal <=46 [facility] Comment on above: Performed By: #### L 500.4050, L100.0100, L500.4100, [id number] #### [facility] [address] [place], [address] AST [Catalytic activity/Vol] 29 U/L Normal <=37 [facility] Comment on above: Performed By: #### L 500.4050, L100.0100, L500.4100, [id number] #### [facility] [address] [place], [address] Bilirubin [Mass/Vol] 0.41 mg/dL Normal 0.00-1.30 [facility] Comment on above: Performed By: #### L 500.4050, L100.0100, L500.4100, [id number] #### [facility] [address] [place], [address] BUN/CRE 18.9 RATIO Normal 10-20 [facility] Comment on above: Performed By: #### L 500.4050, L100.0100, L500.4100, [id number] #### [facility] [address] [place], [address] Calcium [Mass/Vol] 9.4 mg/dL Normal 7.6-11.0 [facility] Comment on above: Performed By: #### L 500.4050, L100.0100, L500.4100, [id number] #### [facility] [address] [place], [address] Chloride [Moles/Vol] 101 mmol/L Normal 98-108 [facility] Comment on above: Performed By: #### L 500.4050, L100.0100, L500.4100, [id number] #### [facility] [address] [place], [address] CO2 [Moles/Vol] 23.2 mmol/L Normal 21.0-32.0 [facility] Comment on above: Performed By: #### L 500.4050, L100.0100, L500.4100, [id number] #### [facility] [address] [place], [address] Creatinine [Mass/Vol] 1.14 mg/dL Normal 0.70-1.20 [facility] Comment on above: Performed By: #### L 500.4050, L100.0100, L500.4100, [id number] #### [facility] [address] [place], [address] GAP 15 Normal 5-15 [facility] Comment on above: Performed By: #### L 500.4050, L100.0100, L500.4100, [id number] #### [facility] [address] [place], [address] GFR/1.73 sq M.predicted among non-blacks MDRD (S/P/Bld) [Vol rate/Area] 78 mL/min/{1.73_m2} Normal >60 [facility] Comment on above: Result Comment: mL/m in/1.73m2 CKD-EPI Creatinine Equation (2020) Performed By: #### L 500.4050, L100.0100, L500.4100, [id number] #### [facility] [address] [place], [address] Globulin (S) [Mass/Vol] 3.1 g/dL Normal 2.2-4.2 [facility] Comment on above: Performed By: #### L 500.4050, L100.0100, L500.4100, [id number] #### [facility] [address] [place], [address] Glucose [Mass/Vol] 103 mg/dL High 70-99 [facility] Comment on above: Performed By: #### L 500.4050, L100.0100, L500.4100, [id number] #### [facility] [address] [place], [address] Potassium [Moles/Vol] 3.6 mmol/L Normal 3.3-5.1 [facility] Comment on above: Performed By: #### L 500.4050, L100.0100, L500.4100, [id number] #### [facility] [address] [place], [address] Sodium [Moles/Vol] 138 mmol/L Normal 133-145 [facility] Comment on above: Performed By: #### L 500.4050, L100.0100, L500.4100, [id number] #### [facility] [address] [place], [address] T PROT 7.2 g/dL Normal 5.9-8.4 [facility] Comment on above: Performed By: #### L 500.4050, L100.0100, L500.4100, [id number] #### [facility] [address] [place], [address] Urea nitrogen [Mass/Vol] 22 mg/dL High 4-19 [facility] Comment on above: Performed By: #### L 500.4050, L100.0100, L500.4100, [id number] #### [facility] [address] [place], [address] Eosinophil percentageOrdered By: [facility] Delicia Bergman on 11-29-2024 Eosinophils/100 WBC (Bld) 2.1 % 0-5 [facility] Erythrocyte distribution wid th ratioOrdered By: [facility] Delicia Bergman on 11-29-2024 Erythrocyte distribution width (RBC) [Ratio] 13.1 % 11.6-14.6 [facility] Erythrocyte distribution wid th standard deviationOrdered By: [facility] Delicia Bergman on 11-29-2024 Erythrocyte distribution width (RBC) [Ratio] 44.2 fl High 35.1-43.9 [facility] Glomerular filtration rate ( GFR) estimation/1.73 sq m using serum, plasma, or whole bOrdered By: [facility] Delicia Bergman on 11-29-2024 GFR/1.73 sq M.predicted among non-blacks MDRD (S/P/Bld) [Vol rate/Area] 78 mL/min/{1.73_m2} >60 [facility] Comment on above: mL/min/1.73m2 CKD-EP I Creatinine Equation (2020) Hematocrit Auto (Bld) [Volum e fraction]Ordered By: [facility] Delicia Bergman on 11-29-2024 Hematocrit (Bld) [Volume fraction] 44.1 % 40-54 [facility] Hemoglobin measurementOrdere d By: [facility] Delicia Pacheco on 11-29-2024 Hemoglobin (Bld) [Mass/Vol] 14.9 g/dL 13.0-16.5 [facility] Immature granulocytes/100 WB C Auto (Bld)Ordered By: [facility] Delicia Pacheco on 11-29-2024 Immature granulocytes/100 WBC (Bld) 0.300 % 0.0-0.9 [facility] Comment on above: IG% - Immature Granu locytes (promyelocytes, myelocytes and metamyelocytes) > 1% indicates that a LEFT SHIFT is Present. LDL calc ser/plasOrdered By: [facility] Delicia Bergman on 11-29-2024 Cholesterol in LDL [Mass/Vol] 10 mg/dL [facility] Comment on above: Sjbvsevxiq=089-239 m g/dL & Higher Oygk=342 mg/dL or greater Laboratory - Chemistry and C hemistry - challengeOrdered By: [facility] 11-29-2024 AST [Catalytic activity/Vol] 29 U/L <38 [facility] Lipid Profileon 11-29-2024 CHOL:HDL 5.18 Normal [facility] Comment on above: Performed By: #### L 500.4050, L100.0100, L500.4100, [id number] #### [facility] [address] [place], [place], [id number] Cholesterol [Mass/Vol] 131 mg/dL Normal <=200 [facility] Comment on above: Result Comment: Chol esterol level, Desirable <200 mg/dL Borderline high cholesterol 200-239 mg/dL High cholesterol >=240 mg/dL Recommendations of the NCEP Adult Treatment Panel for the following risk-cutoff thresholds for the [place] population. Performed By: #### L 500.4050, L100.0100, L500.4100, [id number] #### [facility] [address] [place], [place], [id number] Cholesterol in HDL [Mass/Vol] 25 mg/dL Low [facility] Comment on above: Result Comment: [place] onal Cholesterol Education Program (NCEP) guidelines: <40 mg/dL: Low HDL-cholesterol (major risk factor for CHD) >= 60 mg/dL: High HDL-cholesterol (negative risk factor for CHD) HDL-cholesterol is affected by a number of factors, e.g. smoking, exercise, hormones, sex and age. Performed By: #### L 500.4050, L100.0100, L500.4100, [id number] #### [facility] [address] [place], [address] Cholesterol in LDL [Mass/Vol] 10 mg/dL Normal [facility] Comment on above: Result Comment: Bord jjgjrm=126-404 mg/dL Higher Uqyc=979 mg/dL or greater Performed By: #### L 500.4050, L100.0100, L500.4100, [id number] #### [facility] [address] [place], [address] Cholesterol in VLDL [Mass/Vol] 96 mg/dL High 5-40 [facility] Comment on above: Performed By: #### L 500.4050, L100.0100, L500.4100, [id number] #### [facility] [address] [place], [address] Triglyceride [Mass/Vol] 478 mg/dL High [facility] Comment on above: Result Comment: The drugs N-Acetylcysteine and Metamizole may falsely depress this assay. Normal range: <150 mg/dL Borderline High: 150-199 mg/dL High: 200-499 mg/dL Very High: >500 mg/dL Performed By: #### L 500.4050, L100.0100, L500.4100, [id number] #### [facility] [address] [place], [address] MCV (mean corpuscular volume ) determinationOrdered By: [facility] Delicia Bergman on 11-29-2024 MCV (RBC) [Entitic vol] 92.5 fL 80-94 [facility] Mean corpuscular hemoglobin (MCH) determinationOrdered By: [facility] Delicia Bergman on 11-29-2024 MCH (RBC) [Entitic mass] 31.2 pg 27.0-32.0 [facility] Mean corpuscular hemoglobin concentration (MCHC) determinationOrdered By: [facility] Delicia Bergman on 11-29-2024 MCHC (RBC) [Mass/Vol] 33.8 g/dL 32-36 [facility] Mean platelet volume determi nationOrdered By: [facility] Delicia Bergman on 11-29-2024 Platelet mean volume (Bld) [Entitic vol] 10.4 fL 6.2-12.0 [facility] Monocyte percentageOrdered B y: [facility] Delicia Bergman on 11-29-2024 Monocytes/100 WBC (Bld) 9.2 % 0-10 [facility] Neutrophil percentageOrdered By: [facility] Delicia Bergman on 11-29-2024 Neutrophils/100 WBC (Bld) 73.2 % High 47-70 [facility] Nucleated red blood cell per centageOrdered By: [facility] Delicia Bergman on 11-29-2024 Nucleated RBC/100 WBC (Bld) [Ratio] 0 % 0-5 [facility] Platelet countOrdered By: [facility] Delicia Bergman on 11-29-2024 Platelets (Bld) [#/Vol] 228 10*3/uL 150-450 [facility] Potassium measurement (mass/ volume)Ordered By: [facility] Delicia Bergman on 11-29-2024 Potassium (Unsp spec) [Mass/Vol] 3.6 mmol/L 3.3-5.1 [facility] RBC Auto (Bld) [#/Vol]Ordere d By: [facility] Delicia Bergman on 11-29-2024 RBC (Bld) [#/Vol] 4.77 10*6/uL 4.6-6.2 [facility] Screening total cholesterol/ high density lipoprotein (HDL) cholesterol ratioOrdered By: [facility] Delicia Bergman on 11-29-2024 Cholesterol.total/Cholest gisell in HDL [Mass ratio] 5.18 {ratio} [facility] Serum creatinine measurement (mass/volume)Ordered By: [facility] Delicia Bergman on 11-29-2024 Creatinine [Mass/Vol] 1.14 mg/dL 0.70-1.20 [facility] Serum globulin measurementOr dered By: [facility] Delicia Bergman on 11-29-2024 Globulin (S) [Mass/Vol] 3.1 g/dL 2.2-4.2 [facility] Serum glucose measurement (m ass/volume)Ordered By: [facility] Delicia Bergman on 11-29-2024 Glucose [Mass/Vol] 103 mg/dL High 70-99 [facility] Serum or plasma alanine cohn otransferase (ALT) measurementOrdered By: [facility] Delicia Bergman on 11-29-2024 ALT [Catalytic activity/Vol] 15 U/L <47 [facility] Serum or plasma albumin trupti urement (mass/volume)Ordered By: [facility] Delicia Bergman on 11-29-2024 Albumin [Mass/Vol] 4.2 g/dL 3.5-5.0 [facility] Serum or plasma albumin/glob ulin mass ratioOrdered By: [facility] Delicia Bergman on 11-29-2024 Albumin/Globulin [Mass ratio] 1.4 {ratio} 0.9-2.4 [facility] Serum or plasma alkaline jovanni sphatase measurementOrdered By: [facility] Delicia Bergman on 11-29-2024 ALP [Catalytic activity/Vol] 85 U/L 40-129 [facility] Serum or plasma calcium trupti urement (mass/volume)Ordered By: [facility] Delicia Bergman on 11-29-2024 Calcium [Mass/Vol] 9.4 mg/dL 7.6-11.0 [facility] Serum or plasma cholesterol in HDL measurement (mass/volume)Ordered By: [facility] Delicia Bergman on 11-29-2024 Cholesterol in HDL [Mass/Vol] 25 mg/dL Low >40 [facility] Comment on above: National Cholesterol Education Program (NCEP) guidelines:<40 mg/dL: Low HDL-cholesterol (major risk factor for CHD)>= 60 mg/dL: High HDL-cholesterol (negative risk factor for CHD)HDL-cholesterol is affected by a number of factors, e.g. smoking, exercise, hormones, sex and age. Serum or plasma cholesterol measurement (mass/volume)Ordered By: [facility] Delicia Bergman on 11-29-2024 Cholesterol [Mass/Vol] 131 mg/dL <201 [facility] Comment on above: Cholesterol level, D esirable <200 mg/dLBorderline high cholesterol 200-239 mg/dLHigh cholesterol >=240 mg/dLRecommendations of the NCEP Adult Treatment Panel for the following risk-cutoff thresholds for the [place] population. Serum or plasma urea nitroge n measurement (mass/volume)Ordered By: [facility] on 11-29-2024 Urea nitrogen [Mass/Vol] 22 mg/dL High 4-19 [facility] Sodium levelOrdered By: [facility] on 11-29-2024 Sodium [Moles/Vol] 138 mmol/L 133-145 [facility] Total proteinOrdered By: [facility] on 11-29-2024 Protein [Mass/Vol] 7.2 g/dL 5.9-8.4 [facility] Triglycerides measurementOrd ered By: [facility] on 11-29-2024 Triglyceride [Mass/Vol] 478 mg/dL High <199 [facility] Comment on above: The drugs N-Acetylcy steine and Metamizole may falsely depress this assay. Normal range: <150 mg/dLBorderline High: 150-199 mg/dLHigh: 200-499 mg/dLVery High: >500 mg/dL White blood cell (WBC) count Ordered By: [facility] Delicia Bergman on 11-29-2024 WBC (Bld) [#/Vol] 9.6 10*3/uL 4.4-11.0 [facility] Absolute lymphocyte countOrd ered By: [facility] on 08-29-2024 Lymphocytes Auto (Unsp spec) [#/Vol] 1.37 10*3/uL 0.83-4.51 [facility] Absolute neutrophil countOrd ered By: [facility] on 08-29-2024 Neutrophils (Bld) [#/Vol] 5.0 10*3/uL 2.0-7.7 [facility] Anion gap in Serum or Plasma Ordered By: [facility] Delicia Bergman on 08-29-2024 Anion gap [Moles/Vol] 15 mmol/L 5-15 [facility] Automated lymphocyte count a s percentage of total leukocytesOrdered By: [facility] Delicia Bergman on 08-29-2024 Lymphocytes/100 WBC Auto (Unsp spec) 18.7 % Low 19-41 [facility] BUN/creatinine ratioOrdered By: [facility] Delicia Bergman on 08-29-2024 Urea nitrogen/Creatinine [Mass ratio] 16.6 mg/mg 10-20 [facility] Basophil percentageOrdered B y: [facility] Delicia Bergman on 08-29-2024 Basophils/100 WBC (Bld) 0.4 % 0-1 [facility] Bilirubin, totalOrdered By: [facility] Delicia Bergman on 08-29-2024 Bilirubin [Mass/Vol] 0.39 mg/dL 0.00-1.30 [facility] CBC W/Diff, Automatedon Absolute Lymph 1.37 X10 3/uL Normal 0.83-4.51 [facility] Comment on above: Performed By: #### L 500.4050, L100.0100, L500.4100, [id number] #### [facility] [address] [place], [address] Absolute Neut 5.0 X10 3/uL Normal 2.0-7.7 [facility] Comment on above: Performed By: #### L 500.4050, L100.0100, L500.4100, [id number] #### [facility] [address] [place], [address] Basophils/100 WBC (Bld) 0.4 % Normal 0-1 [facility] Comment on above: Performed By: #### L 500.4050, L100.0100, L500.4100, [id number] #### [facility] [address] [place], [address] Eosinophils/100 WBC (Bld) 2.7 % Normal 0-5 [facility] Comment on above: Performed By: #### L 500.4050, L100.0100, L500.4100, [id number] #### [facility] [address] [place], [address] Erythrocyte distribution width (RBC) [Ratio] 13.3 % Normal 11.6-14.6 [facility] Comment on above: Performed By: #### L 500.4050, L100.0100, L500.4100, [id number] #### [facility] [address] [place], [address] Hematocrit (Bld) [Volume fraction] 47.7 % Normal 40-54 [facility] Comment on above: Performed By: #### L 500.4050, L100.0100, L500.4100, [id number] #### [facility] [address] [place], [address] Hemoglobin (Bld) [Mass/Vol] 15.8 g/dL Normal 13.0-16.5 [facility] Comment on above: Performed By: #### L 500.4050, L100.0100, L500.4100, [id number] #### [facility] [address] [place], [address] IG% 0.300 Normal 0.0-0.9 [facility] Comment on above: Result Comment: IG% - Immature Granulocytes (promyelocytes, myelocytes and metamyelocytes) > 1% indicates that a LEFT SHIFT is Present. Performed By: #### L 500.4050, L100.0100, L500.4100, [id number] #### [facility] [address] [place], [address] Lymphocytes/100 WBC (Bld) 18.7 % Low 19-41 [facility] Comment on above: Performed By: #### L 500.4050, L100.0100, L500.4100, [id number] #### [facility] [address] [place], [address] MCH (RBC) [Entitic mass] 30.4 pg Normal 27.0-32.0 [facility] Comment on above: Performed By: #### L 500.4050, L100.0100, L500.4100, [id number] #### [facility] [address] [place], [address] MCHC (RBC) [Mass/Vol] 33.1 g/dL Normal 32-36 [facility] Comment on above: Performed By: #### L 500.4050, L100.0100, L500.4100, [id number] #### [facility] [address] [place], [address] MCV (RBC) [Entitic vol] 91.9 fL Normal 80-94 [facility] Comment on above: Performed By: #### L 500.4050, L100.0100, L500.4100, [id number] #### [facility] [address] [place], [address] Monocytes/100 WBC (Bld) 9.8 % Normal 0-10 [facility] Comment on above: Performed By: #### L 500.4050, L100.0100, L500.4100, [id number] #### [facility] [address] [place], [address] Neutrophils/100 WBC (Bld) 68.1 % Normal 47-70 [facility] Comment on above: Performed By: #### L 500.4050, L100.0100, L500.4100, [id number] #### [facility] [address] [place], [address] Nucleated RBC (Bld) [#/Vol] 0 10*3/uL Normal 0-5 [facility] Comment on above: Performed By: #### L 500.4050, L100.0100, L500.4100, [id number] #### [facility] [address] [place], [address] Platelet mean volume (Bld) [Entitic vol] 10.1 fL Normal 6.2-12.0 [facility] Comment on above: Performed By: #### L 500.4050, L100.0100, L500.4100, [id number] #### [facility] [address] [place], [address] Platelets (Bld) [#/Vol] 229 10*3/uL Normal 150-450 [facility] Comment on above: Performed By: #### L 500.4050, L100.0100, L500.4100, [id number] #### [facility] [address] [place], [address] RBC (Bld) [#/Vol] 5.19 10*6/uL Normal 4.6-6.2 [facility] Comment on above: Performed By: #### L 500.4050, L100.0100, L500.4100, [id number] #### [facility] [address] [place], [address] RDW SD 44.7 fl High 35.1-43.9 [facility] Comment on above: Performed By: #### L 500.4050, L100.0100, L500.4100, [id number] #### [facility] [address] [place], [address] WBC (Bld) [#/Vol] 7.3 10*3/uL Normal 4.4-11.0 [facility] Comment on above: Performed By: #### L 500.4050, L100.0100, L500.4100, [id number] #### [facility] [address] [place], [address] Calculated very low density lipoprotein (VLDL) cholesterol measurementOrdered By: [facility] Delicia Pacheco on 08-29-2024 Calculated very low density lipoprotein (VLDL) cholesterol measurement 67 mg/dL High 5-40 [facility] VLDL Cholesterol 67 mg/dL High 5-40 [facility] Carbon dioxide, total [Moles /volume] in Central venous bloodOrdered By: [facility] Delicia Bergman on 08-29-2024 CO2 [Moles/Vol] 22.7 mmol/L 21.0-32.0 [facility] Chloride assayOrdered By: [facility] Delicia Bergman on 08-29-2024 Chloride [Moles/Vol] 102 mmol/L 98-108 [facility] Comprehensive Metabolic Prof ilon 08-29-2024 Albumin [Mass/Vol] 4.3 g/dL Normal 3.5-5.0 [facility] Comment on above: Performed By: #### L 500.4050, L100.0100, L500.4100, [id number] #### [facility] [address] [place], [address] Albumin/Globulin [Mass ratio] 1.3 {ratio} Normal 0.9-2.4 [facility] Comment on above: Performed By: #### L 500.4050, L100.0100, L500.4100, [id number] #### [facility] [address] [place], [address] ALK PHOS 74 U/L Normal 40-129 [facility] Comment on above: Performed By: #### L 500.4050, L100.0100, L500.4100, [id number] #### [facility] [address] [place], [address] ALT [Catalytic activity/Vol] 15 U/L Normal <=46 [facility] Comment on above: Performed By: #### L 500.4050, L100.0100, L500.4100, [id number] #### [facility] [address] [place], [address] AST [Catalytic activity/Vol] 28 U/L Normal <=37 [facility] Comment on above: Performed By: #### L 500.4050, L100.0100, L500.4100, [id number] #### [facility] [address] [place], [address] Bilirubin [Mass/Vol] 0.39 mg/dL Normal 0.00-1.30 [facility] Comment on above: Performed By: #### L 500.4050, L100.0100, L500.4100, [id number] #### [facility] [address] [place], [address] BUN/CRE 16.6 RATIO Normal 10-20 [facility] Comment on above: Performed By: #### L 500.4050, L100.0100, L500.4100, [id number] #### [facility] [address] [place], [address] Calcium [Mass/Vol] 9.4 mg/dL Normal 7.6-11.0 [facility] Comment on above: Performed By: #### L 500.4050, L100.0100, L500.4100, [id number] #### [facility] [address] [place], [address] Chloride [Moles/Vol] 102 mmol/L Normal 98-108 [facility] Comment on above: Performed By: #### L 500.4050, L100.0100, L500.4100, [id number] #### [facility] [address] [place], [address] CO2 [Moles/Vol] 22.7 mmol/L Normal 21.0-32.0 [facility] Comment on above: Performed By: #### L 500.4050, L100.0100, L500.4100, [id number] #### [facility] [address] [place], [address] Creatinine [Mass/Vol] 1.06 mg/dL Normal 0.70-1.20 [facility] Comment on above: Performed By: #### L 500.4050, L100.0100, L500.4100, [id number] #### [facility] [address] [place], [address] GAP 15 Normal 5-15 [facility] Comment on above: Performed By: #### L 500.4050, L100.0100, L500.4100, [id number] #### [facility] [address] [place], [address] GFR/1.73 sq M.predicted among non-blacks MDRD (S/P/Bld) [Vol rate/Area] 85 mL/min/{1.73_m2} Normal >60 [facility] Comment on above: Result Comment: mL/m in/1.73m2 CKD-EPI Creatinine Equation (2020) Performed By: #### L 500.4050, L100.0100, L500.4100, [id number] #### [facility] [address] [place], [address] Globulin (S) [Mass/Vol] 3.2 g/dL Normal 2.2-4.2 [facility] Comment on above: Performed By: #### L 500.4050, L100.0100, L500.4100, [id number] #### [facility] [address] [place], [address] Glucose [Mass/Vol] 96 mg/dL Normal 70-99 [facility] Comment on above: Performed By: #### L 500.4050, L100.0100, L500.4100, [id number] #### [facility] [address] [place], [address] Potassium [Moles/Vol] 4.2 mmol/L Normal 3.3-5.1 [facility] Comment on above: Performed By: #### L 500.4050, L100.0100, L500.4100, [id number] #### [facility] [address] [place], [address] Sodium [Moles/Vol] 140 mmol/L Normal 133-145 [facility] Comment on above: Performed By: #### L 500.4050, L100.0100, L500.4100, [id number] #### [facility] [address] [place], [address] T PROT 7.5 g/dL Normal 5.9-8.4 [facility] Comment on above: Performed By: #### L 500.4050, L100.0100, L500.4100, [id number] #### [facility] [address] [place], [address] Urea nitrogen [Mass/Vol] 18 mg/dL Normal 4-19 [facility] Comment on above: Performed By: #### L 500.4050, L100.0100, L500.4100, [id number] #### [facility] [address] [place], [address] Eosinophil percentageOrdered By: [facility] Delicia Bergman on 08-29-2024 Eosinophils/100 WBC (Bld) 2.7 % 0-5 [facility] Erythrocyte distribution wid th ratioOrdered By: [facility] Delicia Bergman on 08-29-2024 Erythrocyte distribution width (RBC) [Ratio] 13.3 % 11.6-14.6 [facility] Erythrocyte distribution wid th standard deviationOrdered By: [facility] Delicia Bergman on 08-29-2024 Erythrocyte distribution width (RBC) [Entitic vol] 44.7 fL High 35.1-43.9 [facility] Erythrocyte distribution width (RBC) [Ratio] 44.7 fl High 35.1-43.9 [facility] GFR/1.73 sq M.predicted zohreh g non-blacks MDRD (S/P/Bld) [Vol rate/Area]Ordered By: [facility] Delicia Bergman on 08-29-2024 Estimated GFR (MDRD) Non-Af Amer 85 >60 [facility] Comment on above: mL/min/1.73m2 CKD-EP I Creatinine Equation (2020) Glomerular filtration rate ( GFR) estimation/1.73 sq m using serum, plasma, or whole bOrdered By: [facility] Delicia Bergman on 08-29-2024 GFR/1.73 sq M.predicted among non-blacks MDRD (S/P/Bld) [Vol rate/Area] 85 mL/min/{1.73_m2} >60 [facility] Comment on above: mL/min/1.73m2 CKD-EP I Creatinine Equation (2020) Hematocrit Auto (Bld) [Volum e fraction]Ordered By: [facility] Delicia Bergman on 08-29-2024 Hematocrit (Bld) [Volume fraction] 47.7 % 40-54 [facility] Hemoglobin measurementOrdere d By: [facility] Delicia Bergman on 08-29-2024 Hemoglobin (Bld) [Mass/Vol] 15.8 g/dL 13.0-16.5 [facility] Immature granulocytes/100 WB C Auto (Bld)Ordered By: [facility] Delicia Bergman on 08-29-2024 Immature granulocytes/100 WBC (Bld) 0.300 % 0.0-0.9 [facility] Comment on above: IG% - Immature Granu locytes (promyelocytes, myelocytes and metamyelocytes) > 1% indicates that a LEFT SHIFT is Present. LDL calc ser/plasOrdered By: [facility] Delicia Bergman on 08-29-2024 Cholesterol in LDL [Mass/Vol] 87 mg/dL [facility] Comment on above: Kjwnpyscek=721-229 m g/dL & Higher Azsm=905 mg/dL or greater LDL Cholesterol, Calculated 87 mg/dL [facility] Comment on above: Noajdieekh=436-061 m g/dL & Higher Mary=741 mg/dL or greater Laboratory - Chemistry and C hemistry - challengeOrdered By: [facility] Delicia Pacheco on 08-29-2024 AST [Catalytic activity/Vol] 28 U/L <38 [facility] Lipid Profileon 08-29-2024 CHOL:HDL 6.16 Normal [facility] Comment on above: Performed By: #### L 500.4050, L100.0100, L500.4100, [id number] #### [facility] [address] [place], [address] Cholesterol [Mass/Vol] 183 mg/dL Normal <=200 [facility] Comment on above: Result Comment: Chol esterol level, Desirable <200 mg/dL Borderline high cholesterol 200-239 mg/dL High cholesterol >=240 mg/dL Recommendations of the NCEP Adult Treatment Panel for the following risk-cutoff thresholds for the [place] population. Performed By: #### L 500.4050, L100.0100, L500.4100, L501.9520 #### [facility] [address] [place], [address] Cholesterol in HDL [Mass/Vol] 30 mg/dL Low [facility] Comment on above: Result Comment: [place] Cholesterol Education Program (NCEP) guidelines: <40 mg/dL: Low HDL-cholesterol (major risk factor for CHD) >= 60 mg/dL: High HDL-cholesterol (negative risk factor for CHD) HDL-cholesterol is affected by a number of factors, e.g. smoking, exercise, hormones, sex and age. Performed By: #### L 500.4050, L100.0100, L500.4100, [id number] #### [facility] [address] [place], [address] Cholesterol in LDL [Mass/Vol] 87 mg/dL Normal [facility] Comment on above: Result Comment: Bord ctitvn=622-570 mg/dL Higher Nvon=400 mg/dL or greater Performed By: #### L 500.4050, L100.0100, L500.4100, [id number] #### [facility] [address] [place], [address] Cholesterol in VLDL [Mass/Vol] 67 mg/dL High 5-40 [facility] Comment on above: Performed By: #### L 500.4050, L100.0100, L500.4100, [id number] #### [facility] [address] [place], [address] Triglyceride [Mass/Vol] 334 mg/dL High [facility] Comment on above: Result Comment: The drugs N-Acetylcysteine and Metamizole may falsely depress this assay. Normal range: <150 mg/dL Borderline High: 150-199 mg/dL High: 200-499 mg/dL Very High: >500 mg/dL Performed By: #### L 500.4050, L100.0100, L500.4100, [id number] #### [facility] [address] [facility] [place], [address] Lymphocytes Auto (Unsp spec) [#/Vol]Ordered By: [facility] Delicia Bergman on 08-29-2024 Lymphocytes (Bld) [#/Vol] 1.37 10*3/uL 0.83-4.5 1 [facility] Lymphocytes/100 WBC Auto (Un sp spec)Ordered By: [facility] Delicia Bergman on 08-29-2024 Lymphocytes/100 WBC (Bld) 18.7 % Low 19-41 [facility] MCV (mean corpuscular volume ) determinationOrdered By: [facility] Delicia Bergman on 08-29-2024 MCV (RBC) [Entitic vol] 91.9 fL 80-94 [facility] Mean corpuscular hemoglobin (MCH) determinationOrdered By: [facility] Delicia Bergman on 08-29-2024 MCH (RBC) [Entitic mass] 30.4 pg 27.0-32.0 [facility] Mean corpuscular hemoglobin concentration (MCHC) determinationOrdered By: [facility] Delicia Bergman on 08-29-2024 MCHC (RBC) [Mass/Vol] 33.1 g/dL 32-36 [facility] Mean platelet volume determi nationOrdered By: [facility] Delicia Bergman on 08-29-2024 Platelet mean volume (Bld) [Entitic vol] 10.1 fL 6.2-12.0 [facility] Monocyte percentageOrdered B y: [facility] Delicia Bergman on 08-29-2024 Monocytes/100 WBC (Bld) 9.8 % 0-10 [facility] Neutrophil percentageOrdered By: [facility] Delicia Bergman on 08-29-2024 Neutrophils/100 WBC (Bld) 68.1 % 47-70 [facility] Nucleated red blood cell per centageOrdered By: [facility] Delicia Bergman on 08-29-2024 Nucleated RBC/100 WBC (Bld) [Ratio] 0 % 0-5 [facility] Platelet countOrdered By: [facility] Delicia Bergman on 08-29-2024 Platelets (Bld) [#/Vol] 229 10*3/uL 150-450 [facility] Potassium (Unsp spec) [Mass/ Vol]Ordered By: [facility] Delicia Bergman on 08-29-2024 Potassium [Moles/Vol] 4.2 mmol/L 3.3-5.1 [facility] Potassium measurement (mass/ volume)Ordered By: [facility] Delicia Bergman on 08-29-2024 Potassium (Unsp spec) [Mass/Vol] 4.2 mmol/L 3.3-5.1 [facility] RBC Auto (Bld) [#/Vol]Ordere d By: [facility] Delicia Bergman on 08-29-2024 RBC (Bld) [#/Vol] 5.19 10*6/uL 4.6-6.2 [facility] Screening total cholesterol/ high density lipoprotein (HDL) cholesterol ratioOrdered By: [facility] Delicia Bergman on 08-29-2024 Cholesterol.total/Cholest gisell in HDL [Mass ratio] 6.16 {ratio} [facility] Serum creatinine measurement (mass/volume)Ordered By: [facility] Delicia Bergman on 08-29-2024 Creatinine [Mass/Vol] 1.06 mg/dL 0.70-1.20 [facility] Serum globulin measurementOr dered By: [facility] Delicia Bergman on 08-29-2024 Globulin (S) [Mass/Vol] 3.2 g/dL 2.2-4.2 [facility] Serum glucose measurement (m ass/volume)Ordered By: [facility] Delicia Bergman on 08-29-2024 Glucose [Mass/Vol] 96 mg/dL 70-99 [facility] Serum or plasma alanine cohn otransferase (ALT) measurementOrdered By: [facility] Deliciacharissa Bergman on 08-29-2024 ALT [Catalytic activity/Vol] 15 U/L <47 [facility] Serum or plasma albumin trupti urement (mass/volume)Ordered By: [facility] Delicia Bergman on 08-29-2024 Albumin [Mass/Vol] 4.3 g/dL 3.5-5.0 [facility] Serum or plasma albumin/glob ulin mass ratioOrdered By: [facility] 08-29-2024 Albumin/Globulin [Mass ratio] 1.3 {ratio} 0.9-2.4 [facility] Serum or plasma alkaline jovanni sphatase measurementOrdered By: [facility] on 08-29-2024 ALP [Catalytic activity/Vol] 74 U/L 40-129 [facility] Serum or plasma calcium trupti urement (mass/volume)Ordered By: [facility] Deliciacharissa Bergman on 08-29-2024 Calcium [Mass/Vol] 9.4 mg/dL 7.6-11.0 [facility] Serum or plasma cholesterol in HDL measurement (mass/volume)Ordered By: [facility] Deliciacharissa Bergman on 08-29-2024 Cholesterol in HDL [Mass/Vol] 30 mg/dL Low >40 [facility] Comment on above: National Cholesterol Education Program (NCEP) guidelines:<40 mg/dL: Low HDL-cholesterol (major risk factor for CHD)>= 60 mg/dL: High HDL-cholesterol (negative risk factor for CHD)HDL-cholesterol is affected by a number of factors, e.g. smoking, exercise, hormones, sex and age. Serum or plasma cholesterol measurement (mass/volume)Ordered By: [facility] Delicia Bergman on 08-29-2024 Cholesterol [Mass/Vol] 183 mg/dL <201 [facility] Comment on above: Cholesterol level, D esirable <200 mg/dLBorderline high cholesterol 200-239 mg/dLHigh cholesterol >=240 mg/dLRecommendations of the NCEP Adult Treatment Panel for the following risk-cutoff thresholds for the [place] population. Serum or plasma urea nitroge n measurement (mass/volume)Ordered By: [facility] Delicia Bergman on 08-29-2024 Urea nitrogen [Mass/Vol] 18 mg/dL 4-19 [facility] Sodium levelOrdered By: [facility] on 08-29-2024 Sodium [Moles/Vol] 140 mmol/L 133-145 [facility] TSH DL <= 0.005 mIU/L QnOrde red By: [facility] Delicia Bergman on 08-29-2024 Thyroid Stimulating Hormone (TSH) 2.110 uIU/mL 0.300-4.200 [facility] TSH Qn 2.110 uIU/mL 0.300-4.200 [facility] Thyroid Stim Hormone (TSH)on 08-29-2024 TSH 2.110 uIU/mL Normal 0.300-4.200 [facility] Comment on above: Performed By: #### L 500.4050, L100.0100, L500.4100, L501.9520 #### [facility] [place], [place], [id number] Total proteinOrdered By: [facility] Delicia Bergman on 08-29-2024 Protein [Mass/Vol] 7.5 g/dL 5.9-8.4 [facility] Triglycerides measurementOrd ered By: [facility] Delicia Bergman on 08-29-2024 Triglyceride [Mass/Vol] 334 mg/dL High <199 [facility] Comment on above: The drugs N-Acetylcy steine and Metamizole may falsely depress this assay. Normal range: <150 mg/dLBorderline High: 150-199 mg/dLHigh: 200-499 mg/dLVery High: >500 mg/dL White blood cell (WBC) count Ordered By: [facility] Delicia Bergman on 08-29-2024 WBC (Bld) [#/Vol] 7.3 10*3/uL 4.4-11.0 [facility] CBC W/Diff, Automatedon 10-2 9-2024 Absolute Lymph 1.55 X10 3/uL Normal 0.83-4.51 [facility] Comment on above: Performed By: #### L 501.9985, L501.9520, L500.4050, L500.4100, L100.0100 #### [facility] [address] [place], [address] Absolute Neut 6.0 X10 3/uL Normal 2.0-7.7 [facility] Comment on above: Performed By: #### L 501.9985, L501.9520, L500.4050, L500.4100, L100.0100 #### [facility] [address] [place], [address] Basophils/100 WBC (Bld) 0.6 % Normal 0-1 [facility] Comment on above: Performed By: #### L 501.9985, L501.9520, L500.4050, L500.4100, L100.0100 #### [facility] [address] [place], [address] Eosinophils/100 WBC (Bld) 2.1 % Normal 0-5 [facility] Comment on above: Performed By: #### L 501.9985, L501.9520, L500.4050, L500.4100, L100.0100 #### [facility] [address] [place], [address] Erythrocyte distribution width (RBC) [Ratio] 14.2 % Normal 11.6-14.6 [facility] Comment on above: Performed By: #### L 501.9985, L501.9520, L500.4050, L500.4100, L100.0100 #### [facility] [address] [place], [address] Hematocrit (Bld) [Volume fraction] 46.5 % Normal 40-54 [facility] Comment on above: Performed By: #### L 501.9985, L501.9520, L500.4050, L500.4100, L100.0100 #### [facility] [address] [place], [address] Hemoglobin (Bld) [Mass/Vol] 15.3 g/dL Normal 13.0-16.5 [facility] Comment on above: Performed By: #### L 501.9985, L501.9520, L500.4050, L500.4100, L100.0100 #### [facility] [address] [place], [address] IG% 0.500 Normal 0.0-0.9 [facility] Comment on above: Result Comment: IG% - Immature Granulocytes (promyelocytes, myelocytes and metamyelocytes) > 1% indicates that a LEFT SHIFT is Present. Performed By: #### L 501.9985, L501.9520, L500.4050, L500.4100, L100.0100 #### [facility] [address] [place], [address] Lymphocytes/100 WBC (Bld) 17.9 % Low 19-41 [facility] Comment on above: Performed By: #### L 501.9985, L501.9520, L500.4050, L500.4100, L100.0100 #### [facility] [address] [place], [address] MCH (RBC) [Entitic mass] 30.2 pg Normal 27.0-32.0 [facility] Comment on above: Performed By: #### L 501.9985, L501.9520, L500.4050, L500.4100, L100.0100 #### [facility] [address] [place], [address] MCHC (RBC) [Mass/Vol] 32.9 g/dL Normal 32-36 [facility] Comment on above: Performed By: #### L 501.9985, L501.9520, L500.4050, L500.4100, L100.0100 #### [facility] [address] [place] [place], [address] MCV (RBC) [Entitic vol] 91.7 fL Normal 80-94 [facility] Comment on above: Performed By: #### L 501.9985, L501.9520, L500.4050, L500.4100, L100.0100 #### [facility] [address] [place] [place], [address] Monocytes/100 WBC (Bld) 9.9 % Normal 0-10 [facility] Comment on above: Performed By: #### L 501.9985, L501.9520, L500.4050, L500.4100, L100.0100 #### [facility] [address] [place], [address] Neutrophils/100 WBC (Bld) 69.0 % Normal 47-70 [facility] Comment on above: Performed By: #### L 501.9985, L501.9520, L500.4050, L500.4100, L100.0100 #### [facility] [address] [place] [place], [address] Nucleated RBC (Bld) [#/Vol] 0 10*3/uL Normal 0-5 [facility] Comment on above: Performed By: #### L 501.9985, L501.9520, L500.4050, L500.4100, L100.0100 #### [facility] [address] [place], [address] Platelet mean volume (Bld) [Entitic vol] 10.2 fL Normal 6.2-12.0 [facility] Comment on above: Performed By: #### L 501.9985, L501.9520, L500.4050, L500.4100, L100.0100 #### [facility] [address] [place], [address] Platelets (Bld) [#/Vol] 221 10*3/uL Normal 150-450 [facility] Comment on above: Performed By: #### L 501.9985, L501.9520, L500.4050, L500.4100, L100.0100 #### [facility] [address] [place], [address] RBC (Bld) [#/Vol] 5.07 10*6/uL Normal 4.6-6.2 [facility] Comment on above: Performed By: #### L 501.9985, [id number], L500.4050, L500.4100, L100.0100 #### [facility] [address] [place], [address] RDW SD 47.3 fl High 35.1-43.9 [facility] Comment on above: Performed By: #### L 501.9985, L501.9520, L500.4050, L500.4100, L100.0100 #### [facility] [address] [place], [address] WBC (Bld) [#/Vol] 8.7 10*3/uL Normal 4.4-11.0 [facility] Comment on above: Performed By: #### L 501.9985, L501.9520, L500.4050, L500.4100, L100.0100 #### [facility] [address] [place], [address] Comprehensive Metabolic Prof [facility] 04-25-2024 Albumin [Mass/Vol] 3.6 g/dL Normal 3.2-5.0 [facility] Comment on above: Performed By: #### L 501.9985, L501.9520, L500.4050, L500.4100, L100.0100 #### [facility] [address] [place], [address] Albumin/Globulin [Mass ratio] 0.9 {ratio} Normal 0.9-2.4 [facility] Comment on above: Performed By: #### L 501.9985, L501.9520, L500.4050, L500.4100, L100.0100 #### [facility] [address] [place], [address] ALK P 78 U/L Normal 45-117 [facility] Comment on above: Performed By: #### L 501.9985, L501.9520, L500.4050, L500.4100, L100.0100 #### [facility] [address] [place], [address] ALT [Catalytic activity/Vol] 19 U/L Normal 16-61 [facility] Comment on above: Performed By: #### L 501.9985, L501.9520, L500.4050, L500.4100, L100.0100 #### [facility] [address] [place], [address] AST [Catalytic activity/Vol] 18 U/L Normal 15-37 [facility] Comment on above: Performed By: #### L 501.9985, L501.9520, L500.4050, L500.4100, L100.0100 #### [facility] [address] [place], [address] Bilirubin [Mass/Vol] 0.50 mg/dL Normal 0.20-1.00 [facility] Comment on above: Result Comment: For patients on eltrombopag therapy, use of Dimension [place] TBIL is not recommended. Performed By: #### L 501.9985, L501.9520, L500.4050, L500.4100, L100.0100 #### [facility] [address] [place], [address] BUN/CRE 9.6 RATIO Low 10-20 [facility] Comment on above: Performed By: #### L 501.9985, L501.9520, L500.4050, L500.4100, L100.0100 #### [facility] [address] [place], [address] CA,Total 8.9 mg/dL Normal 8.5-10.1 [facility] Comment on above: Performed By: #### L 501.9985, L501.9520, L500.4050, L500.4100, L100.0100 #### [facility] [address] [place], [address] Chloride [Moles/Vol] 105 mmol/L Normal 98-107 [facility] Comment on above: Performed By: #### L 501.9985, L501.9520, L500.4050, L500.4100, L100.0100 #### [facility] [address] [place], [address] CO2 [Moles/Vol] 28.0 mmol/L Normal 21.0-32.0 [facility] Comment on above: Performed By: #### L 501.9985, L501.9520, L500.4050, L500.4100, L100.0100 #### [facility] [address] [place], [address] Creatinine [Mass/Vol] 1.15 mg/dL Normal 0.70-1.30 [facility] Comment on above: Result Comment: The validity of the calculated GFR GFRAA in patients over 70 years has not been determined. Clinical correlation is essential. Performed By: #### L 501.9985, L501.9520, L500.4050, L500.4100, L100.0100 #### [facility] [address] [place], [address] EST GFR - AA 86 mL/min Normal >60 [facility] Comment on above: Result Comment: Afri can [place] GFR Calc Performed By: #### L 501.9985, L501.9520, L500.4050, L500.4100, L100.0100 #### [facility] [address] [place], [address] GAP 6 Normal 5-15 [facility] Comment on above: Performed By: #### L 501.9985, L501.9520, L500.4050, L500.4100, L100.0100 #### [facility] [address] [place], [address] GFR/1.73 sq M.predicted among non-blacks MDRD (S/P/Bld) [Vol rate/Area] 71 mL/min/{1.73_m2} Normal >60 [facility] Comment on above: Result Comment: Non- GFR Calc Performed By: #### L 501.9985, L501.9520, L500.4050, L500.4100, L100.0100 #### [facility] [address] [place], [address] Globulin (S) [Mass/Vol] 4.0 g/dL Normal 2.2-4.2 [facility] Comment on above: Performed By: #### L 501.9985, L501.9520, L500.4050, L500.4100, L100.0100 #### [facility] [address] [place], [address] Glucose [Mass/Vol] 101 mg/dL Normal 74-106 [facility] Comment on above: Result Comment: Fast ing Glucose result from 100 to 125 mg/dL suggests IMPAIRED HOMEOSTASIS per A.D.A. criteria. Performed By: #### L 501.9985, L501.9520, L500.4050, L500.4100, L100.0100 #### [facility] [address] [place], [address] Potassium [Moles/Vol] 3.6 mmol/L Normal 3.5-5.1 [facility] Comment on above: Performed By: #### L 501.9985, L501.9520, L500.4050, L500.4100, L100.0100 #### [facility] [address] [place], [address] Sodium [Moles/Vol] 139 mmol/L Normal 136-145 [facility] Comment on above: Performed By: #### L 501.9985, L501.9520, L500.4050, L500.4100, L100.0100 #### [facility] [address] [place], [address] T PROT 7.6 g/dL Normal 6.4-8.2 [facility] Comment on above: Performed By: #### L 501.9985, L501.9520, L500.4050, L500.4100, L100.0100 #### [facility] [address] [place], [address] Urea nitrogen [Mass/Vol] 11 mg/dL Normal 7-18 [facility] Comment on above: Performed By: #### L 501.9985, L501.9520, L500.4050, L500.4100, L100.0100 #### [facility] [address] [place], [address] Hemoglobin A1con 04-25-2024 HbA1c (Bld) [Mass fraction] 5.4 % Normal 3.8-5.6 [facility] Comment on above: Result Comment: Norm al < 5.7 % Prediabetic 5.7 - 6.4 % Diabetic >or= 6.5 % Please note range changes. Performed By: #### L 501.9985, L501.9520, L500.4050, L500.4100, L100.0100 #### [facility] [address] [place], [address] Lipid Profileon 04-25-2024 Cholesterol [Mass/Vol] 173 mg/dL Normal 200 [facility] Comment on above: Result Comment: <200 mg/dL Desirable 200-240 mg/dL Borderline >240 mg/dL High Risk Performed By: #### L 501.9985, L501.9520, L500.4050, L500.4100, L100.0100 #### [facility] [address] [place], [address] Cholesterol in HDL [Mass/Vol] 34 mg/dL Low [facility] Comment on above: Result Comment: The drugs N-Acetylcysteine and Metamizole may falsely depress this assay. Reference Range HDL <40 mg/dL Low HDL Cholesterol HDL >or= 60 mg/dL High HDL Cholesterol Performed By: #### L 501.9985, L501.9520, L500.4050, L500.4100, L100.0100 #### [facility] [address] [place], [address] Cholesterol in LDL [Mass/Vol] 67 mg/dL Normal 0-130 [facility] Comment on above: Performed By: #### L 501.9985, L501.9520, L500.4050, L500.4100, L100.0100 #### [facility] [address] [place], [address] Cholesterol in VLDL [Mass/Vol] 72 mg/dL High 5-40 [facility] Comment on above: Performed By: #### L 501.9985, L501.9520, L500.4050, L500.4100, L100.0100 #### [facility] [address] [place], [address] Triglyceride [Mass/Vol] 362 mg/dL High [facility] Comment on above: Result Comment: The drugs N-Acetylcysteine and Metamizole may falsely depress this assay. Serum Triglycerides Reference Interval Normal <150 mg/dL Borderline high 150 - 199 mg/dL High 200 - 499 mg/dL Very High > or = 500 mg/dL Performed By: #### L 501.9985, L501.9520, L500.4050, L500.4100, L100.0100 #### [facility] [address] [place], [address] Thyroid Stim Hormone (TSH)on 04-25-2024 TSH 2.040 uIU/mL Normal 0.358-3.740 [facility] Comment on above: Performed By: #### L 501.9985, L501.9520, L500.4050, L500.4100, L100.0100 #### [facility] [address] [facility] [place], [address] Absolute lymphocyte countOrd ered By: Alexy Randle on 01-31-2023 Lymphocytes Auto (Unsp spec) [#/Vol] 1.24 10*3/uL 0.83-4.51 [facility] Basophil percentageOrdered B y: Alexy Randle on 01-31-2023 Basophils/100 WBC (Bld) 0.5 % 0-1 [facility] Bilirubin [Mass/Vol] 0.70 mg/dL 0.20-1.00 [facility] Comment on above: For patients on eltr ombopag therapy, use of Dimension [place] TBIL is not recommended. Chloride [Moles/Vol] 106 mmol/L 98-107 [facility] Eosinophils/100 WBC (Bld) 0.7 % 0-5 [facility] Glucose [Mass/Vol] 95 mg/dL 74-106 [facility] Neutrophils (Bld) [#/Vol] 8.9 10*3/uL 2.0-7.7 [facility] Neutrophils/100 WBC (Bld) 78.7 % 47-70 [facility] Potassium [Moles/Vol] 3.2 mmol/L 3.5-5.1 [facility] Protein [Mass/Vol] 6.2 g/dL 6.4-8.2 [facility] Sodium [Moles/Vol] 141 mmol/L 136-145 [facility] WBC (Bld) [#/Vol] 11.3 10*3/uL 4.4-11.0 [facility] Blood erythrocytes count (nu mber/volume)Ordered By: Alexy Randle on 01-31-2023 RBC (Bld) [#/Vol] 4.80 10*6/uL 4.6-6.2 [facility] Blood hemoglobin measurement (mass/volume)Ordered By: Alexy Randle on 01-31-2023 Hemoglobin (Bld) [Mass/Vol] 14.3 g/dL 13.0-16.5 [facility] Blood lymphocytes/100 leukoc ytesOrdered By: Alexy Randle on 01-31-2023 Lymphocytes/100 WBC (Bld) 10.9 % 19-41 [facility] Blood monocytes/100 leukocyt esOrdered By: Alexy Randle on 01-31-2023 Monocytes/100 WBC (Bld) 8.6 % 0-10 [facility] Blood platelet mean volumeOr dered By: Alexy Randle on 01-31-2023 Platelet mean volume (Bld) [Entitic vol] 10.0 fL 6.2-12.0 [facility] Determination of erythrocyte mean corpuscular volume (MCV)Ordered By: Alexy Randle on 01-31-2023 MCV (RBC) [Entitic vol] 95.4 fL 80-94 [facility] Direct bilirubinOrdered By: Alexy Randle on 01-31-2023 Bilirubin.direct [Mass/Vol] 0.18 mg/dL 0.00-0.30 [facility] Hematocrit Auto (Bld) [Volum e fraction]Ordered By: Alexy Randle on 01-31-2023 Hematocrit (Bld) [Volume fraction] 45.8 % 40-54 [facility] Influenza virus A and B and SARS-CoV-2 (COVID-19) Ag panel - Upper respiratory specimOrdered By: Alexy Randle on 01-31-2023 SARS-CoV-2 (COVID-19) RNA DEEPTI+probe Ql (Resp) [facility] - Chemistry and C hemistry - challengeOrdered By: Alexy Randle on 01-31-2023 ALP [Catalytic activity/Vol] 73 U/L 45-117 [facility] ALT [Catalytic activity/Vol] 17 U/L 16-61 [facility] CO2 [Moles/Vol] 29.0 mmol/L 21.0-32.0 [facility] Globulin (S) [Mass/Vol] 3.0 g/dL 2.2-4.2 [facility] Lipase [Catalytic activity/Vol] 30 U/L 13-75 [facility] Comment on above: Please note:LIPASE r evised reference range effective 22. New Lipase methodology. Expected to produce lower values than the previous assay method. NEW Reference Range: 13 - 75 U/L Natriuretic peptide B (Bld) [Mass/Vol] 99.8 pg/mL 0-100 [facility] Urea nitrogen/Creatinine [Mass ratio] 14.7 mg/mg 10-20 [facility] - Hematology and Cell countsOrdered By: Alexy Randle on 01-31-2023 Erythrocyte distribution width (RBC) [Entitic vol] 49.0 fL 35.1-43.9 [facility] Erythrocyte distribution width (RBC) [Ratio] 14.0 % 11.6-14.6 [facility] Immature granulocytes/100 WBC (Bld) 0.600 % 0.0-0.9 [facility] Comment on above: IG% - Immature Granu locytes (promyelocytes, myelocytes and metamyelocytes) > 1% indicates that a LEFT SHIFT is Present. MCH (RBC) [Entitic mass] 29.8 pg 27.0-32.0 [facility] Nucleated RBC/100 WBC (Bld) [Ratio] 0 % 0-5 [facility] MCHC Auto (RBC) [Mass/Vol]Or dered By: Alexy Randle on 01-31-2023 MCHC (RBC) [Mass/Vol] 31.2 g/dL 32-36 [facility] No Panel InformationOrdered By: Alexy Randle on 01-31-2023 Troponin I High Sensitivity 47 pg/mL 3.0-78.0 [facility] Comment on above: Please Note: New Estefani t Units and Gender Specific Reference Ranges. For more information see Policy Stat Procedure [place] High Sensitivity Troponin (TNIH) and attachments. Estimated Creatinine Clearance Calc 93.30 ml/min [facility] Estimated GFR (MDRD) Amer 100 mL/min >60 [facility] Comment on above: GFR Calc Estimated GFR (MDRD) Non-Af Amer 82 mL/min >60 [facility] Comment on above: Non- GFR Calc Platelets bldOrdered By: Jada Randle on 01-31-2023 Platelets (Bld) [#/Vol] 203 10*3/uL 150-450 [facility] Serum or plasma albumin trupti urement (mass/volume)Ordered By: Alexy Randle on 01-31-2023 Albumin [Mass/Vol] 3.2 g/dL 3.2-5.0 [facility] Serum or plasma calcium trupti urement (mass/volume)Ordered By: Alexy Randle on 01-31-2023 Calcium [Mass/Vol] 8.1 mg/dL 8.5-10.1 [facility] Serum or plasma creatinine m easurement (mass/volume)Ordered By: Alexy Randle on 01-31-2023 Creatinine [Mass/Vol] 1.02 mg/dL 0.70-1.30 [facility] Comment on above: The validity of the calculated GFR & GFRAA in patients over 70 years has not been determined. Clinical correlation is essential. Serum or plasma urea nitroge n measurement (mass/volume)Ordered By: Alexy Randle on 01-31-2023 Urea nitrogen [Mass/Vol] 15 mg/dL 7-18 [facility] Thin prep Papanicolaou smear with manual screeningOrdered By: Alexy Randle on 01-31-2023 Thin prep Papanicolaou smear with manual screening 14 U/L 15-37 [facility] Thin prep Papanicolaou smear with manual screening 6 5-15 [facility] Whole blood hemoglobin A1c/t otal hemoglobin ratio (mass fraction)Ordered By: Alexy Randle on 01-31-2023 HbA1c (Bld) [Mass fraction] 5.3 % 3.8-5.6 [facility] Comment on above: Normal < 5.7 % Predi abetic 5.7 - 6.4 % Diabetic >or= 6.5 % Please note range changes. Absolute lymphocyte counton 05-12-2022 Lymphocytes Auto (Unsp spec) [#/Vol] 1.17 10*3/uL 0.83-4.51 [facility] Work Phone: [phone] Basophil percentageon 2021 Basophils/100 WBC (Bld) 0.3 % 0-1 [facility] Work Phone: Chloride [Moles/Vol] 101 mmol/L 98-107 [facility]: Eosinophils/100 WBC (Bld) 0.0 % 0-5 [facility] Work Phone: [phone] Glucose [Mass/Vol] 124 mg/dL 74-106 [facility] Work Phone: [phone] Comment on above: Fasting Glucose resu lt from 100 to 125 mg/dL suggests IMPAIRED HOMEOSTASIS per A.D.A. criteria. Neutrophils (Bld) [#/Vol] 16.6 10*3/uL 2.0-7.7 [facility] Work Phone: [phone] Neutrophils/100 WBC (Bld) 86.9 % 47-70 [facility] Work Phone: [phone] Potassium [Moles/Vol] 4.1 mmol/L 3.5-5.1 [facility] Work Phone: [phone] Sodium [Moles/Vol] 138 mmol/L 136-145 [facility] Work Phone: [phone] WBC (Bld) [#/Vol] 19.1 10*3/uL 4.4-11.0 [facility] Work Phone: [phone] Blood erythrocytes count (nu mber/volume)on 05-12-2022 RBC (Bld) [#/Vol] 5.12 10*6/uL 4.6-6.2 [facility] Work Phone: [phone] Blood hemoglobin measurement (mass/volume)on 05-12-2022 Hemoglobin (Bld) [Mass/Vol] 15.3 g/dL 13.0-16.5 [facility] Work Phone: Blood lymphocytes/100 leukoc yteson 05-12-2022 Lymphocytes/100 WBC (Bld) 6.1 % 19-41 [facility] Work Phone: Blood monocytes/100 leukocyt eson 05-12-2022 Monocytes/100 WBC (Bld) 5.1 % 0-10 [facility] Work Phone: Blood platelet mean volumeon 05-12-2022 Platelet mean volume (Bld) [Entitic vol] 9.9 fL 6.2-12.0 [facility] Work Phone: Determination of erythrocyte mean corpuscular volume (MCV)on 05-12-2022 MCV (RBC) [Entitic vol] 93.8 fL 80-94 [facility] Work Phone: Hematocrit Auto (Bld) [Volum e fraction]on 05-12-2022 Hematocrit (Bld) [Volume fraction] 48.0 % 40-54 [facility] Work Phone: Laboratory - Chemistry and C hemistry - challengeon 05-12-2022 CO2 [Moles/Vol] 31.0 mmol/L 21.0-32.0 [facility] Work Phone: Urea nitrogen/Creatinine [Mass ratio] 24.8 mg/mg 10-20 [facility] Work Phone: Laboratory - Hematology and Cell countson 05-12-2022 Erythrocyte distribution width (RBC) [Entitic vol] 47.3 fL 35.1-43.9 [facility] Work [facility]: Erythrocyte distribution width (RBC) [Ratio] 13.8 % 11.6-14.6 [facility] Work Phone: Immature granulocytes/100 WBC (Bld) 1.600 % 0.0-0.9 [facility] Work Phone: Comment on above: IG% - Immature Granu locytes (promyelocytes, myelocytes and metamyelocytes) > 1% indicates that a LEFT SHIFT is Present. MCH (RBC) [Entitic mass] 29.9 pg 27.0-32.0 [facility] Work Phone: Nucleated RBC/100 WBC (Bld) [Ratio] 0 % 0-5 [facility] Work Phone: MCHC Auto (RBC) [Mass/Vol]on 05-12-2022 MCHC (RBC) [Mass/Vol] 31.9 g/dL 32-36 [facility] Work Phone: No Panel Informationon 05-12 Estimated Creatinine Clearance Calc 99.19 ml/min [facility] Work Phone: Estimated GFR (MDRD) Amer 106 mL/min >60 [facility] Work Phone: Comment on above: GFR Calc Estimated GFR (MDRD) Non-Af Amer 88 mL/min >60 [facility] Work Phone: Comment on above: Non- GFR Calc Platelets bldon 05-12-2022 Platelets (Bld) [#/Vol] 285 10*3/uL 150-450 [facility] Work Phone: Serum or plasma calcium trupti urement (mass/volume)on 05-12-2022 Calcium [Mass/Vol] 8.8 mg/dL 8.5-10.1 [facility] Work Phone: Serum or plasma creatinine m easurement (mass/volume)on 05-12-2022 Creatinine [Mass/Vol] 0.97 mg/dL 0.70-1.30 [facility] Work Phone: Comment on above: The validity of the calculated GFR & GFRAA in patients over 70 years has not been determined. Clinical correlation is essential. Serum or plasma urea nitroge n measurement (mass/volume)on 05-12-2022 Urea nitrogen [Mass/Vol] 24 mg/dL 7-18 [facility] Work Phone: Thin prep Papanicolaou smear with manual screeningon 05-12-2022 Thin prep Papanicolaou smear with manual screening 6 -15 [facility] Work Phone: Basophil percentageon 2021 Bilirubin [Mass/Vol] 0.80 mg/dL 0.20-1.00 [facility] Work Phone: Comment on above: For patients on eltr ombopag therapy, use of Dimension Vanleer TBIL is not recommended. Protein [Mass/Vol] 7.3 g/dL 6.4-8.2 [facility] Work Phone: Laboratory - Chemistry and C hemistry - challengeon 05-10-2022 ALP [Catalytic activity/Vol] 81 U/L 45-117 [facility] Work Phone: ALT [Catalytic activity/Vol] 26 U/L 16-61 [facility] Work Phone: Globulin (S) [Mass/Vol] 3.8 g/dL 2.2-4.2 [facility] Work Phone: Magnesium [Mass/Vol] 2.3 mg/dL 1.6-2.6 [facility] Work Phone: Laboratory - Microbiology an d Antimicrobial susceptibilityon 05-10-2022 SARS-CoV-2 (COVID-19) RNA DEEPTI+probe Ql (Unsp spec) Not detected Not Detect [facility] Work Phone: Comment on above: Normal Reference Ran ge: Not DetectedMethod:(RT-PCR) real-time reverse transcriptase PCRLuminex JUSTINA Instrument*The Food and Drug Administration (FDA) has issued an Emergency Use Authorization (EAU) for the JUSTINA SARS-CoV-2 Assay for the rapid detection of the virus that causes COVID-19. This test has been validated, but the FDAs independent review of this validation is pending.*Negative results do not preclude infection and should not be used as the sole basis for treatment or patient management. Optimum specimen types and timing for peak viral levels during infections caused by SARS-CoV-2 have not been determined. Collection of multiple specimens from the same patient may be necessary to detect the virus. The possibility of a false negative result should be considered if the patient has clinical presentation or has had recent exposure. Serum or plasma albumin trupti urement (mass/volume)on 05-10-2022 Albumin [Mass/Vol] 3.5 g/dL 3.2-5.0 [facility] Work Phone: Serum or plasma albumin/glob ulin mass ratioon 05-10-2022 Albumin/Globulin [Mass ratio] 0.9 {ratio} 0.9-2.4 [facility] Work Phone: Thin prep Papanicolaou smear with manual screeningon 05-10-2022 Thin prep Papanicolaou smear with manual screening 14 U/L 15-37 [facility] Work Phone: Basophil percentageon 2021 Lactate [Moles/Vol] 0.9 mmol/L 0.4-2.0 [facility] Work Phone: Laboratory - Chemistry and C hemistry - challengeon 05-09-2022 Natriuretic peptide B (Bld) [Mass/Vol] 93.6 pg/mL 0-100 [facility] Work Phone: No Panel Informationon 05-09 Troponin I High Sensitivity 38 pg/mL 3.0-78.0 [facility] Work Phone: Comment on above: Please Note: New Estefani t Units and Gender Specific Reference Ranges. For more information see Policy Stat Procedure Vanleer High Sensitivity Troponin (TNIH) and attachments. No Panel Informationon 05-02 Troponin I High Sensitivity 78 pg/mL 3.0-78.0 [facility] Work Phone: Comment on above: Please Note: New Estefani t Units and Gender Specific Reference Ranges. For more information see Policy Stat Procedure Vanleer High Sensitivity Troponin (TNIH) and attachments. Absolute lymphocyte counton 05-01-2022 Lymphocytes Auto (Unsp spec) [#/Vol] 1.74 10*3/uL 0.83-4.51 [facility] Work Phone: Basophil percentageon 2021 Basophils/100 WBC (Bld) 0.5 % 0-1 [facility] Work Phone: Chloride [Moles/Vol] 108 mmol/L 98-107 [facility] Work [facility]: Eosinophils/100 WBC (Bld) 1.1 % 0-5 [facility] Work Phone: Glucose [Mass/Vol] 97 mg/dL 74-106 [facility] Work Phone: Neutrophils (Bld) [#/Vol] 8.6 10*3/uL 2.0-7.7 [facility] Work Phone: [phone] Neutrophils/100 WBC (Bld) 75.7 % 47-70 [facility] Work Phone: Potassium [Moles/Vol] 4.0 mmol/L 3.5-5.1 [facility] Work Phone: [phone] Comment on above: Moderate Hemolysis, Result may be falsely increased. Sodium [Moles/Vol] 142 mmol/L 136-145 [facility] Work Phone: WBC (Bld) [#/Vol] 11.3 10*3/uL 4.4-11.0 [facility] Work Phone: Blood erythrocytes count (nu mber/volume)on 05-01-2022 RBC (Bld) [#/Vol] 4.92 10*6/uL 4.6-6.2 [facility] Work Phone: Blood hemoglobin measurement (mass/volume)on 05-01-2022 Hemoglobin (Bld) [Mass/Vol] 14.9 g/dL 13.0-16.5 [facility] Work Phone: Blood lymphocytes/100 leukoc yteson 05-01-2022 Lymphocytes/100 WBC (Bld) 15.4 % 19-41 [facility] Work Phone: [phone] Blood monocytes/100 leukocyt eson 05-01-2022 Monocytes/100 WBC (Bld) 6.8 % 0-10 [facility] Work Phone: Blood platelet mean volumeon 05-01-2022 Platelet mean volume (Bld) [Entitic vol] 10.4 fL 6.2-12.0 [facility] Work Phone: Determination of erythrocyte mean corpuscular volume (MCV)on 05-01-2022 MCV (RBC) [Entitic vol] 91.9 fL 80-94 [facility] Work Phone: Hematocrit Auto (Bld) [Volum e fraction]on 05-01-2022 Hematocrit (Bld) [Volume fraction] 45.2 % 40-54 [facility] Work Phone: Laboratory - Chemistry and C hemistry - challengeon 05-01-2022 CO2 [Moles/Vol] 27.0 mmol/L 21.0-32.0 [facility] Work Phone: Urea nitrogen/Creatinine [Mass ratio] 19.5 mg/mg 10-20 [facility] Work Phone: Laboratory - Hematology and Cell countson 05-01-2022 Erythrocyte distribution width (RBC) [Entitic vol] 44.4 fL 35.1-43.9 [facility] Work Phone: Erythrocyte distribution width (RBC) [Ratio] 13.2 % 11.6-14.6 [facility] Work Phone: Immature granulocytes/100 WBC (Bld) 0.500 % 0.0-0.9 [facility] Work Phone: Comment on above: IG% - Immature Granu locytes (promyelocytes, myelocytes and metamyelocytes) > 1% indicates that a LEFT SHIFT is Present. MCH (RBC) [Entitic mass] 30.3 pg 27.0-32.0 [facility] Work Phone: Nucleated RBC/100 WBC (Bld) [Ratio] 0 % 0-5 [facility] Work Phone: MCHC Auto (RBC) [Mass/Vol]on 05-01-2022 MCHC (RBC) [Mass/Vol] 33.0 g/dL 32-36 [facility] Work Phone: No Panel Informationon 05-01 Estimated Creatinine Clearance Calc 104.58 ml/min [facility] Work Phone: Estimated GFR (MDRD) Amer 112 mL/min >60 [facility] Work Phone: Comment on above: GFR Calc Estimated GFR (MDRD) Non-Af Amer 93 mL/min >60 [facility] Work Phone: Comment on above: Non- GFR Calc Platelets bldon 05-01-2022 Platelets (Bld) [#/Vol] 213 10*3/uL 150-450 [facility] Work Phone: Serum or plasma calcium trupti urement (mass/volume)on 05-01-2022 Calcium [Mass/Vol] 8.9 mg/dL 8.5-10.1 [facility] Work Phone: Serum or plasma creatinine m easurement (mass/volume)on 05-01-2022 Creatinine [Mass/Vol] 0.92 mg/dL 0.70-1.30 [facility] Work Phone: Comment on above: The validity of the calculated GFR & GFRAA in patients over 70 years has not been determined. Clinical correlation is essential. Serum or plasma urea nitroge n measurement (mass/volume)on 05-01-2022 Urea nitrogen [Mass/Vol] 18 mg/dL 7-18 [facility] Work Phone: Thin prep Papanicolaou smear with manual screeningon 05-01-2022 Thin prep Papanicolaou smear with manual screening 7 5-15 [facility] Work Phone: No Panel Information Respiratory Panel (PCR) [facility] Work Phone: SARS-CoV-2 & FLU Antigen (Rapid) [facility] Work Phone: Streptococcus pneumoniae Antigen (M [facility] Work Phone: Vital Signs Date Time Vital Sign Value Performing Clinician Facility 02-01-2023 00:05-0400 Diastolic blood pressure 117 mm[Hg] [facility] 02-01-2023 00:05-0400 Heart rate 94 /min [facility] 02-01-2023 00:05-0400 Respiratory rate 21 /min [facility] 02-01-2023 00:05-0400 SaO2% (BldA) [Mass fraction] 95 % [facility] 02-01-2023 00:05-0400 Systolic blood pressure 185 mm[Hg] [facility] 01-31-2023 23:15-0400 Inhaled oxygen flow rate 2 L/min [facility] 01-31-2023 19:03-0400 Body height 180.34 cm [facility] 01-31-2023 19:03-0400 Body mass index (BMI) [Ratio] 55.4 kg/m2 [facility] 01-31-2023 19:03-0400 Body temperature 98 [degF] [facility] 01-31-2023 19:03-0400 Body weight 180.34 kg [facility] 05-12-2022 12:00-0500 Body temperature 98.1 [degF] No Primary Care Physician [facility] Work Phone: 05-12-2022 12:00-0500 Diastolic blood pressure 86 mm[Hg] No Primary Care Physician [facility] Work Phone: 05-12-2022 12:00-0500 Heart rate 95 /min No Primary Care Physician [facility] Work Phone: 05-12-2022 12:00-0500 Respiratory rate 16 /min No Primary Care Physician [facility] Work Phone: 05-12-2022 12:00-0500 SaO2% (BldA) [Mass fraction] 94 % No Primary Care Physician [facility] Work Phone: 05-12-2022 12:00-0500 Systolic blood pressure 145 mm[Hg] No Primary Care Physician [facility] Work Phone: 05-12-2022 04:28-0500 Body weight 185 kg No Primary Care Physician [facility] Work Phone: 05-12-2022 02:40-0500 Inhaled oxygen concentration 2 % No Primary Care Physician [facility] Work Phone: 05-12-2022 02:40-0500 Inhaled oxygen flow rate 1 L/min No Primary Care Physician [facility] Work Phone: 05-10-2022 11:46-0500 Body height 180.34 cm No Primary Care Physician [facility] Work Phone: 05-09-2022 23:34-0500 Body mass index (BMI) [Ratio] 58.1 kg/m2 No Primary Care Physician [facility] Work Phone: 05-02-2022 14:00-0400 Inhaled oxygen flow rate 2 L/min [facility] Work Phone: 05-02-2022 03:22-0400 Diastolic blood pressure 94 mm[Hg] [facility] Work Phone: 05-02-2022 03:22-0400 Heart rate 74 /min [facility] Work Phone: 05-02-2022 03:22-0400 Respiratory rate 16 /min [facility] Work Phone: 05-02-2022 03:22-0400 SaO2% (BldA) [Mass fraction] 97 % [facility] Work Phone: 05-02-2022 03:22-0400 Systolic blood pressure 157 mm[Hg] [facility] Work Phone: 05-01-2022 21:15-0400 Body height 180.34 cm [facility] Work Phone: 05-01-2022 21:15-0400 Body mass index (BMI) [Ratio] 50.1 kg/m2 [facility] Work Phone: 05-01-2022 21:15-0400 Body temperature 98 [degF] [facility] Work Phone: 05-01-2022 21:15-0400 Body weight 163 kg [facility] Work Phone: Encounters Encounter Date Encounter Type Care Provider Facility Start: 11-29-2024 End: 11-29-2024 ambulatory Delicia Pacheco REGISTERED NURSE CARDIOVASCULAR ICU-C Work Phone: [facility] Work Phone: Start: 11-29-2024 End: 11-29-[address] [facility] Delicia Pacheco REGISTERED NURSE CARDIOVASCULAR ICU-C -Laboratory Stacie Gaytan Start: 11-29-2024 End: 11-29-[address] [facility] Facility:[facility] Start: 08-29-2024 End: 08-29-2024 ambulatory Delicia Pacheco REGISTERED NURSE CARDIOVASCULAR ICU-C Work Phone: [facility] Work Phone: Start: 08-29-2024 End: 08-29-[address] [facility] Deliciacharissa Bergman REGISTERED NURSE CARDIOVASCULAR ICU-C -Laboratory, Stacie Gaytan Start: 08-29-2024 End: 08-29-[address] [facility] Facility:[facility] Start: 04-25-2024 End: 04-25-[address] [facility] Facility:[facility] Start: 06-14-2023 Non-patient / Non-visit REGISTERED NURSE CARDIOVASCULAR ICU-C Dejuan Witt REGISTERED NURSE CARDIOVASCULAR ICU Work Phone: [facility] Start: 06-14-2023 End: 06-14-2023 ambulatory REGISTERED NURSE CARDIOVASCULAR ICU-C Getachew Witt REGISTERED NURSE CARDIOVASCULAR ICU Work Phone: [facility] Work Phone: Start: 06-14-2023 End: 06-14-2023 Patient encounter procedure REGISTERED NURSE CARDIOVASCULAR ICU-C Getachew Witt REGISTERED NURSE CARDIOVASCULAR ICU Work Phone: [facility] Work Phone: Start: 01-31-2023 End: 02-01-2023 Emergency department patient visit [facility] Work Phone: Start: 05-12-2022 Non-patient / Non-visit No Telma yao Care Physician [facility] Start: 05-11-2022 Non-patient / Non-visit No Telma yao Care Physician [facility] Start: 05-10-2022 Non-patient / Non-visit No Telma yao Care Physician [facility] Start: 05-09-2022 End: 05-12-2022 Evaluation and management of inpatient No Primary Care Physician [facility] 3 Start: 05-09-2022 Non-patient / Non-visit No Telma Huertas Physician [facility] Start: 05-01-2022 End: 05-02-2022 Emergency department patient visit [facility] Procedures Date Procedure Procedure Detail Performing Clinician Start: 01-31-2023 Plain chest X-ray Start: 01-31-2023 SARS-CoV-2 & FLU Ant igen (Rapid) Start: 05-09-2022 Plain chest X-ray [facility] Care Physician Legionella pneumophi la antigen assay No Primary Care Physician [facility] SARS-CoV-2 & FLU Ant igen (Rapid) No Primary Care Physician Streptococcus pneumo niae Antigen (M No Primary Care Physician Plan of Treatment Date Care Activity Detail Author Start: 05-12-2022 Patient discharge [facility] Work Phone: Start: 05-11-2022 Inhalation therapy procedure [facility] Work Phone: Start: 05-11-2022 [facility] Work Phone: Start: 05-09-2022 Following clinical p athway protocol [facility] Work Phone: Start: 05-09-2022 Assessment of risk o f venous thromboembolism [facility] Work Phone: Start: 05-09-2022 Incentive spirometry [facility] Work Phone: Start: 05-09-2022 Insertion of cathete r into peripheral vein [facility] Work Phone: Start: 05-09-2022 Introduction of urin jacque catheter [facility] Work Phone: Start: 05-09-2022 Measuring intake and output [facility] Work Phone: Start: 05-09-2022 Oxygen therapy [facility] Work Phone: Start: 05-09-2022 Patient referral to dietitian [facility] Work Phone: Start: 05-09-2022 Providing care accor ding to standard [facility] Work Phone: Start: 05-09-2022 Provision of activit y privileges [facility] Work Phone: Start: 05-09-2022 Referral to service [facility] Work Phone: Start: 05-09-2022 [facility] Work Phone: Start: 05-09-2022 Admission procedure [facility] Work Phone: Start: 05-09-2022 Blood culture [facility] Work Phone: Start: 05-09-2022 Patient referral to dietitian [facility] Work Phone: Bacteria identified in Blood by Culture Blood Culture [facility] Work Phone: Patient Education [facility] Work Phone: Patient referral [facility] Work Phone: Immunizations Immunization Date Immunization Notes Care Provider Fa cility 12-05-2020 Covid (Pfizer) No Primary Ca re Physician [facility] 11-14-2020 Covid (Pfizer) No Primary Ca re Physician [facility] Payers Date Payer Category Payer Private Health Insurance [id number] 2024 Self-pay Self-pay SELF PAY INSURANCE [id number] Unknown ANTHEM [id number] Unknown [employer] [id number] Unknown [facility] [id number] Unknown [facility] [id number] Unknown [id number] Unknown [id number] Unknown [id number] Social History Date Type Detail Facility Start: 05-01-2022 End: 01-31-2023 Tobacco smoking status NHIS Unknown if ever smoked [facility] Start: 09-12-2021 None [facility] Start: 09-12-2021 Cigarettes [facility] Start: 1975 Sex Assigned At Male [facility] Start: 01-31-2023 Tobacco smoking stat us NHIS Smokes tobacco daily (finding) [facility] Start: 09-11-2024 Sex Male (finding) [facility] Goals Date Patient Goal Desired Activity /State Functional Status Date Assessment Result Facility 05-12-2022 Functional status Ambulates [facility] Work Phone: Mental Status Date Assessment Result Facility 01-31-2023 Cognitive function Level Of Cons ciousness Awake;Alert;Appropriate;Follow s Commands [facility] Work Phone: 05-12-2022 Cognitive function Voice/Name [facility] Work Phone: 05-01-2022 Cognitive function Level Of Cons ciousness Awake;Alert;Appropriate;Follow s Commands [facility] Work Phone: Discharge summary 01-31-2023 Note Date & Type Note Facility 01-31-2023 Discharge summary Note Date/Time January 31, 2023 7:10pm [facility] Medical Records Department [address] [place] [address] Emergency Department Summary 01/31/23 MR#: [id number] Acct: [id number] Name: ZABRINA THIBODEAUX Rep #:[id number] : 1975 47 From: Alexy Holloway PCP: Care Physician,No Primary Status :REG ER Location: ED HPI History of Present Illness Chief Complaint: General Illness PFSH PFSH Medical History (Updated 01/31/23 @ 23:[address] Alexy Randle, DO) Bilateral pneumonia Congestive heart failure (CHF) COPD exacerbation COPD with asthma HTN (hypertension) Hypoxia Kidney stones Morbid obesity Myocardial infarct Sleep apnea Smoker Tobacco abuse disorder Home Medications albuterol sulfate 90 mcg/actuation aerosol inhaler 2 inh inhalation Q4H PRN shortness of breath or wheezing 01/31/23 [History Last Taken Unknown] lisinopril 20 mg tablet 20 mg PO DAILY 30 days #30 tabs 01/31/23 [Rx Last Taken Unknown] Allergy/AdvReac Type Severity Reaction Status Date / Time No Known Allergies Allergy Verified 01/31/23 19:03 Family History (Updated 05/09/22 @ 22:[address] Meghan Mejía MD) Father Diabetes Surgical History (Updated 05/09/22 @ 20:[address] Meghan Mejía MD) History of lithotripsy History of tonsillectomy and adenoidectomy Hx of cholecystectomy Social History (Updated 05/09/22 @ 20:[address] Meghan Mejía MD) Smoking Status: Current every day smoker tobacco type: cigarettes alcohol intake: never substance use type: does not use EXAM Physical Exam Const Vital Signs: 01/31/23 19:03 01/31/23 19:41 01/31/23 19:45 Temperature 98 F Temperature Source Temporal Pulse Rate 111 H 103 H Respiratory Rate 20 H 14 Respiratory Pattern Normal Blood Pressure 213/123 H 228/134 H Blood Pressure Mean 153 165 Pulse Ox 96 94 Oxygen Delivery Method Room Air Oxygen Flow Rate (L/min) 01/31/23 21:00 01/31/23 21:16 01/31/23 21:31 Temperature Temperature Source Pulse Rate 102 H 94 94 Respiratory Rate 16 Respiratory Pattern Blood Pressure 230/141 H 240/150 H 226/145 H Blood Pressure Mean 170 Pulse Ox Oxygen Delivery Method Oxygen Flow Rate (L/min) 01/31/23 23:15 Temperature Temperature Source Pulse Rate 85 Respiratory Rate 18 Respiratory Pattern Blood Pressure 192/116 H Blood Pressure Mean 141 Pulse Ox 96 Oxygen Delivery Method Nasal Cannula Oxygen Flow Rate (L/min) 2 [facility] Narrative Medical decision making narrative: HISTORY OF PRESENT ILLNESS: 47-year-old male here with a chief complaint of abdominal pain and shortness of breath. The patient notes last 2 days he had worsening dyspnea on exertion. Notes scrotal and leg swelling. States he supposed be on blood pressure medicine but has not been taking it. The patient denies recent surgery in the last 4 weeks or immobilization in the last 3 days, denies previous diagnosis of DVT or PE, hemoptysis, unilateral leg swelling or malignancy with treatment the last 6 months. No estrogen use noted. He denies any cough. Does note he felt hot prior to arrival. Notes his belly is been hurting him he has been having diarrhea. He denies any melena. He denies any recent antibiotic use or hospitalization. No recent travel. Denies any history of abdominal surgery. REVIEW OF SYSTEMS: Pertinent positives: Shortness of breath, abdominal pain, diarrhea, leg swelling, scrotal swelling Pertinent negatives: Unilateral leg swelling, hemoptysis, estrogen use PHYSICAL EXAM: Nursing triage notes reviewed, Vital signs reviewed Constitutional: please see mdm HENT: MMM Eyes: Pupils equal round and reactive to light, Extraocular muscles intact Neck: No stridor, no JVD, full neck ROM Lungs: Exam limited secondary to body habitus, no obvious rales or wheezing. Noincreased work of breathing, no conversational dyspnea. Heart: Regular rate and rhythm, No murmurs, No rubs and No gallops, 2+ distal pulses (radial, femoral, posterior tibial) in all extremities Abdomen: Soft, there is no tenderness, rigidity, rebound or guarding, no obviousperitoneal signs, no palpable pulsatile abdominal masses, no auscultated abdominal bruit : No CVAT, scrotum is edematous bilaterally, nontender, positive cremasteric reflex Extremities: 2+ pitting edema bilateral lower extremities Neuro: No focal neurological deficits, cranial nerves II through XII intact, 5/5strength in all extremities. Intact sensation to light touch in all extremities,2+ reflexes bilateral patella tendons. Normal gait. No ataxia. Skin: No rash or lesions noted MEDICAL DECISION MAKING: Chief Complaint: Shortness of breath, bilateral lower extremity edema, External records reviewed: Last ED visit in August 2022 for pneumonia. Echocardiogram 2013 shows ejection fraction 75% Factors affecting care: Hypertension Social determinants of health: History of tobacco abuse History obtained from others: Patient's significant other Consults: none ALL IMAGES (IF OBTAINED) HAVE BEEN PERSONALLY REVIEWED AND INTERPRETED BY MYSELF. MDM Narrative: The patient was initially tachycardic, hypertensive, tachypneic. Exam most consistent with CHF exacerbation given shortness of breath, hypertension, bilateral lower extremity edema. I considered the following differential diagnosis: Pneumonia, viral infection, PE, CHF exacerbation, anemia, arrhythmia, myocardial ischemia, asthma or COPD exacerbation Patient no focal lung findings to suggest a COPD exacerbation. Chest x-ray was read person by myself showed no evidence of obvious pneumonia. There was no pulmonary edema, BNP was within normal limits to suggest CHF. EKG was nonischemic and not arrhythmia genic. No significant anemia noted troponin was negative x2. COVID and flu test was also negative. Patient remained persistently hypertensive despite oral medicines. He was into the IV labetalol with improvement in blood pressure. Patient A1c was reassuring. No clear life-limiting etiology be ascertained. Suspect the patient symptoms are secondary touncontrolled hypertension. The patient was not hypoxic or on oxygen on my finalevaluation. Saturating well on room air. The patient and/or family, caregivers express understanding. The patient and/orfamily, caregivers agrees with the plan. Shared decision making: I will have a discussion with the patient and or visitors regarding risk/benefits of further testing or admission. They will be made aware of of the risk/benefits inherent in this decision they will be given the opportunity to voice understanding. Total critical care time today provided was at least 0 minutes. This excludes separately billable procedures. Critical care time (if documented) is secondary to the patient having high probability of clinically significant/life threatening deterioration in the patient's condition which required my urgent intervention. Lab Data Attestation: I reviewed the patient's lab results. Lab results narrative: EKG with normal sinus rhythm, normal axis, prolonged QT and, no STEMI CBC with leukocytosis, no anemia, no thrombocytopenia BMP with mild hypokalemia, no anion gap suggest endorgan hypoperfusion, no acutekidney injury LFTs show no evidence of hepatobiliary pathology. Troponin is negative, no evidence of myocardial ischemia x2 Lipase is wnl indicating no pancreatic inflammation. Labs: Laboratory Results - last 24 hr 01/31/23 01/31/23 01/31/23 19:35 20:55 21:35 WBC 11.3 H RBC 4.80 Hgb 14.3 Hct 45.8 MCV 95.4 H MCH 29.8 MCHC 31.2 L RDW Std Deviation 49.0 H RDW Coeff of Angelo 14.0 Plt Count 203 MPV 10.0 Immature Gran % (Auto) 0.600 Neut % (Auto) 78.7 H Lymph % (Auto) 10.9 L [place] % (Auto) 8.6 Eos % (Auto) 0.7 Baso % (Auto) 0.5 Absolute Neuts (auto) 8.9 H Absolute Lymphs (auto) 1.24 Nucleated RBC % 0 Sodium 141 Potassium 3.2 L Chloride 106 Carbon Dioxide 29.0 Anion Gap 6 BUN 15 Creatinine 1.02 Estim Creat Clear Calc 93.30 Est GFR (MDRD) Af Amer 100 Est GFR (MDRD) Non-Af 82 BUN/Creatinine Ratio 14.7 Glucose 95 Hemoglobin A1c 5.3 Calcium 8.1 L Total Bilirubin 0.70 Direct Bilirubin 0.18 AST 14 L ALT 17 Alkaline Phosphatase 73 Troponin I High Sens 43 47 B-Natriuretic Peptide 99.8 Total Protein 6.2 L Albumin 3.2 Globulin 3.0 Lipase 30 Radiography Diagnostic Testing: Clinical Impression(s) from Imaging Studies Chest X-Ray 01/31/23 19:35 IMPRESSION: No radiographic evidence of acute cardiopulmonary disease. Electronically Signed: Cari Ku MD at 19:47 EDT [place] Location ID and State: [id number] / Tel , Service support , Discharge Plan Triage Chief Complaint: General Illness ED Provider: Alexy Randle Dx/Rx/DC Orders Clinical Impression: Uncontrolled hypertension Instructions: Hypertension Dc Prescriptions: New lisinopril 20 mg tablet 20 mg PO DAILY 30 Days Qty: 30 0RF No Action albuterol sulfate 90 mcg/actuation HFA aerosol inhaler 2 inh INHALATION Q4H PRN (Reason: shortness of breath or wheezing) Patient Comments: Inhale 2 puffs by mouth every 6 hours for 10 days. Primary Care Provider: Care Physician,No Primary Referrals: Ravi Bell MD [[facility]] - Activity Restrictions/Additional Instructions: Thank you for trusting us with your care today! Please take Tylenol (2 pills, 650 mg), ibuprofen (2 pills, 400 mg) every 6 hoursas needed for pain and fever control. Please call your primary care physician for outpatient blood pressure titration. Please return to the emergency department if your symptoms change or worsen. Please follow with your primary care physician for further outpatient evaluationand management. Disposition Disposition: Home, Self Care What to do if you have Problems For any increased pain, shortness of breath, bleeding, nausea or vomiting, chestpain, or any unexpected problems, contact your Primary Care Provider. Call [facility] ([phone]) or report to the closest Emergency Room. Call 911 if necessary. 02/01/23 0004 <Electronically signed by Alexy Randle DO> Cosigner Signature (if applicable): CC: No Primary Care Physician ~ Signed [facility] Work Phone: Evaluation note Note Date & Type Note Facility Evaluation note No assessment information availa ble [facility] Work Phone: Evaluation note Note Date & Type Note Facility Evaluation note Diagnosis Onset Date Bilateral pneumonia acute Hypoxia acute COPD exacerbation chronic [facility] Work Phone: Hospital Discharge instructions Note Date & Type Note Facility Hospital Discharge instructions Additional Instructions Please continue your blood pressure medications as previously directed and return to the ER should you have any further concerns [facility] Work Phone: Hospital Discharge instructions Note Date & Type Note Facility Hospital Discharge instructions Additional Instructions Thank you for trusting us with your care today! Please take Tylenol (2 pills, 650 mg), ibuprofen (2 pills, 400 mg) every 6 hours as needed for pain and fever control. Please call your primary care physician for outpatient blood pressure titration. Please return to the emergency department if your symptoms change or worsen. Please follow with your primary care physician for further outpatient evaluation and management. [facility] Work Phone: Reason for referral (narrative) Note Date & Type Note Facility Reason for referral (narrative) No reason for referral information available [facility] Work Phone: Chief Complaint and Reason for Visit Chief Complaint HTN Chief Complaint HTN COPD, PNEUMONIA, HYPERTENSION COPD, PNEUMONIA, HYPERTENSION COPD, PNEUMONIA, HYPERTENSION COPD, PNEUMONIA, HYPERTENSION COPD, PNEUMONIA, HYPERTENSION Reason for Visit Bilateral pneumonia Hypoxia COPD exacerbation Chief Complaint MULTIPLE COMPLAINTS Chief Complaint EDEMA Advance Directives No Advanced Directives Records Found Advance Directive Response Recorded Date/ Time Living Will No May 01 9:21pm Power of Usability Strategist No May 01, 2022 9:21pm Advance Directive Response Recorded Date/ Time Living Will No May 09 11:34pm Power of Usability Strategist No May 09, 2022 11:34pm Advance Directive Response Recorded Date/ Time Living Will No January 31, 2023 7:45pm Power of Usability Strategist No January 31 7:45pm Advance Directive Response Recorded Date/ Time Living Will No January 31, 2023 6:45pm Power of Usability Strategist No January 31 6:45pm Summary Purpose Family History No Family History Records Found Additional Source Comments Goals (unrecognized section and content) Goals may be documented in a n alternate sectionGoals may be documented in an alternate sectionGoals may be documented in an alternate sectionGoals may be documented in an alternate sectionGoals may be documented in an alternate section Care Teams (unrecognized sec tion and content) Team Status: Active Member Role Status Dates No Primary Care Physician Family Provider Active No Primary Care Physician Primary Care Provider Active Team Status: Inactive Member Role Status Dates No Primary Care Physician Primary Care Provider Active Dr. Alexy Randle , Emergency Provider Active Team Status: Active Member Role Status Dates No Primary Care Physician Family Provider Active Getachew Witt REGISTER[facility] N[facility]SE [facility], REGISTERED NURSE CARDIOVASCULAR ICU-C Primary Care Provider Active Team Status: Active Member Role Status Dates Getachew Witt NP, REGISTERED NURSE C[facility]-C Primary Care Provider Active Dr. Lenard Heredia MD Attending Provider Active Team Status: Inactive Member Role Status Dates Getachew Witt NP, REGISTERED NURSE [facility]-C Primary Care Provide r, Attending Provider, Referring Provider Active Team Status: Active Member Role Status Dates No Primary Care Physician Family Provider Active Delicia MADISON, REGISTERED NURSE CARDIOVASCULAR ICU-C Primary Care Provider Activ e Team Status: Inactive Member Role Status Dates Delicia MADISON, REGISTERED NURSE CARDIOVASC[facility] ICU-C Primary Care Provider Activ e Start: August 29, 2024 End: August 29, 2024 Delicia MADISON, REGISTERED NURSE CARDIOVASCULAR ICU-C Attending Provider Active Start: August 29, 2024 End: August 29, 2024 Team Status: Inactive Member Role Status Dates Delicia MADISON REGISTERED NURSE CARDIOVASCULAR ICU-C Primary Care Provider Activ e Start: November 29, 2024 End: November 29, 2024 CT Riggs Attending Provider Active Start: November 29, 2024 End: November 29, 2024 (unrecognized sect ion and content) No Status Records Found INFORMATION SOURCE (unrecogn ized section and content) DATE CREATED AUTHOR 12/08/2024 [facility] FOR RECORDS PERTAINING TO PATIENTS WHO ARE OR HAVE BEEN ENROLLED IN A CHEMICAL DEPENDENCY/SUBSTANCEABUSE PROGRAM, SOME INFORMATION MAY BE OMITTED. This clinical summary was aggregated from multiple sources. Caution should be exercised in using it in the provision of clinical care. This summary normalizes information from multiple sources, and as a consequence, information in this document may materially change the coding, format and clinical context of patient data. In addition, data may be omitted in some cases. CLINICAL DECISIONS SHOULD BE BASED ON THE PRIMARY CLINICAL RECORDS. [employer] provides no warranty or guarantee of the accuracy or completeness of information in this document.
[2025-01-06 20:05] VITALS: BP 138/90; PULSE 90; RESP 16; TEMP 37; O2SAT 97
== END 2025-01-06 20:05 | disposition home or self-care (01) ==
LOC: ED 19:48
PROVIDERS: Emergency Provider Emergency Medicine; PCP Nurse Practitioner Family; Visit Provider Emergency Medicine
DX: L03.116 Cellulitis of left lower limb (principal); J44.9 Chronic obstructive pulmonary disease, unspecified; S80.812A Abrasion, left lower leg, initial encounter; Z23 Encounter for immunization; I10 Essential (primary) hypertension; Z90.49 Acquired absence of other specified parts of digestive tract; F17.210 Nicotine dependence, cigarettes, uncomplicated; I25.2 Old myocardial infarction; W55.03XA Scratched by cat, initial encounter
CPT/HCPCS: 90471; 90715; 99283

== ENCOUNTER → 2025-03-20 | Outpatient (CLI) | payer OTHER, SELFPAY ==
[2025-03-20 16:55] LABS: Anion Gap 13 (5-15); BUN 14 mg/dL (4-19); BUN/Creat Ratio 10.3 RATIO (10-20); Calcium,Total 9.0 mg/dL (7.6-11.0); Carbon Dioxide 30.1 mmol/L (21.0-32.0); Chloride 98 mmol/L (98-108); Glucose 97 mg/dL (70-99); Potassium 3.5 mmol/L (3.3-5.1); Pro- Brain NATRIURETIC PEPTIDE 84 pg/mL (<=900)
== END | disposition home or self-care (01) ==
LOC: VSLAB 13:31
PROVIDERS: PCP Nurse Practitioner Family; Visit Provider Nurse Practitioner Family
DX: I10 Essential (primary) hypertension (principal); R60.0 Localized edema
CPT/HCPCS: 36415; 80048; 83880